=== PATIENT | female | born 1945 | race Caucasian/White ===

== ENCOUNTER 2020-10-06 15:58 | Inpatient (IN) ==
[2020-10-06] MEDS ORDERED: 0.9 % SODIUM CHLORIDE 250 ML IV SCH (20:00)
[2020-10-06] MEDS ORDERED: ALBUTEROL SULFATE 2.5 MG/3 ML NEBULIZER NEB PRN (20:13)
[2020-10-06] MEDS ORDERED: NITROGLYCERIN 0.4 MG TAB.SUBL SL PRN (20:13)
[2020-10-06] MEDS ORDERED: ONDANSETRON 4 MG/2 ML VIAL IV PRN (20:13)
[2020-10-06] MEDS ORDERED: guaiFENesin/CODEINE 10 ML UDC PO PRN (20:27)
[2020-10-06] MEDS ORDERED: VANCOMYCIN PER PHARMACY IV SCH ×2 (20:30→20:39)
[2020-10-06] MEDS: HYDROcodone/APAP 5/325MG TABLET PO PRN (20:42)
[2020-10-06] MEDS: 0.9 % SODIUM CHLORIDE 10 ML SYRINGE IV SCH (20:43)
[2020-10-06] MEDS: HEPARIN 5,000 UNIT/ML VIAL SQ SCH (20:43)
--- NOTE | 2020-10-06 20:47 | Internal Med History&Physical ---
HPI History of Present Illness Patient information: Note initiated : 10/06/20 at 8:39 pm Service Date, if different from initiated Date: [] Patient: Radha Martínez 75 y/o F admitted on 10/06/20 for ankle. Chief Complaint: [] History of present illness: Ms. 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 The patient was admitted to the OSH on 10/03, managed with IV antibiotics and after discussing the findings with Dr. Antony who performed the initial surgery at [facility] she was transferred to [facility] due to a bed shortage at [facility]. The hospital at [facility] was complicated by C diff colitis which was diagnosed on 10/05, the patient was started on oral Vancomycin. Per the available documents the hospital stay was otherwise uncomplicated. She arrives in stable condition, she is a poor historian and does not know her medications well. Collateral information from her Daughter, Rhiannon, revealed that the patient developed right foot pain 1-2 weeks ago and wounds were noticed shortly after that. The patient apparently was weight bearing on the foot at that time. At the OSH she had a markedly elevated CRP concerning for osteomyelitis. Per report the patient had blood cultures drawn and wound cultures drawn at [facility]. She was treated with IV Vancomycin and Ceftriaxone. ROS reviewed in detail and pertiennt for recent chills, right foot pain, new wounds, and intermittent RUQ pain. Pertinent negatives are no chest pain or dyspnea, otherwise negative ROS. Constitutional Constitutional: Present chills; Absent fever(s) Cardiovascular Cardiovascular: Absent chest pain, chest pain at rest and dyspnea Respiratory Respiratory: Absent cough and dyspnea Gastrointestinal Gastrointestinal: Absent abdominal pain, constipation and nausea Genitourinary Genitourinary: Absent dysuria and urinary frequency Musculoskeletal Additional comments: Right foot and ankle pain. Integumentary Integumentary: Present skin ulcer and sores Neurological Neurological: Present as per HPI Psychiatric Psychiatric: Present as per HPI PFSH PFSH All Active Problems (Updated 10/06/20 @ 20:13 by Chase Kahn MD) Ankle wound (Acute) C. difficile colitis (Acute) Ankle fracture (Acute) Medical History (Updated 10/06/20 @ 20:13 by Chase Kahn MD) Atrial fibrillation (Acute) CKD (chronic kidney disease) (Acute) COPD (chronic obstructive pulmonary disease) (Acute) Diabetes mellitus (Acute) HFrEF (heart failure with reduced ejection fraction) (Acute) Neuropathy (Acute) Surgical History (Updated 10/06/20 @ 20:40 by Chase Kahn MD) Ankle fracture, right (Acute) Family History (Updated 10/06/20 @ 20:41 by Chase Kahn MD) Sister Diabetes mellitus Social History (Updated 10/06/20 @ 20:42 by Chase Kahn MD) smoking status: Former smoker alcohol intake frequency: does not drink substance use type: does not use MEDS/ALLERGIES Home Medications and Allergies Allergies Allergy/AdvReac Type Severity Reaction Status Date / Time No Known Drug Allergies Allergy Verified 10/06/20 19:54 EXAM Head Head exam: Present atraumatic and normal inspection Eye Eye exam: Present normal appearance; Absent scleral icterus ENT ENT exam: Present normal exam Neck Neck exam: Present full ROM; Absent lymphadenopathy and tenderness Respiratory Respiratory exam: Present normal respiratory exam; Absent accessory muscle use, respiratory distress and wheezes Cardiovascular Cardiovascular exam: Present normal rate and rhythm GI/Abdominal GI/Abdominal exam: Present soft; Absent distended and tenderness Extremities Exam Additional comments: right foot in soft cast, wounds on dorsal and medial aspect of foot. Neurological Exam Neurological exam: Present CN II-XII intact and oriented X3 Psychiatric Psychiatric exam: Absent agitated and anxious Skin Additional comments: wound on foot with serous drainage present DATA Data Completed and Pending Labs: Labs from last 24 hours 10/06/20 10/06/20 10/06/20 19:50 19:50 19:50 WBC Pending RBC Pending Hgb Pending Hct Pending MCV Pending MCH Pending MCHC Pending RDW Pending Plt Count Pending MPV Pending Platelet Estimate Pending RBC Morphology Pending PT Pending INR Pending C-Reactive Protein Pending A/P Narrative A/P Narrative: Assessment: 75-year-old abilities, CAD, COPD, CKD stage III, DM, afib, right ankle fracture status post ORIF now with other fracture right fibula and new wounds concerning for surgical site infection, suspected osteomyelitis. #Right fibular shaft fracture #Probable surgical site infection #Suspected osteomyelitis Orthopedic surgery plans to take the patient to surgery tomorrow, suspect the patient has osteomyelitis with hardware involvement. If that is the case, salvage of hardware may be difficult and necessitate mcfp IV antibiotic therapy and possibly life long antibiotic suppression. Will start IV Vancomycin for now, should cover the most likely organisms. No point in getting blood cultures since the patient has been on antibiotics for days at the outside hospital, however surgical cultures may be helpful in guiding antibiotic treatment. MRSA nasal PCR. Admission CBC, CMP, INR, type and screen. Continue antiplatelets for recent CRISTAL (05/2020) if possible. Will get a preoperative EKG for a baseline, otherwise no further preoperative evaluation necessary and ok to proceed with surgery. Hold home lasix. Analgesics prn. NPO at midnight. Discussed medications with pharmacy as there appear to be multiple discrepancies, pharmacy will review her home medications. #CAD s/p CRISTAL - continue aspirin and effient as discussed with ortho, continue atorvastatin and nitro prn. EKG for baseline. #C diff colitis - continue oral vancomycin QID and appropriate contact precautions. #DM type II - correction humalog SSI-low for now. #HFrEF - stable, hold home lasix preoperatively, continue home Coreg and isosorbide dinitrate. Family says the patient was taking spironolactone as well, will verify with pharmacy's assistance. #CKD III - monitor renal function, avoid nephrotoxic meds. #COPD - Continue home Incruse Ellipta and Symbicort, both nonformulary, and albuterol nebs prn. If unable to get these meds start scheduled duonebs and pulmicort. #Paroxysmal atrial fibrillation - currently not on anticoagulation, probably because of dual antiplatelet therapy. On amiodarone at home, continue when dose verified. #Hx of bladder and lung mass - concerning for malignancy, will discuss with the patient and consider an initial workup. #DVT prophylaxis - heparin SQ Time Spent With Patient Time: Total time spent is greater than 50% in coordination of care (as documented) at patient's floor/unit and/or counseling patient: 72 minutes.
[2020-10-06] MEDS ORDERED: FLUTICASONE/SALMETEROL 500/50 INHALER #14 INH SCH (21:00)
[2020-10-06] MEDS ORDERED: GABAPENTIN 400 MG CAPSULE PO SCH (21:00)
[2020-10-06] MEDS ORDERED: VANCOMYCIN 1,250 MG in 0.9 % SODIUM CHLORIDE 500 ML IV ONE (21:00)
[2020-10-06] MEDS ORDERED: DEXTROSE 31 GM ORAL.SUSP PO PRN (21:35)
[2020-10-06] MEDS ORDERED: DEXTROSE 50% 50 ML VIAL IV PRN (21:35)
[2020-10-06] MEDS: DOCUSATE SODIUM 100 MG CAPSULE PO SCH (21:41)
[2020-10-06] MEDS: DULoxetine 30 MG CAPSULE PO SCH (21:41)
[2020-10-06] MEDS: ISOSORBIDE DINITRATE 10 MG TABLET PO SCH (21:42)
[2020-10-06] MEDS: SENNOSIDES 1 TABLET PO SCH (21:42)
[2020-10-06] MEDS: VANCOMYCIN ORAL SOL 1,000 MG/10 ML BOTTLE PO SCH (21:51)
[2020-10-06 23:01] LABS: INR 1.1 (0.9-1.1); Prothrombin Time 14.6 sec (11.9-14.5)
[2020-10-06 23:40] LABS: Anisocytosis 1+ (None Seen); Eosinophils % (Manual) 4 % (0-7); Hematocrit 31.9 % (36.0-48.0); Hemoglobin 9.9 g/dL (12.0-15.0); Lymphocytes % 27 % (15-49); Macrocytosis 1+ (None Seen); Mean Cell Volume 107.8 fL (80.0-100.0); Mean Platelet Volume 8.7 fL (7.4-10.4); Monocytes % (Manual) 4 % (1-12); Platelet Count 397 K/mcL (140-440); Platelet Estimate NORMAL (Normal); RBC 2.96 M/mcL (4.00-5.20); RBC Morphology ABNORMAL (Normal); Red Cell Distribution Width 15.1 % (11.5-14.5); Segmented Neutrophils % 65 % (38-78); WBC 7.9 K/mcL (4.5-11.0)
[2020-10-07] MEDS: 0.9 % SODIUM CHLORIDE 10 ML SYRINGE IV SCH ×3 (05:16→20:39)
[2020-10-07 07:16] LABS: ALT/SGPT 10 U/L (<40); AST/SGOT 18 U/L (<32); Albumin 3.1 gm/dL (3.2-5.2); Albumin/Globulin Ratio 0.9 (1.0-2.3); Alkaline Phosphatase 92 U/L (39-117); Bilirubin,Direct < 0.2 mg/dL (<0.3); Bilirubin,Total < 0.2 mg/dL (0.1-1.0); Blood Urea Nitrogen 16 mg/dL (8-23); Calcium 8.8 mg/dL (8.6-10.4); Carbon Dioxide 22 mmol/L (22-30); Chloride 106 mmol/L (96-108); Globulin 3.4 gm/dL (2.2-3.7); Glomerular Filtration Rate 32; Glucose 132 mg/dL (70-105); Lactate Dehydrogenase 183 U/L (135-225); Phosphorous 4.6 mg/dL (2.5-4.5); Triglycerides 246 mg/dL (<150); Uric Acid 7.7 mg/dL (2.5-8.0)
[2020-10-07] MEDS: CARVEDILOL 3.125 MG TABLET PO SCH ×2 (07:27→18:04)
[2020-10-07] MEDS: OMEPRAZOLE 20 MG CAPSULE PO SCH ×2 (07:27→18:03)
[2020-10-07] MEDS: INSULIN LISPRO 1 UNIT/0.01 ML UNIT SQ SCH ×4 (07:30→22:10)
[2020-10-07] MEDS ORDERED: AMIODARONE HCL 200 MG TABLET PO SCH (08:00)
[2020-10-07 09:51] LABS: Vancomycin,Random 21.7 ug/mL
[2020-10-07 09:54] LABS: Appearance,Urine CLEAR (Clear); Bilirubin,Urine Negative (Negative); Color,Urine YELLOW; Culture Indicated,Urine No; Glucose,Urine (UA) Negative (Negative); Ketones,Urine Negative (Negative); Leukocyte Esterase,Urine Negative /ug (Negative); Nitrate,Urine Negative (Negative); Protein,Urine Negative (Negative); Specific Gravity,Urine 1.018 (1.000-1.035); Urine Blood Negative (Negative); Urobilinogen,Urine Negative
[2020-10-07] MEDS: EFFIENT 10 MG PO SCH (10:46)
[2020-10-07] MEDS: INCRUSE ELLIPTA 62.5 MCG INH SCH (10:46)
[2020-10-07] MEDS: DOCUSATE SODIUM 100 MG CAPSULE PO SCH ×2 (10:47→20:38)
[2020-10-07] MEDS: VANCOMYCIN ORAL SOL 1,000 MG/10 ML BOTTLE PO SCH ×4 (10:49→20:40)
[2020-10-07] MEDS: ATORVASTATIN 40 MG TABLET PO SCH (10:51)
[2020-10-07] MEDS: ASPIRIN 81 MG TAB.CHEW CHEWED SCH (10:51)
[2020-10-07] MEDS: ISOSORBIDE DINITRATE 10 MG TABLET PO SCH ×3 (10:51→20:40)
[2020-10-07] MEDS: HEPARIN 5,000 UNIT/ML VIAL SQ SCH ×2 (10:54→20:38)
[2020-10-07] MEDS ORDERED: ceFAZolin 2 GM in DEXTROSE 5% IN WATER 50 ML IV SCH (13:30)
[2020-10-07] MEDS ORDERED: fentaNYL 250 MCG/5 ML VIAL IV ONE (13:58)
[2020-10-07] MEDS ORDERED: hydrALAZINE 20 MG/ML VIAL ONE (13:58)
[2020-10-07] MEDS ORDERED: PROPOFOL 200 MG/20 ML VIAL IV ONE (13:58)
[2020-10-07] MEDS ORDERED: LIDOCAINE HCL/PF 100 MG/5 ML SYRINGE IV ONE (13:58)
[2020-10-07] MEDS ORDERED: KETAMINE 100 MG/ML ML ONE (13:58)
[2020-10-07] MEDS ORDERED: DEXAMETHASONE 10 MG/ML VIAL ONE (13:58)
[2020-10-07] MEDS ORDERED: PHENYLEPHRINE 10 MG/ML VIAL ONE (13:58)
[2020-10-07] MEDS ORDERED: ONDANSETRON 4 MG/2 ML VIAL ONE (13:58)
[2020-10-07] MEDS ORDERED: ACETAMINOPHEN 1,000 MG/100 ML BAG IV ONE (15:32)
[2020-10-07] MEDS ORDERED: IPRATROPIUM/ALBUTEROL 3 ML AMPUL.NEB NEB PRN (15:32)
[2020-10-07] MEDS ORDERED: ONDANSETRON 4 MG/2 ML VIAL IV PRN (15:32)
[2020-10-07] MEDS ORDERED: MEPERIDINE 25 MG/ML SYRINGE IV PRN (15:32)
[2020-10-07] MEDS ORDERED: PROMETHAZINE 25 MG/ML VIAL IV PRN (15:32)
[2020-10-07] MEDS ORDERED: LACTATED RINGERS 250 ML IV PRN (15:32)
[2020-10-07] MEDS ORDERED: diphenhydrAMINE 50 MG/ML VIAL IV PRN (15:32)
[2020-10-07] MEDS ORDERED: fentaNYL 100 MCG/2 ML VIAL IV PRN (15:32)
[2020-10-07] MEDS ORDERED: NALOXONE HCL 0.4 MG/ML VIAL IV PRN (15:32)
[2020-10-07] MEDS ORDERED: LACTATED RINGERS 1,000 ML IV SCH (15:45)
--- NOTE | 2020-10-07 16:31 | Brief Operative Note ---
Brief Operative Note Date of procedure: 10/07/20 Pre-op diagnosis: secondary ankle fracture with dislocation possible infection Post-op diagnosis: same Procedure: I and D removal of hardware, revision ORIF, syndesomosis repair Grafts/Implants: Yes Anesthesia: GETA Complications: none Surgeon: Duane Antony Specimens Removed/Pathology: other (culture) Condition: stable Disposition: PACU
[2020-10-07] MEDS ORDERED: DULAGLUTIDE 1.5 MG SUB-Q SCH (16:45)
[2020-10-07] MEDS ORDERED: ERGOCALCIFEROL (VITAMIN D2) 50,000 UNIT CAPSULE PO SCH (16:45)
[2020-10-07] MEDS: HYDROcodone/APAP 5/325MG TABLET PO PRN ×2 (17:49→22:09)
--- NOTE | 2020-10-07 18:02 | XRay Report ---
CLINICAL INFORMATION: Post Op COMPARISON: 10/03/2020 FINDINGS: The Guillory C fracture has been reduced to anatomic alignment transfixed by lateral plate and screws with two long screws extending through the tibial fibular syndesmosis. Comminuted transverse fracture of the medial malleolus base does not appear transfixed. There is; however a screw extending through the medial tibial metaphysis into the central talus. The posterior malleolar fracture fragment alignment as improved, however there is 4 mm persistent posterior and superior displacement. It is transfixed by three screws. Ankle mortise shows IMPRESSION: ORIF trimalleolar fracture. Ankle effusion. Interpreted and Authenticated by: Larry Shaikh 10/07/20
[2020-10-07] MEDS: AMIODARONE HCL 200 MG TABLET PO SCH (18:03)
--- NOTE | 2020-10-07 19:47 | Internal Med Progress Note ---
SUBJECTIVE Subjective Patient information: Note initiated : 10/07/20 at 7:46 pm Service Date, if different from initiated Date: [] Patient: Radha Martínez 75 y/o F admitted on 10/06/20 for Ankle Fracture. Chief Complaint: [Ankle fracture] Interval history: Ms. 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 The patient was admitted to the OSH on 10/03, managed with IV antibiotics and after discussing the findings with Dr. Antony who performed the initial surgery at [facility], she was transferred to [facility] due to a staff shortage at [facility]. The hospital stay at [facility] was complicated by C diff colitis which was d iagnosed on 10/05 and treated with oral Vancomycin. Per the available documents the hospital stay was otherwise uncomplicated. She arrived in stable condition and underwent surgery 10/07 with redo ORIF and removal of hardware. 10/07-ORIF today with revision ORIF, I&D, and removal of hardware, syndesomosis repair, cultures taken and pending. Constitutional Vitals: Vital Signs Temp Pulse Resp BP Pulse Ox 97.8 F 65 14 130/68 97 10/07/20 17:20 10/07/20 17:20 10/07/20 17:20 10/07/20 17:20 10/07/20 17:20 Period Temp Pulse Resp BP Sys/Krishna Pulse Ox Last 24 Hr 97.3 F-98.3 F 60-70 14-16 116-156/58-80 91-100 Intake and Output 10/07/20 10/07/20 10/07/20 05:59 13:59 21:59 Intake Total 750 2000 Output Total 2 150 Balance 748 1850 Weight 75.835 kg Patient Weight 10/08/20 05:59 Weight 75.835 kg Intake & Output: Intake & Output 10/07/20 10/07/20 10/07/20 05:59 13:59 21:59 Intake Total 750 2000 Output Total 2 150 Balance 748 1850 Weight 75.835 kg Intake: IV 500 Vancomycin 1,250 mg In Sodium 500 Chloride 0.9% 500 ml @ 333.3 mls/hr IV ONCE ONE Rx#: [id number] Oral 250 IV - Manual Only 2000 Output: # of times incontinent of urine 2 Estimated Blood Loss 150 Other: Stool Size Moderate Small Stool Color Brown Brown Stool Consistency Loose Soft # of times incontinent of 1 1 Bowels Head Head exam: Present atraumatic and normal inspection Eye Eye exam: Present normal appearance Neck Neck exam: Present full ROM and tenderness Respiratory Respiratory exam: Absent accessory muscle use, rales, respiratory distress and wheezes Cardiovascular Cardiovascular exam: Present normal rate and rhythm GI/Abdominal GI/Abdominal exam: Present soft; Absent distended and tenderness Extremities Exam Additional comments: Right foot wrapped in clean bandage. Neurological Exam Neurological exam: Present alert and CN II-XII intact Psychiatric Psychiatric exam: Present normal mood Skin Skin exam: Present normal color and warm OBJ DATA Labs CBC & Chem 7: 10/06/20 21:35 10/07/20 05:30 Labs: Abnormal Lab Results 10/07/20 10/06/20 10/06/20 05:30 21:35 21:35 RBC 2.96 L Hgb 9.9 L Hct 31.9 L MCV 107.8 H RDW 15.1 H Plt Count RBC Morphology Abnormal A Anisocytosis 1+ A Macrocytosis 1+ A PT 14.6 H Creatinine 1.6 H Glucose 132 H Phosphorus 4.6 H GGT 73 H C-Reactive Protein Albumin 3.1 L Albumin/Globulin Ratio 0.9 L Triglycerides 246 H 10/06/20 10/06/20 19:50 19:50 RBC L Hgb L Hct L MCV H RDW H Plt Count H RBC Morphology Anisocytosis Macrocytosis PT Creatinine Glucose Phosphorus GGT C-Reactive Protein 3.20 H Albumin Albumin/Globulin Ratio Triglycerides Meds: Medications Acetaminophen (Tylenol) 650 mg PO Q6HP PRN; Protocol PRN Reason: Per Pain Protocol/Fever > 101 Hydrocodone Bitart/Acetaminophen (Meridian 5/325mg) 1 tab PO Q4HP PRN; Protocol PRN Reason: Per Pain Protocol Last Admin: 10/07/20 17:49 Dose: 1 tab Documented by: Albuterol Sulfate (Ventolin) 2.5 mg NEB Q2HP PRN PRN Reason: Shortness Of Breath Amiodarone HCl (Cordarone) 200 mg PO BIDCC [facility] Last Admin: 10/07/20 18:03 Dose: 200 mg Documented by: Aspirin (Aspirin) 81 mg CHEWED DAILY [facility] Last Admin: 10/07/20 10:51 Dose: Not Given Documented by: Atorvastatin Calcium (Lipitor) 40 mg PO DAILY [facility] Last Admin: 10/07/20 10:51 Dose: Not Given Documented by: [facility] ([facility]g) [facility] Last Admin: 10/07/20 18:04 Dose: 3.125 mg Documented by: Cefazolin Sodium (Ancef) 2 gm IV Q8H [facility] Dextrose (Dextrose 50%) 0 ml IV UD PRN PRN Reason: Hypoglycemia Diagnostic Test (Pha) (Accu-Chek) 1 each FS [facility] Last Admin: 10/07/20 17:52 Dose: 1 each Documented by: Docusate Sodium (Colace) 100 mg PO BID [facility] Last Admin: 10/07/20 10:47 Dose: Not Given Documented by: Duloxetine HCl (Cymbalta) 30 mg PO HS [facility] Last Admin: 10/06/20 21:41 Dose: 30 mg Documented by: Gabapentin (Neurontin) 400 mg PO DAILY [facility] Glucose (Insta-Glucose) 15 gm PO PRN PRN PRN Reason: Hypoglycemia Guaifenesin/Codeine Phosphate (Robitussin Ac) 5 ml PO Q4HP PRN PRN Reason: Cough Heparin Sodium (Porcine) (Heparin) 5,000 unit SQ Q12 [facility] Last Admin: 10/07/20 10:54 Dose: 5,000 unit Documented by: Hydromorphone HCl (Dilaudid) 0.5 mg IV Q4HP PRN; Protocol PRN Reason: Per Pain Protocol Insulin Human Lispro (Humalog) 0 unit SQ ACHS [facility]; Protocol Last Admin: 10/07/20 18:05 Dose: 6 unit Documented by: Isosorbide Dinitrate (Isordil) 10 mg PO TID [facility] Last Admin: 10/07/20 15:34 Dose: Not Given Documented by: Nitroglycerin (Nitrostat) 0.4 mg SL Q5M PRN PRN Reason: Chest Pain Omeprazole (Prilosec) 20 mg PO BIDAC [facility] Last Admin: 10/07/20 18:03 Dose: 20 mg Documented by: Ondansetron HCl (Zofran) 4 mg IV Q6HP PRN PRN Reason: Nausea And Vomiting Effient 10 Mg Tablet 1 dose PO DAILY [facility] Last Admin: 10/07/20 10:46 Dose: Not Given Documented by: Incruse Ellipta 62.5 (Mcg Inhaler) 1 dose INH DAILY [facility] Last Admin: 10/07/20 10:46 Dose: Not Given Documented by: Budesonide- Formoterol [ Symbicort] 160 Mcg-4 .5 Mcg/Actuation Inhaler 2 dose INH BID JUSTO Senna (Senokot) 2 tab PO HS [facility] Last Admin: 10/06/20 21:42 Dose: Not Given Documented by: Sertraline HCl (Zoloft) 25 mg PO DAILY [facility] Sodium Chloride (Saline Flush) 10 ml IV Q8 [facility] Last Admin: 10/07/20 15:34 Dose: Not Given Documented by: Vancomycin HCl (Vancomycin Oral Catie) 125 mg PO QID [facility]; Protocol Last Admin: 10/07/20 18:16 Dose: 125 mg Documented by: Vancomycin HCl (Vancomycin Per Pharmacy) 1 order IV UD [facility]; Protocol A/P Narrative A/P Narrative: A/P Narrative: Assessment: 75-year-old abilities, CAD, COPD, CKD stage III, DM, afib, right ankle fracture status post ORIF now with other fracture right fibula and new wounds concerning for surgical site infection, suspected osteomyelitis. Underwent redo ORIF 10/07. #Right fibular shaft fracture #Probable surgical site infection #Possible osteomyelitis Had redo ORIF 10/07, hardware removed, surgical cultures pending. On IV Vancom ycin for now, Cefazolin x2 added by surgery, should cover the most likely organisms. Following blood cultures from [facility]. MRSA nasal PCR negative. Continue Aspirin and Effient (patient's supply) for recent CRISTAL (05/2020). Analgesics prn. Monitor for post operative complications. Consider ID consult. #CAD s/p CRISTAL - continue aspirin and effient as discussed with ortho, continue atorvastatin and nitro prn. #C diff colitis - continue oral vancomycin QID and appropriate contact precautions. #DM type II - Add Lantus 5 units pm, continue correction humalog SSI. May need higher doses of insulin, including preprandial insulin. #HFrEF - stable, holding home lasix for now, continue home Coreg and isosorbide dinitrate. May have been taking Spironolactone as well but will not resume now due to CKD. #CKD III - monitor renal function, avoid nephrotoxic meds. #COPD - Continue home Incruse Ellipta and Symbicort, both non-formulary, and albuterol nebs prn. #Paroxysmal atrial fibrillation - currently not on anticoagulation, probably because of dual antiplatelet therapy. Continue home amiodarone. #Anemia - probably chronic, follow hemoglobin post op, iron studies. #Hypertension - stable blood pressure post op-holding home Chlorthalidone for now. #Depression - continue Sertraline. #Hx of bladder and lung mass - concerning for malignancy, will discuss with the patient and consider an initial workup. #DVT prophylaxis - heparin SQ Time Spent With Patient Time: Total time spent is greater than 50% in coordination of care (as documented) at patient's floor/unit and/or counseling patient: Total time spent with greater than 50% in coordination of care (as documented) at patient's floor/unit and/or counseling patient:: 25 - 35 minutes QUALITY VTE Deep Vein Thrombosis/Pulmonary Embolism Present on Admission: No
[2020-10-07] MEDS: SENNOSIDES 1 TABLET PO SCH (20:38)
[2020-10-07] MEDS: HYDROmorphone 0.5 MG/0.5 ML SYRINGE IV PRN (20:39)
[2020-10-07] MEDS: DULoxetine 30 MG CAPSULE PO SCH (20:39)
[2020-10-07] MEDS ORDERED: ATORVASTATIN 40 MG TABLET PO SCH (21:00)
[2020-10-07] MEDS ORDERED: CARVEDILOL 3.125 MG TABLET PO SCH (21:00)
[2020-10-07] MEDS ORDERED: HYDROcodone/APAP 5/325MG TABLET PO SCH (21:00)
[2020-10-07] MEDS ORDERED: ISOSORBIDE DINITRATE 10 MG TABLET PO SCH (21:00)
[2020-10-07] MEDS ORDERED: 0.9 % SODIUM CHLORIDE 10 ML SYRINGE IV SCH (22:00)
[2020-10-07] MEDS: BUDESONIDE INH SCH (22:10)
[2020-10-07] MEDS: INSULIN GLARGINE, HUMAN 1 UNIT/0.01 ML SQ SCH (22:10)
[2020-10-07] MEDS: FORMOTEROL INH SCH (22:10)
[2020-10-07] MEDS: ceFAZolin 1 GM VIAL IV SCH (22:15)
[2020-10-07 23:17] LABS: Blood Urea Nitrogen 19 mg/dL (8-23); Calcium 9.1 mg/dL (8.6-10.4); Carbon Dioxide 19 mmol/L (22-30); Chloride 98 mmol/L (96-108); Glomerular Filtration Rate 34; Glucose 281 mg/dL (70-105)
[2020-10-08] MEDS: HYDROmorphone 0.5 MG/0.5 ML SYRINGE IV PRN (01:39)
[2020-10-08] MEDS: HYDROcodone/APAP 5/325MG TABLET PO PRN (02:53)
[2020-10-08] MEDS: 0.9 % SODIUM CHLORIDE 10 ML SYRINGE IV SCH ×3 (05:23→20:19)
[2020-10-08] MEDS: ceFAZolin 1 GM VIAL IV SCH (05:23)
[2020-10-08 06:56] LABS: Basophils # (Auto) 0.03 K/mcL (0.00-0.20); Basophils % (Auto) 0.3 % (0.0-2.0); Eosinophils # (Auto) 0.03 K/mcL (0.00-0.70); Eosinophils % (Auto) 0.3 % (0.0-7.0); Hematocrit 28.2 % (36.0-48.0); Hemoglobin 8.8 g/dL (12.0-15.0); Lymphocytes % (Auto) 14.3 % (15.0-49.0); Mean Cell Volume 106.4 fL (80.0-100.0); Mean Corpuscular HGB Conc 31.2 g/dL (31.0-36.0); Mean Platelet Volume 8.9 fL (7.4-10.4); Monocytes # (Auto) 0.28 K/mcL (0.10-0.90); Monocytes % (Auto) 2.7 % (1.0-12.0); Neutrophils % (Auto) 82.4 % (38.0-78.0); Platelet Count 407 K/mcL (140-440); RBC 2.65 M/mcL (4.00-5.20); Red Cell Distribution Width 14.7 % (11.5-14.5); WBC 10.5 K/mcL (4.5-11.0)
[2020-10-08] MEDS: INSULIN LISPRO 1 UNIT/0.01 ML UNIT SQ SCH ×4 (07:04→20:17)
--- NOTE | 2020-10-08 07:33 | Orthopedic Progress Note ---
SUBJECTIVE Subjective Patient information: Note initiated : 10/08/20 at 7:32 am Service Date, if different from initiated Date: [] Patient: Radha Martínez 75 y/o F admitted on 10/06/20 for Ankle Fracture. Chief Complaint: [Pt is stable this morning on post operative day without any significant concerns or complaints. Patients vital signs have remained stable. Patients dressing is dry and is grossly intact from a neurovascular and motor standpoint. Patients 10 point ROS is otherwise negative. ] Constitutional Vitals: Vital Signs Temp Pulse Resp BP Pulse Ox 97.4 F 66 18 142/95 98 10/08/20 06:58 10/08/20 06:58 10/08/20 06:58 10/08/20 06:58 10/08/20 06:58 Period Temp Pulse Resp BP Sys/Krishna Pulse Ox Last 24 Hr 97.4 F-98.1 F 52-70 - 124-156/66-95 93-100 Intake and Output 10/07/20 10/08/20 10/08/20 21:59 05:59 13:59 Intake Total 2150 Output Total 150 300 451 Balance 1999300 451 Weight 168 lb 9.6 oz Intake & Output: Intake & Output 10/07/20 10/08/20 10/08/20 21:59 05:59 13:59 Intake Total 2150 Output Total 150 300 451 Balance 1999300 -451 Weight 168 lb 9.6 oz Intake: IV 150 Ancef 2 gm In Dextrose 5% in 50 Water 50 ml @ 100 mls/hr IV PREOP [facility] Rx#:[id number] IV - Manual Only 1999 Output: Void Amount 300 # of times incontinent of urine 1 Urine/Stool Mix 450 Estimated Blood Loss 150 Other: Meal Dinner Percent of Meal Consumed 75% Urine Appearance Clear Urine Color Pale Stool Size Small Stool Color Brown Brown Yellow Stool Consistency Soft Liquid Liquid Watery Loose # of times incontinent of 1 Bowels Extremities Exam Extremities exam: Present normal inspection, Foot pink and warm and neurovascular intact OBJ DATA Labs CBC & Chem 7: 10/08/20 05:49 10/07/20 20:38 Labs: Abnormal Lab Results 10/08/20 10/07/20 10/07/20 05:49 20:38 05:30 RBC 2.65 L Hgb 8.8 L Hct 28.2 L MCV 106.4 H RDW 14.7 H Plt Count Neut % (Auto) 82.4 H Lymph % (Auto) 14.3 L Absolute Neutrophils 8.64 H RBC Morphology Anisocytosis Macrocytosis PT Sodium 132 L Potassium 5.2 H Carbon Dioxide 19 L Creatinine 1.5 H 1.6 H Glucose 281 H 132 H Phosphorus 4.6 H GGT 73 H C-Reactive Protein Albumin 3.1 L Albumin/Globulin Ratio 0.9 L Triglycerides 246 H 10/06/20 10/06/20 10/06/20 21:35 21:35 19:50 RBC 2.96 L Hgb 9.9 L Hct 31.9 L MCV 107.8 H RDW 15.1 H Plt Count Neut % (Auto) Lymph % (Auto) Absolute Neutrophils RBC Morphology Abnormal A Anisocytosis 1+ A Macrocytosis 1+ A PT 14.6 H Sodium Potassium Carbon Dioxide Creatinine Glucose Phosphorus GGT C-Reactive Protein 3.20 H Albumin Albumin/Globulin Ratio Triglycerides 10/06/20 19:50 RBC L Hgb L Hct L MCV H RDW H Plt Count H Neut % (Auto) Lymph % (Auto) Absolute Neutrophils RBC Morphology Anisocytosis Macrocytosis PT Sodium Potassium Carbon Dioxide Creatinine Glucose Phosphorus GGT C-Reactive Protein Albumin Albumin/Globulin Ratio Triglycerides Meds: Medications Acetaminophen (Tylenol) 650 mg PO Q6HP PRN; Protocol PRN Reason: Per Pain Protocol/Fever > 101 Hydrocodone Bitart/Acetaminophen ([place] 5/325mg) 1 tab PO Q4HP PRN; Protocol PRN Reason: Per Pain Protocol Last Admin: 10/08/20 02:53 Dose: 1 tab Documented by: Albuterol Sulfate (Ventolin) 2.5 mg NEB Q2HP PRN PRN Reason: Shortness Of Breath Amiodarone HCl (Cordarone) 200 mg PO BIDCC [facility] Last Admin: 10/07/20 18:03 Dose: 200 mg Documented by: Aspirin (Aspirin) 81 mg CHEWED DAILY [facility] Last Admin: 10/07/20 10:51 Dose: Not Given Documented by: Atorvastatin Calcium (Lipitor) 40 mg PO DAILY [facility] Last Admin: 10/07/20 10:51 Dose: Not Given Documented by: Carvedilol (Coreg) 3.125 mg PO BIDCC [facility] Last Admin: 10/07/20 18:04 Dose: 3.125 mg Documented by: Cefazolin Sodium (Ancef) 2 gm IV Q8H [facility] Last Admin: 10/08/20 05:23 Dose: 2 gm Documented by: Dextrose (Dextrose 50%) 0 ml IV UD PRN PRN Reason: Hypoglycemia Diagnostic Test (Pha) (Accu-Chek) 1 each FS [facility] Last Admin: 10/08/20 06:55 Dose: 1 each Documented by: Docusate Sodium (Colace) 100 mg PO BID [facility] Last Admin: 10/07/20 20:38 Dose: 100 mg Documented by: Duloxetine HCl (Cymbalta) 30 mg PO [facility] Last Admin: 10/07/20 20:39 Dose: 30 mg Documented by: Gabapentin (Neurontin) 400 mg PO DAILY [facility] Glucose (Insta-Glucose) 15 gm PO PRN PRN PRN Reason: Hypoglycemia Guaifenesin/Codeine Phosphate (Robitussin Ac) 5 ml PO Q4HP PRN PRN Reason: Cough Heparin Sodium (Porcine) (Heparin) 5,000 unit SQ Q12 [facility] Last Admin: 10/07/20 20:38 Dose: 5,000 unit Documented by: Hydromorphone HCl (Dilaudid) 0.5 mg IV Q4HP PRN; Protocol PRN Reason: Per Pain Protocol Last Admin: 10/08/20 01:39 Dose: 0.5 mg Documented by: Insulin Glargine (Lantus) 5 unit SQ [facility] Last Admin: 10/07/20 22:10 Dose: 5 units Documented by: Insulin Human Lispro (Humalog) 0 unit SQ [facility]; Protocol Last Admin: 10/08/20 07:04 Dose: 1 units Documented by: Isosorbide Dinitrate (Isordil) 10 mg PO TID [facility] Last Admin: 10/07/20 20:40 Dose: 10 mg Documented by: Nitroglycerin (Nitrostat) 0.4 mg SL Q5M PRN PRN Reason: Chest Pain Omeprazole (Prilosec) 20 mg PO BIDAC [facility] Last Admin: 10/07/20 18:03 Dose: 20 mg Documented by: Ondansetron HCl (Zofran) 4 mg IV Q6HP PRN PRN Reason: Nausea And Vomiting Effient 10 Mg Tablet 1 dose PO DAILY [facility] Last Admin: 10/07/20 10:46 Dose: Not Given Documented by: Incruse Ellipta 62.5 (Mcg Inhaler) 1 dose INH DAILY [facility] Last Admin: 10/07/20 10:46 Dose: Not Given Documented by: Budesonide- Formoterol [ Symbicort] 160 Mcg-4 .5 Mcg/Actuation Inhaler 2 dose INH BID [facility] Last Admin: 10/07/20 22:10 Dose: Not Given Documented by: Senna (Senokot) 2 tab PO HS [facility] Last Admin: 10/07/20 20:38 Dose: 2 tab Documented by: Sertraline HCl (Zoloft) 25 mg PO DAILY [facility] Sodium Chloride (Saline Flush) 10 ml IV Q8 [facility] Last Admin: 10/08/20 05:23 Dose: 10 ml Documented by: Vancomycin HCl (Vancomycin Oral Catie) 125 mg PO QID [facility]; Protocol Last Admin: 10/07/20 20:40 Dose: 125 mg Documented by: Vancomycin HCl (Vancomycin Per Pharmacy) 1 order IV UD [facility]; Protocol A/P Narrative A/P Narrative: The patient has been educated regarding dressing care, Physical Therapy recommendations, home exercises, restrictions, and follow up appointments. The patient has had all necessary DME prescribed. The patient has remained relatively stable during their hospital course. Time Spent With Patient Time: Total time spent is greater than 50% in coordination of care (as documented) at patient's floor/unit and/or counseling patient: Total time spent with greater than 50% in coordination of care (as documented) at patient's floor/unit and/or counseling patient:: less than 15 minutes
[2020-10-08 07:35] LABS: Blood Urea Nitrogen 21 mg/dL (8-23); Calcium 8.7 mg/dL (8.6-10.4); Carbon Dioxide 20 mmol/L (22-30); Chloride 100 mmol/L (96-108); Glomerular Filtration Rate 37; Glucose 140 mg/dL (70-105); Iron 47 ug/dL (37-145); TIBC Calculation 235 ug/dl (228-428); Transferrin % Saturation 20 % (15-50)
[2020-10-08] MEDS: HYDROcodone/APAP 10/325MG TABLET PO PRN ×3 (08:04→23:02)
[2020-10-08] MEDS: OMEPRAZOLE 20 MG CAPSULE PO SCH ×2 (08:06→17:44)
[2020-10-08] MEDS: CARVEDILOL 3.125 MG TABLET PO SCH ×2 (08:06→17:44)
[2020-10-08] MEDS: ASPIRIN 81 MG TAB.CHEW CHEWED SCH (08:06)
[2020-10-08] MEDS: ATORVASTATIN 40 MG TABLET PO SCH (08:06)
[2020-10-08] MEDS: AMIODARONE HCL 200 MG TABLET PO SCH ×2 (08:06→17:45)
[2020-10-08] MEDS: SERTRALINE 50 MG TABLET PO SCH (08:06)
[2020-10-08] MEDS: DOCUSATE SODIUM 100 MG CAPSULE PO SCH ×2 (08:07→20:18)
[2020-10-08] MEDS: HEPARIN 5,000 UNIT/ML VIAL SQ SCH ×2 (08:07→20:18)
[2020-10-08] MEDS: BUDESONIDE INH SCH ×2 (08:11→20:19)
[2020-10-08] MEDS: GABAPENTIN 400 MG CAPSULE PO SCH (08:11)
[2020-10-08] MEDS: ISOSORBIDE DINITRATE 10 MG TABLET PO SCH ×3 (08:11→20:18)
[2020-10-08] MEDS: FORMOTEROL INH SCH ×2 (08:11→20:19)
[2020-10-08] MEDS: INCRUSE ELLIPTA 62.5 MCG INH SCH (08:12)
[2020-10-08] MEDS: VANCOMYCIN ORAL SOL 1,000 MG/10 ML BOTTLE PO SCH ×4 (08:12→20:17)
[2020-10-08] MEDS: EFFIENT 10 MG PO SCH (08:12)
[2020-10-08] MEDS ORDERED: PRASUGREL 10 MG PO SCH (09:00)
[2020-10-08] MEDS ORDERED: CHLORTHALIDONE 25 MG TABLET PO SCH (09:00)
[2020-10-08] MEDS ORDERED: ASPIRIN 81 MG TAB.CHEW PO SCH (09:00)
[2020-10-08] MEDS ORDERED: FUROSEMIDE 20 MG TABLET PO SCH (09:00)
[2020-10-08] MEDS ORDERED: UMECLIDINIUM INHALATION SCH (09:00)
[2020-10-08] MEDS: CEFEPIME 1 GM VIAL IV SCH ×2 (11:56→23:02)
--- NOTE | 2020-10-08 17:46 | Internal Med Progress Note ---
SUBJECTIVE Subjective Patient information: Note initiated : 10/08/20 at 5:45 pm Service Date, if different from initiated Date: [] Patient: Radha Martínez 75 y/o F admitted on 10/06/20 for Ankle Fracture. Chief Complaint: [] Interval history: Ms. 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 The patient was admitted to the OSH on 10/03, managed with IV antibiotics and after discussing the findings with Dr. Antony who performed the initial surgery at [facility], she was transferred to [facility] due to a staff shortage at [facility]. The hospital stay at [facility] was complicated by C diff colitis which was diagnosed on 10/05 and treated with oral Vancomycin. Per the available documents the hospital stay was otherwise uncomplicated. She arrived in stable condition and underwent surgery 10/07 with redo ORIF and removal of hardware. 10/07-ORIF today with revision ORIF, I&D, and removal of hardware, syndesomosis repair, cultures taken and pending. 10/08-stable, pain controlled with prn norco, resumed home lasix. ID consulted- on Vancomycin IV and Cefepime. Constitutional Vitals: Vital Signs Temp Pulse Resp BP Pulse Ox 97.8 F 60 18 149/75 96 10/08/20 16:00 10/08/20 16:00 10/08/20 16:00 10/08/20 16:00 10/08/20 16:00 Period Temp Pulse Resp BP Sys/Krishna Pulse Ox Last 24 Hr 97.4 F-97.8 F 52-66 16-20 116-149/59-95 95-98 Intake and Output 10/08/20 10/08/20 10/08/20 05:59 13:59 21:59 Intake Total 360 400 Output Total 300 452 100 Balance -300 -92 300 Intake & Output: Intake & Output 10/08/20 10/08/20 10/08/20 05:59 13:59 21:59 Intake Total 360 400 Output Total 300 452 100 Balance -300 -92 300 Intake: Oral 360 400 Output: Void Amount 300 100 # of times incontinent of urine 2 Urine/Stool Mix 450 Other: Meal Breakfast Percent of Meal Consumed 100% Feeding Ability Assist with Tray Set Up Urine Appearance Clear Urine Color Pale Straw Urine Odor Normal Stool Size Small Large Small Stool Color Brown Brown Brown Yellow Yellow Stool Consistency Soft Soft Soft Liquid Liquid # Bowel Movements 1 # of times incontinent of 1 1 Bowels Head Head exam: Present atraumatic and normal inspection Eye Eye exam: Present normal appearance ENT ENT exam: Present mucous membranes moist, normal exam and normal external ear exam Neck Neck exam: Present normal inspection Respiratory Respiratory exam: Present normal respiratory exam Cardiovascular Cardiovascular exam: Present normal rate and rhythm GI/Abdominal GI/Abdominal exam: Present normal bowel sounds Extremities Exam Additional comments: right foot in soft cast Back Exam Back exam: Present normal inspection Neurological Exam Neurological exam: Present alert and oriented X3 Skin Skin exam: Present intact and warm OBJ DATA Labs CBC & Chem 7: 10/08/20 05:49 10/08/20 05:49 Labs: Abnormal Lab Results 10/08/20 10/08/20 10/07/20 05:49 05:49 20:38 RBC 2.65 L Hgb 8.8 L Hct 28.2 L MCV 106.4 H RDW 14.7 H Plt Count Neut % (Auto) 82.4 H Lymph % (Auto) 14.3 L Absolute Neutrophils 8.64 H RBC Morphology Anisocytosis Macrocytosis PT Sodium 131 L 132 L Potassium 5.2 H Carbon Dioxide 20 L 19 L Creatinine 1.4 H 1.5 H Glucose 140 H 281 H Phosphorus GGT C-Reactive Protein Albumin Albumin/Globulin Ratio Triglycerides 10/07/20 10/06/20 10/06/20 05:30 21:35 21:35 RBC 2.96 L Hgb 9.9 L Hct 31.9 L MCV 107.8 H RDW 15.1 H Plt Count Neut % (Auto) Lymph % (Auto) Absolute Neutrophils RBC Morphology Abnormal A Anisocytosis 1+ A Macrocytosis 1+ A PT 14.6 H Sodium Potassium Carbon Dioxide Creatinine 1.6 H Glucose 132 H Phosphorus 4.6 H GGT 73 H C-Reactive Protein Albumin 3.1 L Albumin/Globulin Ratio 0.9 L Triglycerides 246 H 10/06/20 10/06/20 19:50 19:50 RBC L Hgb L Hct L MCV H RDW H Plt Count H Neut % (Auto) Lymph % (Auto) Absolute Neutrophils RBC Morphology Anisocytosis Macrocytosis PT Sodium Potassium Carbon Dioxide Creatinine Glucose Phosphorus GGT C-Reactive Protein 3.20 H Albumin Albumin/Globulin Ratio Triglycerides Meds: Medications Acetaminophen (Tylenol) 650 mg PO Q6HP PRN; Protocol PRN Reason: Per Pain Protocol/Fever > 101 Hydrocodone Bitart/Acetaminophen ([place] 10/325mg) 1 - 2 tab PO Q4HP PRN; Protocol PRN Reason: Per Pain Protocol Last Admin: 10/08/20 15:55 Dose: 2 tab Documented by: Albuterol Sulfate (Ventolin) 2.5 mg NEB Q2HP PRN PRN Reason: Shortness Of Breath [facility] Last Admin: 10/08/20 08:06 Dose: 200 mg Documented by: Aspirin (Aspirin) 81 mg CHEWED DAILY [facility] Last Admin: 10/08/20 08:06 Dose: 81 mg Documented by: Atorvastatin Calcium (Lipitor) 40 mg PO DAILY [facility] Last Admin: 10/08/20 08:06 Dose: 40 mg Documented by: Carvedilol (Coreg) 3.125 mg PO BIDCC [facility] Last Admin: 10/08/20 08:06 Dose: 3.125 mg Documented by: Cefepime HCl (Maxipime) 1 gm IV Q8H [facility]; Protocol Last Admin: 10/08/20 11:56 Dose: 1 gm Documented by: Dextrose (Dextrose 50%) 0 ml IV UD PRN PRN Reason: Hypoglycemia Diagnostic Test (Pha) (Accu-Chek) 1 each FS ACHS [facility] Last Admin: 10/08/20 16:04 Dose: 1 each Documented by: Docusate Sodium (Colace) 100 mg PO BID [facility] Last Admin: 10/08/20 08:07 Dose: Not Given Documented by: Duloxetine HCl (Cymbalta) 30 mg PO HS [facility] Last Admin: 10/07/20 20:39 Dose: 30 mg Documented by: Gabapentin (Neurontin) 400 mg PO DAILY [facility] Last Admin: 10/08/20 08:11 Dose: 400 mg Documented by: Glucose (Insta-Glucose) 15 gm PO PRN PRN PRN Reason: Hypoglycemia Guaifenesin/Codeine Phosphate (Robitussin Ac) 5 ml PO Q4HP PRN PRN Reason: Cough Heparin Sodium (Porcine) (Heparin) 5,000 unit SQ Q12 [facility] Last Admin: 10/08/20 08:07 Dose: 5,000 unit Documented by: Hydromorphone HCl (Dilaudid) 0.5 mg IV Q4HP PRN; Protocol PRN Reason: Per Pain Protocol Last Admin: 10/08/20 01:39 Dose: 0.5 mg Documented by: Insulin Glargine (Lantus) 5 unit SQ [facility] Last Admin: 10/07/20 22:10 Dose: 5 units Documented by: Insulin Human Lispro (Humalog) 0 unit SQ [facility]; Protocol Last Admin: 10/08/20 12:06 Dose: 4 units Documented by: Isosorbide Dinitrate (Isordil) 10 mg PO TID [facility] Last Admin: 10/08/20 15:53 Dose: 10 mg Documented by: Nitroglycerin (Nitrostat) 0.4 mg SL Q5M PRN PRN Reason: Chest Pain Omeprazole (Prilosec) 20 mg PO BIDAC [facility] Last Admin: 10/08/20 08:06 Dose: 20 mg Documented by: Ondansetron HCl (Zofran) 4 mg IV Q6HP PRN PRN Reason: Nausea And Vomiting Effient 10 Mg Tablet 1 dose PO DAILY [facility] Last Admin: 10/08/20 08:12 Dose: Not Given Documented by: Incruse Ellipta 62.5 (Mcg Inhaler) 1 dose INH DAILY [facility] Last Admin: 10/08/20 08:12 Dose: Not Given Documented by: Budesonide- Formoterol [ Symbicort] 160 Mcg-4 .5 Mcg/Actuation Inhaler 2 dose INH BID [facility] Last Admin: 10/08/20 08:11 Dose: Not Given Documented by: Senna (Senokot) 2 tab PO HS [facility] Last Admin: 10/07/20 20:38 Dose: 2 tab Documented by: Sertraline HCl (Zoloft) 25 mg PO DAILY [facility] Last Admin: 10/08/20 08:06 Dose: 25 mg Documented by: Sodium Chloride (Saline Flush) 10 ml IV Q8 [facility] Last Admin: 10/08/20 15:53 Dose: 10 ml Documented by: Vancomycin HCl (Vancomycin Oral Catie) 125 mg PO QID [facility]; Protocol Last Admin: 10/08/20 12:02 Dose: 125 mg Documented by: Vancomycin HCl (Vancomycin Per Pharmacy) 1 order IV UD [facility]; Protocol A/P Narrative A/P Narrative: A/P Narrative: Assessment: 75-year-old abilities, CAD, COPD, CKD stage III, DM, afib, right ankle fracture status post ORIF now with other fracture right fibula and new wounds concerning for surgical site infection, suspected osteomyelitis. Underwent redo ORIF 10/07. #Right fibular shaft fracture #Probable surgical site infection #Possible osteomyelitis Had redo ORIF 10/07, hardware removed, surgical cultures pending. On IV Vancomycin and Cefepime-ID consulted. Following blood cultures from [facility]. MRSA nasal PCR negative. Continue Aspirin and Effient (patient's supply) for recent CRISTAL (05/2020). Analgesics prn. Monitor for post operative complications. Consider ID consult. #CAD s/p CRISTAL - continue aspirin and effient as discussed with ortho, continue atorvastatin and nitro prn. #C diff colitis - continue oral vancomycin QID and appropriate contact precautions. #DM type II - Continue 5 units pm and correction humalog SSI. May need higher doses of insulin, including preprandial insulin. #HFrEF - stable, on home lasix, continue home Coreg and isosorbide dinitrate. May have been taking Spironolactone as well but will not resume now due to CKD. #CKD III - monitor renal function, avoid nephrotoxic meds. #COPD - Continue home Incruse Ellipta and Symbicort, both non-formulary, and a lbuterol nebs prn. #Paroxysmal atrial fibrillation - currently not on anticoagulation, probably bec ause of dual antiplatelet therapy. Continue home amiodarone. #Anemia - probably chronic, follow hemoglobin post op, iron studies. #Hypertension - stable blood pressure post op-holding home Chlorthalidone for now. #Depression - continue Sertraline. #Hx of bladder and lung mass - concerning for malignancy, will discuss with the patient and consider an initial workup. #DVT prophylaxis - heparin SQ Time Spent With Patient Time: Total time spent is greater than 50% in coordination of care (as documented) at patient's floor/unit and/or counseling patient: Total time spent with greater than 50% in coordination of care (as documented) at patient's floor/unit and/or counseling patient:: 15 - 24 minutes QUALITY VTE Deep Vein Thrombosis/Pulmonary Embolism Present on Admission: No
--- NOTE | 2020-10-08 17:51 | Infectious Disease Consult ---
HPI Consult Narrative cc:: CC: Chase Kahn MD Radha is a 80-year-old diabetic who originally had left ankle fracture repair August 25. She lives in [facility]. Primary care provider is Dr. Chou. She reports that she had drainage from the lateral aspect of her ankle approximately 2 to 3 weeks ago. No complaints of fever. She had another fall on October 03 that prompted readmission into hospital in [place]. She was placed on vancomycin and Rocephin for right foot cellulitis. She developed diarrhea and positive C. difficile October 05. She was transferred to [facility] on October 06. Dr. Antony completed revision fracture repair yesterday. New cultures pending. She had a CRP of 3.2 on October 06 with a negative MRSA screen. She has remained afebrile. Dr. Kahn asked for consultation to assist with treatment. He is concerned for osteomyelitis appropriately. Patient disc ontinued tobacco prior to admission. She smokes 1 pack/day. She has chronic kidney disease with today's creatinine at 1.4. She reports diabetes for several years. She does complain of right ankle pain at 8 out of 10. In addition to oral Vanco 125 mg 4 times daily for C. difficile, she is currently receiving IV vancomycin and cefepime. Constitutional Additional comments: General: She denies fevers or chills. HEENT: No headache. she did report that she left her dentures at home. No neck complaints. Pulmonary: No cough or shortness of breath. She has had pneumonia on 2 previous occasions. Cardiac: No complaints of chest pain. GI: Nursing reports 2 loose stools this afternoon. No complaints of abdominal pain. Extremities: Right ankle as above. Skin no complaints rash. PFSH PFSH All Active Problems (Updated 10/08/20 @ 18:15 by Gio Charles MD) CKD (chronic kidney disease) (Acute) Diabetes mellitus (Acute) Ankle wound (Acute) C. difficile colitis (Acute) Ankle fracture (Acute) Medical History (Updated 10/08/20 @ 18:15 by Gio Charles MD) Atrial fibrillation (Acute) CKD (chronic kidney disease) (Acute) COPD (chronic obstructive pulmonary disease) (Acute) Diabetes mellitus (Acute) HFrEF (heart failure with reduced ejection fraction) (Acute) Neuropathy (Acute) Surgical History (Updated 10/06/20 @ 20:40 by Chase Kahn MD) Ankle fracture, right (Acute) Family History (Updated 10/06/20 @ 20:41 by Chase Kahn MD) Sister Diabetes mellitus Social History (Updated 10/06/20 @ 20:42 by Chase Kahn MD) smoking status: Former smoker alcohol intake frequency: does not drink substance use type: does not use MEDS/ALLERGIES Home Medications and Allergies Home Medications Medication Instructions Recorded Confirmed Type amiodarone 200 mg PO BID 10/07/20 10/07/20 History aspirin 81 mg PO DAILY 10/07/20 10/07/20 History atorvastatin 40 mg PO HS 10/07/20 10/07/20 History budesonide-formoterol [Symbicort] 2 puff INHALATION BID 10/07/20 10/07/20 History carvedilol 3.125 mg PO BID 10/07/20 10/07/20 History chlorthalidone 25 mg PO DAILY 10/07/20 10/07/20 History dulaglutide [Trulicity] 1.5 mg SUBCUT WEEKLY 10/07/20 10/07/20 History ergocalciferol (vitamin D2) 1,250 mcg PO WEEKLY 10/07/20 10/07/20 History [Vitamin D2] furosemide 20 mg PO DAILY 10/07/20 10/07/20 History gabapentin 400 mg PO DAILY 10/07/20 10/07/20 History hydrocodone-acetaminophen 1 tab PO TID 10/07/20 10/07/20 History isosorbide dinitrate 10 mg PO TID 10/07/20 10/07/20 History prasugrel 10 mg PO DAILY 10/07/20 10/07/20 History sertraline 25 mg PO DAILY 10/07/20 10/07/20 History umeclidinium [Incruse Ellipta] 1 inh INHALATION DAILY 10/07/20 10/07/20 History Allergies Allergy/AdvReac Type Severity Reaction Status Date / Time sulfamethoxazole AdvReac Mild Vomiting Verified 10/08/20 06:43 [From Sulfamethoxazole-Trimethoprim] trimethoprim AdvReac Mild Vomiting Verified 10/08/20 06:43 [From Sulfamethoxazole-Trimethoprim] Physical Examination Vital Signs Vital signs: Temp Pulse Resp BP Pulse Ox 97.8 F 60 18 149/75 96 10/08/20 16:00 10/08/20 16:00 10/08/20 16:00 10/08/20 16:00 10/08/20 16:00 Additional Exam Additional exam: General: She is laying comfortably in bed. HEENT: She is edentulous. EOMI PERRL sclera anicteric. Lungs: Clear bilaterally without rales wheezing or rhonchi. Heart: Regular rate and rhythm without murmur. Abdomen: Soft nontender with positive bowel sounds. Extremities: Right foot is wrapped. I did not undress the wound dressing. Results Laboratory Findings CBC and BMP: 10/08/20 05:49 10/08/20 05:49 ABG, PT/INR, D-dimer: PT/INR, D-dimer PT 14.6 sec (11.9-14.5) H 10/06/20 21:35 INR 1.1 (0.9-1.1) 10/06/20 21:35 Abnormal lab findings: Abnormal Labs 10/06/20 10/06/20 10/06/20 19:50 19:50 21:35 RBC L Hgb L Hct L MCV H RDW H Plt Count H Neut % (Auto) Lymph % (Auto) Absolute Neutrophils RBC Morphology Anisocytosis Macrocytosis PT 14.6 H Sodium Potassium Carbon Dioxide Creatinine Glucose Phosphorus GGT C-Reactive Protein 3.20 H Albumin Albumin/Globulin Ratio Triglycerides 10/06/20 10/07/20 10/07/20 21:35 05:30 20:38 RBC 2.96 L Hgb 9.9 L Hct 31.9 L MCV 107.8 H RDW 15.1 H Plt Count Neut % (Auto) Lymph % (Auto) Absolute Neutrophils RBC Morphology Abnormal A Anisocytosis 1+ A Macrocytosis 1+ A PT Sodium 132 L Potassium 5.2 H Carbon Dioxide 19 L Creatinine 1.6 H 1.5 H Glucose 132 H 281 H Phosphorus 4.6 H GGT 73 H C-Reactive Protein Albumin 3.1 L Albumin/Globulin Ratio 0.9 L Triglycerides 246 H 10/08/20 10/08/20 05:49 05:49 RBC 2.65 L Hgb 8.8 L Hct 28.2 L MCV 106.4 H RDW 14.7 H Plt Count Neut % (Auto) 82.4 H Lymph % (Auto) 14.3 L Absolute Neutrophils 8.64 H RBC Morphology Anisocytosis Macrocytosis PT Sodium 131 L Potassium Carbon Dioxide 20 L Creatinine 1.4 H Glucose 140 H Phosphorus GGT C-Reactive Protein Albumin Albumin/Globulin Ratio Triglycerides Microbiology: Microbiology 10/07/20 14:19 Ankle - Right Gram Stain - Preliminary 10/07/20 14:19 Ankle - Right Wound Culture - Preliminary 10/07/20 14:15 Ankle - Right Anaerobic Culture - Preliminary 10/06/20 19:56 Nose MRSA (PCR) - Final On August 27 creatinine 1.9. October 05 C. difficile positive. October 05 creatinine 1.76. October 06 CRP 3.2. Yesterday's creatinine 1.5 today 1.4 white count 10.5 hemoglobin 8.8. MRSA screen negative. A/P Assessment and plan (1) C. difficile colitis: Status: Acute (2) Ankle fracture: Status: Acute (3) Ankle wound: Status: Acute (4) Diabetes mellitus: Status: Acute Narrative A/P Narrative: Radha is a 80-year-old woman with diabetes and chronic kidney disease stage III. She required right ankle fracture repair August 25. Postoperatively she developed lateral ankle drainage. She sustained refracture in a fall. She is now postop day 1 hardware removal and revision. I would recommend treating as if osteomyelitis present. It would be important to follow -up on culture data. Patient is currently on Vanco and cefepime. She is additionally receiving oral vancomycin 125 mg 4 times daily for C. difficile. She will require PICC line placement. I am expecting 6 weeks of IV therapy followed by a minimum of 6 weeks of oral therapy. She may require even longer therapy. I would expect that she would require shelter facility placement. I would recommend weekly labs to include CBC CMP sed rate and CRP upon discharge. If she remains in the area, I can see her in follow-up. I will be able to outline further antibiotic recommendations based on intraoperative cultures. She has been on antibiotic therapy which may limit final culture data. As long as she remains on antibiotic therapy, she will need to maintain oral vancomycin. Oral Vanco may be reduced to twice daily after 2 weeks of 4 times daily therapy. Thank you very much for allowing me me involved in Radha's consultative care. Further recommendations on choice and duration of treatment to be determined. Time Spent With Patient Time: Total time spent is greater than 50% in coordination of care (as documented) at patient's floor/unit and/or counseling patient:
[2020-10-08] MEDS: VANCOMYCIN 1,000 MG in 0.9 % SODIUM CHLORIDE 250 ML IV SCH (18:30)
[2020-10-08] MEDS: DULoxetine 30 MG CAPSULE PO SCH (20:17)
[2020-10-08] MEDS: INSULIN GLARGINE, HUMAN 1 UNIT/0.01 ML SQ SCH (20:18)
[2020-10-08] MEDS: SENNOSIDES 1 TABLET PO SCH (20:19)
[2020-10-09] MEDS: 0.9 % SODIUM CHLORIDE 10 ML SYRINGE IV SCH ×4 (05:33→20:57)
[2020-10-09] MEDS: CEFEPIME 1 GM VIAL IV SCH ×3 (05:33→21:48)
--- NOTE | 2020-10-09 06:38 | Orthopedic Progress Note ---
SUBJECTIVE Subjective Patient information: Note initiated : 10/09/20 at 6:30 am Service Date, if different from initiated Date: [] Patient: Radha Martínez 75 y/o F admitted on 10/06/20 for Ankle Fracture. Chief Complaint: [S/p I&D and ORIF of right ankle ] Patient complains of diffuse right ankle pain as expected following surgery. Otherwise, she has no complaints. Vitals are stable. She is currently being followed by hospitalist and infectious disease. Constitutional Vitals: Vital Signs Temp Pulse Resp BP Pulse Ox 97.5 F 58 L 14 134/73 93 10/09/20 04:29 10/09/20 04:29 10/09/20 04:29 10/09/20 04:29 10/09/20 04:29 Period Temp Pulse Resp BP Sys/Krishna Pulse Ox Last 24 Hr 97.4 F-98.9 F 58-66 14-18 116-153/47-95 93-98 Intake and Output 10/08/20 10/09/20 10/09/20 21:59 05:59 13:59 Intake Total 1130 250 Output Total 102 Balance 1028 250 Weight 169 lb 8 oz Intake & Output: Intake & Output 10/08/20 10/09/20 10/09/20 21:59 05:59 13:59 Intake Total 1130 250 Output Total 102 Balance 1028 250 Weight 169 lb 8 oz Intake: IV 250 Vancomycin 1,000 mg In Sodium 250 Chloride 0.9% 250 ml @ 250 mls/ hr IV Q24H [facility] Rx#:[id number] Oral 880 250 Output: Void Amount 100 # of times incontinent of urine 2 Other: Meal Dinner Percent of Meal Consumed 100% Feeding Ability Assist with Tray Set Up Urine Color Straw Urine Odor Normal Stool Size Small Stool Color Brown Stool Consistency Loose # Voids 1 # Bowel Movements 1 # of times incontinent of 1 Bowels Head Head exam: Present atraumatic, normal inspection and normocephalic Extremities Exam Extremities exam: Present calf tenderness (negative bilaterally), Mary's sign (negative bilaterally) and neurovascular intact Additional comments: Right ankle: Inspection reveals a long leg splint which is intact w/o any signs of wound drainage. ROM is limited due to splinting. There is no significant tenderness to palpation except at surgical sight. RLE is NVI. Neurological Exam Neurological exam: Present alert and oriented X3 Psychiatric Psychiatric exam: Present normal affect and normal mood OBJ DATA Labs CBC & Chem 7: 10/08/20 05:49 10/08/20 05:49 Labs: Abnormal Lab Results 10/08/20 10/08/20 10/07/20 05:49 05:49 20:38 RBC 2.65 L Hgb 8.8 L Hct 28.2 L MCV 106.4 H RDW 14.7 H Plt Count Neut % (Auto) 82.4 H Lymph % (Auto) 14.3 L Absolute Neutrophils 8.64 H RBC Morphology Anisocytosis Macrocytosis PT Sodium 131 L 132 L Potassium 5.2 H Carbon Dioxide 20 L 19 L Creatinine 1.4 H 1.5 H Glucose 140 H 281 H Phosphorus GGT C-Reactive Protein Albumin Albumin/Globulin Ratio Triglycerides 10/07/20 10/06/20 10/06/20 05:30 21:35 21:35 RBC 2.96 L Hgb 9.9 L Hct 31.9 L MCV 107.8 H RDW 15.1 H Plt Count Neut % (Auto) Lymph % (Auto) Absolute Neutrophils RBC Morphology Abnormal A Anisocytosis 1+ A Macrocytosis 1+ A PT 14.6 H Sodium Potassium Carbon Dioxide Creatinine 1.6 H Glucose 132 H Phosphorus 4.6 H GGT 73 H C-Reactive Protein Albumin 3.1 L Albumin/Globulin Ratio 0.9 L Triglycerides 246 H 10/06/20 10/06/20 19:50 19:50 RBC L Hgb L Hct L MCV H RDW H Plt Count H Neut % (Auto) Lymph % (Auto) Absolute Neutrophils RBC Morphology Anisocytosis Macrocytosis PT Sodium Potassium Carbon Dioxide Creatinine Glucose Phosphorus GGT C-Reactive Protein 3.20 H Albumin Albumin/Globulin Ratio Triglycerides Meds: Medications Acetaminophen (Tylenol) 650 mg PO Q6HP PRN; Protocol PRN Reason: Per Pain Protocol/Fever > 101 Hydrocodone Bitart/Acetaminophen ([place] 10/325mg) 1 - 2 tab PO Q4HP PRN; Protocol PRN Reason: Per Pain Protocol Last Admin: 10/08/20 23:02 Dose: 2 tab Documented by: Albuterol Sulfate (Ventolin) 2.5 mg NEB Q2HP PRN PRN Reason: Shortness Of Breath [facility] Admin: 10/08/20 17:45 Dose: 200 mg Documented by: Aspirin (Aspirin) 81 mg CHEWED DAILY [facility] Last Admin: 10/08/20 08:06 Dose: 81 mg Documented by: Atorvastatin Calcium (Lipitor) 40 mg PO DAILY [facility] Last Admin: 10/08/20 08:06 Dose: 40 mg Documented by: Carvedilol (Coreg) 3.125 mg PO BIDCC [facility] Last Admin: 10/08/20 17:44 Dose: 3.125 mg Documented by: Cefepime HCl (Maxipime) 1 gm IV Q8H [facility]; Protocol Last Admin: 10/09/20 05:33 Dose: 1 gm Documented by: Dextrose (Dextrose 50%) 0 ml IV UD PRN PRN Reason: Hypoglycemia Diagnostic Test (Pha) (Accu-Chek) 1 each FS ACHS [facility] Last Admin: 10/08/20 20:17 Dose: 1 each Documented by: Docusate Sodium (Colace) 100 mg PO BID [facility] Last Admin: 10/08/20 20:18 Dose: Not Given Documented by: Duloxetine HCl (Cymbalta) 30 mg PO HS [facility] Last Admin: 10/08/20 20:17 Dose: 30 mg Documented by: Furosemide (Lasix) 20 mg PO DAILY [facility] Gabapentin (Neurontin) 400 mg PO DAILY [facility] Last Admin: 10/08/20 08:11 Dose: 400 mg Documented by: Glucose (Insta-Glucose) 15 gm PO PRN PRN PRN Reason: Hypoglycemia Guaifenesin/Codeine Phosphate (Robitussin Ac) 5 ml PO Q4HP PRN PRN Reason: Cough Heparin Sodium (Porcine) (Heparin) 5,000 unit SQ Q12 [facility] Last Admin: 10/08/20 20:18 Dose: 5,000 unit Documented by: Hydromorphone HCl (Dilaudid) 0.5 mg IV Q4HP PRN; Protocol PRN Reason: Per Pain Protocol Last Admin: 10/08/20 01:39 Dose: 0.5 mg Documented by: Vancomycin HCl 1,000 mg/ (Sodium Chloride) 250 mls @ 250 mls/hr IV Q24H [facility] Last Infusion: 10/08/20 19:45 Dose: Infused Documented by: Insulin Glargine (Lantus) 5 unit SQ [facility] Last Admin: 10/08/20 20:18 Dose: 5 units Documented by: Insulin Human Lispro (Humalog) 0 unit SQ ACHS [facility]; Protocol Last Admin: 10/08/20 20:17 Dose: 3 units Documented by: Isosorbide Dinitrate (Isordil) 10 mg PO TID [facility] Last Admin: 10/08/20 20:18 Dose: 10 mg Documented by: Nitroglycerin (Nitrostat) 0.4 mg SL Q5M PRN PRN Reason: Chest Pain Omeprazole (Prilosec) 20 mg PO BIDAC [facility] Last Admin: 10/08/20 17:44 Dose: 20 mg Documented by: Ondansetron HCl (Zofran) 4 mg IV Q6HP PRN PRN Reason: Nausea And Vomiting Effient 10 Mg Tablet 1 dose PO DAILY [facility] Last Admin: 10/08/20 08:12 Dose: Not Given Documented by: Incruse Ellipta 62.5 (Mcg Inhaler) 1 dose INH DAILY [facility] Last Admin: 10/08/20 08:12 Dose: Not Given Documented by: Budesonide- Formoterol [ Symbicort] 160 Mcg-4 .5 Mcg/Actuation Inhaler 2 dose INH BID [facility] Last Admin: 10/08/20 20:19 Dose: Not Given Documented by: Senna (Senokot) 2 tab PO HS [facility] Last Admin: 10/08/20 20:19 Dose: Not Given Documented by: Sertraline HCl (Zoloft) 25 mg PO DAILY [facility] Last Admin: 10/08/20 08:06 Dose: 25 mg Documented by: Sodium Chloride (Saline Flush) 10 ml IV Q8 [facility] Last Admin: 10/09/20 05:33 Dose: 10 ml Documented by: Vancomycin HCl (Vancomycin Oral Catie) 125 mg PO QID [facility]; Protocol Last Admin: 10/08/20 20:17 Dose: 125 mg Documented by: Vancomycin HCl (Vancomycin Per Pharmacy) 1 order IV UD [facility]; Protocol A/P Assessment and plan (1) Ankle fracture: Assessment and plan: NWB on RLE X8 weeks. Remain in long leg splint. Continue IV abx X6 weeks per Dr. Charles. Abx pending culture results. Likely discharge to swing bed in [facility] where pt currently resides. Follow- up with [facility] in 2 weeks for long leg cast and suture removal. Status: Acute (2) C. difficile colitis: Status: Acute Time Spent With Patient Time: Total time spent is greater than 50% in coordination of care (as documented) at patient's floor/unit and/or counseling patient:
[2020-10-09] MEDS: HYDROcodone/APAP 10/325MG TABLET PO PRN ×3 (07:21→19:35)
[2020-10-09] MEDS: CARVEDILOL 3.125 MG TABLET PO SCH ×2 (07:21→18:00)
[2020-10-09] MEDS: INSULIN LISPRO 1 UNIT/0.01 ML UNIT SQ SCH ×4 (07:21→20:56)
[2020-10-09] MEDS: AMIODARONE HCL 200 MG TABLET PO SCH ×2 (07:21→18:00)
[2020-10-09] MEDS: OMEPRAZOLE 20 MG CAPSULE PO SCH ×2 (07:21→18:00)
[2020-10-09 07:27] LABS: Basophils # (Auto) 0.05 K/mcL (0.00-0.20); Basophils % (Auto) 0.5 % (0.0-2.0); Eosinophils # (Auto) 0.23 K/mcL (0.00-0.70); Eosinophils % (Auto) 2.3 % (0.0-7.0); Hematocrit 24.4 % (36.0-48.0); Hemoglobin 7.8 g/dL (12.0-15.0); Lymphocytes # (Auto) 2.75 K/mcL (1.50-4.80); Lymphocytes % (Auto) 27.6 % (15.0-49.0); Mean Cell Volume 106.6 fL (80.0-100.0); Mean Platelet Volume 9.3 fL (7.4-10.4); Monocytes # (Auto) 0.46 K/mcL (0.10-0.90); Monocytes % (Auto) 4.6 % (1.0-12.0); Platelet Count 456 K/mcL (140-440); RBC 2.29 M/mcL (4.00-5.20); Red Cell Distribution Width 15.1 % (11.5-14.5)
[2020-10-09 07:37] LABS: Blood Urea Nitrogen 18 mg/dL (8-23); Carbon Dioxide 23 mmol/L (22-30); Chloride 103 mmol/L (96-108); Glomerular Filtration Rate 41; Glucose 108 mg/dL (70-105)
[2020-10-09] MEDS: FUROSEMIDE 20 MG TABLET PO SCH (09:02)
[2020-10-09] MEDS: SERTRALINE 50 MG TABLET PO SCH (09:02)
[2020-10-09] MEDS: HEPARIN 5,000 UNIT/ML VIAL SQ SCH ×2 (09:02→20:41)
[2020-10-09] MEDS: ATORVASTATIN 40 MG TABLET PO SCH (09:02)
[2020-10-09] MEDS: GABAPENTIN 400 MG CAPSULE PO SCH (09:03)
[2020-10-09] MEDS: INCRUSE ELLIPTA 62.5 MCG INH SCH (09:03)
[2020-10-09] MEDS: FORMOTEROL INH SCH ×2 (09:03→20:27)
[2020-10-09] MEDS: ASPIRIN 81 MG TAB.CHEW CHEWED SCH (09:03)
[2020-10-09] MEDS: BUDESONIDE INH SCH ×2 (09:03→20:27)
[2020-10-09] MEDS: EFFIENT 10 MG PO SCH (09:03)
[2020-10-09] MEDS: VANCOMYCIN 1,000 MG in 0.9 % SODIUM CHLORIDE 250 ML IV SCH (09:03)
[2020-10-09] MEDS: ISOSORBIDE DINITRATE 10 MG TABLET PO SCH ×3 (09:06→20:42)
[2020-10-09] MEDS: VANCOMYCIN ORAL SOL 1,000 MG/10 ML BOTTLE PO SCH ×4 (09:06→21:47)
[2020-10-09] MEDS: DOCUSATE SODIUM 100 MG CAPSULE PO SCH ×2 (09:07→20:26)
[2020-10-09] MEDS ORDERED: 0.9 % SODIUM CHLORIDE 10 ML SYRINGE IV PRN (10:47)
--- NOTE | 2020-10-09 15:50 | Internal Med Progress Note ---
SUBJECTIVE Subjective Patient information: Note initiated : 10/09/20 at 3:49 pm Service Date, if different from initiated Date: [] Patient: Radha Martínez 75 y/o F admitted on 10/06/20 for Ankle Fracture. Chief Complaint: [] Interval history: Ms. 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 The patient was admitted to the OSH on 10/03, managed with IV antibiotics and after discussing the findings with Dr. Antony who performed the initial surgery at [facility], she was transferred to [facility] due to a staff shortage at [facility]. The hospital stay at [facility] was complicated by C diff colitis which was diagnosed on 10/05 and treated with oral Vancomycin. Per the available documents the hospital stay was otherwise uncomplicated. She arrived in stable condition and underwent surgery 10/07 with redo ORIF and removal of hardware. 10/07-ORIF today with revision ORIF, I&D, and removal of hardware, syndesomosis repair, cultures taken and pending. 10/08-stable, pain controlled with prn norco, resumed home lasix. ID consulted- on Vancomycin IV and Cefepime. 10/09-hgb tending down, otherwise no issues, PICC ordered. Constitutional Vitals: Vital Signs Temp Pulse Resp BP Pulse Ox 96.9 F L 64 20 144/71 93 10/09/20 07:24 10/09/20 07:24 10/09/20 07:46 10/09/20 07:24 10/09/20 07:46 Period Temp Pulse Resp BP Sys/Krishna Pulse Ox Last 24 Hr 96.9 F-98.9 F 58-65 14-20 121-153/47-76 93-96 Intake and Output 10/09/20 10/09/20 10/09/20 05:59 13:59 21:59 Intake Total 250 480 Output Total 1 Balance 250 479 Intake & Output: Intake & Output 10/09/20 10/09/20 10/09/20 05:59 13:59 21:59 Intake Total 250 480 Output Total 1 Balance 250 479 Intake: Oral 250 480 Output: # of times incontinent of urine 1 Other: Stool Size Moderate Stool Color Brown Green Stool Consistency Soft # Voids 1 # of times incontinent of 1 Bowels Head Head exam: Present atraumatic and normal inspection Eye Eye exam: Present normal appearance ENT ENT exam: Present mucous membranes moist, normal exam and normal external ear exam Neck Neck exam: Present normal inspection Respiratory Respiratory exam: Present normal respiratory exam Cardiovascular Cardiovascular exam: Present normal rate and rhythm GI/Abdominal GI/Abdominal exam: Present normal bowel sounds Extremities Exam Additional comments: right foot in cast Back Exam Back exam: Present normal inspection Neurological Exam Neurological exam: Present alert and oriented X3 Skin Skin exam: Present intact and warm OBJ DATA Labs CBC & Chem 7: 10/09/20 06:02 10/09/20 06:01 Labs: Abnormal Lab Results 10/09/20 10/09/20 10/08/20 06:02 06:01 05:49 RBC 2.29 L Hgb 7.8 L Hct 24.4 L MCV 106.6 H MCH 34.1 H RDW 15.1 H Plt Count 456 H Neut % (Auto) Lymph % (Auto) Absolute Neutrophils RBC Morphology Anisocytosis Macrocytosis PT Sodium 131 L Potassium Carbon Dioxide 20 L Creatinine 1.3 H 1.4 H Glucose 108 H 140 H Phosphorus GGT C-Reactive Protein Albumin Albumin/Globulin Ratio Triglycerides 10/08/20 10/07/20 10/07/20 05:49 20:38 05:30 RBC 2.65 L Hgb 8.8 L Hct 28.2 L MCV 106.4 H MCH RDW 14.7 H Plt Count Neut % (Auto) 82.4 H Lymph % (Auto) 14.3 L Absolute Neutrophils 8.64 H RBC Morphology Anisocytosis Macrocytosis PT Sodium 132 L Potassium 5.2 H Carbon Dioxide 19 L Creatinine 1.5 H 1.6 H Glucose 281 H 132 H Phosphorus 4.6 H GGT 73 H C-Reactive Protein Albumin 3.1 L Albumin/Globulin Ratio 0.9 L Triglycerides 246 H 10/06/20 10/06/20 10/06/20 21:35 21:35 19:50 RBC 2.96 L Hgb 9.9 L Hct 31.9 L MCV 107.8 H MCH RDW 15.1 H Plt Count Neut % (Auto) Lymph % (Auto) Absolute Neutrophils RBC Morphology Abnormal A Anisocytosis 1+ A Macrocytosis 1+ A PT 14.6 H Sodium Potassium Carbon Dioxide Creatinine Glucose Phosphorus GGT C-Reactive Protein 3.20 H Albumin Albumin/Globulin Ratio Triglycerides 10/06/20 19:50 RBC L Hgb L Hct L MCV H MCH RDW H Plt Count H Neut % (Auto) Lymph % (Auto) Absolute Neutrophils RBC Morphology Anisocytosis Macrocytosis PT Sodium Potassium Carbon Dioxide Creatinine Glucose Phosphorus GGT C-Reactive Protein Albumin Albumin/Globulin Ratio Triglycerides Meds: Medications Acetaminophen (Tylenol) 650 mg PO Q6HP PRN; Protocol PRN Reason: Per Pain Protocol/Fever > 101 Hydrocodone Bitart/Acetaminophen ([place] 10/325mg) 1 - 2 tab PO Q4HP PRN; Protocol PRN Reason: Per Pain Protocol Last Admin: 10/09/20 08:00 Dose: 1 tab Documented by: Albuterol Sulfate (Ventolin) 2.5 mg NEB Q2HP PRN PRN Reason: Shortness Of Breath [facility] Last Admin: 10/09/20 07:21 Dose: 200 mg Documented by: Aspirin (Aspirin) 81 mg CHEWED DAILY [facility] Last Admin: 10/09/20 09:03 Dose: 81 mg Documented by: Atorvastatin Calcium (Lipitor) 40 mg PO DAILY [facility] Last Admin: 10/09/20 09:02 Dose: 40 mg Documented by: Carvedilol (Coreg) 3.125 mg PO BIDCC [facility] Last Admin: 10/09/20 07:21 Dose: 3.125 mg Documented by: Cefepime HCl (Maxipime) 1 gm IV Q8H [facility]; Protocol Last Admin: 10/09/20 14:35 Dose: 1 gm Documented by: Dextrose (Dextrose 50%) 0 ml IV UD PRN PRN Reason: Hypoglycemia Diagnostic Test (Pha) (Accu-Chek) 1 each FS ACHS [facility] Last Admin: 10/09/20 12:21 Dose: 1 each Documented by: Docusate Sodium (Colace) 100 mg PO BID [facility] Last Admin: 10/09/20 09:07 Dose: Not Given Documented by: Duloxetine HCl (Cymbalta) 30 mg PO HS [facility] Last Admin: 10/08/20 20:17 Dose: 30 mg Documented by: Furosemide (Lasix) 20 mg PO DAILY [facility] Last Admin: 10/09/20 09:02 Dose: 20 mg Documented by: Gabapentin (Neurontin) 400 mg PO DAILY [facility] Last Admin: 10/09/20 09:03 Dose: 400 mg Documented by: Glucose (Insta-Glucose) 15 gm PO PRN PRN PRN Reason: Hypoglycemia Guaifenesin/Codeine Phosphate (Robitussin Ac) 5 ml PO Q4HP PRN PRN Reason: Cough Heparin Sodium (Porcine) (Heparin) 5,000 unit SQ Q12 [facility] Last Admin: 10/09/20 09:02 Dose: 5,000 unit Documented by: Heparin Sodium (Porcine) (Heparin 10 Units/Ml Flush) 2 ml IV Q12 [facility] Hydromorphone HCl (Dilaudid) 0.5 mg IV Q4HP PRN; Protocol PRN Reason: Per Pain Protocol Last Admin: 10/08/20 01:39 Dose: 0.5 mg Documented by: Vancomycin HCl 1,000 mg/ (Sodium Chloride) 250 mls @ 250 mls/hr IV Q24H [facility] Last Admin: 10/09/20 09:03 Dose: 250 mls/hr Documented by: Insulin Glargine (Lantus) 5 unit SQ [facility] Last Admin: 10/08/20 20:18 Dose: 5 units Documented by: Insulin Human Lispro (Humalog) 0 unit SQ [facility]; Protocol Last Admin: 10/09/20 12:27 Dose: 1 units Documented by: Isosorbide Dinitrate (Isordil) 10 mg PO TID [facility] Last Admin: 10/09/20 14:36 Dose: 10 mg Documented by: Nitroglycerin (Nitrostat) 0.4 mg SL Q5M PRN PRN Reason: Chest Pain Omeprazole (Prilosec) 20 mg PO BIDAC [facility] Last Admin: 10/09/20 07:21 Dose: 20 mg Documented by: Ondansetron HCl (Zofran) 4 mg IV Q6HP PRN PRN Reason: Nausea And Vomiting Effient 10 Mg Tablet 1 dose PO DAILY [facility] Last Admin: 10/09/20 09:03 Dose: Not Given Documented by: Incruse Ellipta 62.5 (Mcg Inhaler) 1 dose INH DAILY [facility] Last Admin: 10/09/20 09:03 Dose: Not Given Documented by: Budesonide- Formoterol [ Symbicort] 160 Mcg-4 .5 Mcg/Actuation Inhaler 2 dose INH BID [facility] Last Admin: 10/09/20 09:03 Dose: Not Given Documented by: Senna (Senokot) 2 tab PO HS [facility] Last Admin: 10/08/20 20:19 Dose: Not Given Documented by: Sertraline HCl (Zoloft) 25 mg PO DAILY [facility] Last Admin: 10/09/20 09:02 Dose: 25 mg Documented by: Sodium Chloride (Saline Flush) 10 ml IV Q8 [facility] Last Admin: 10/09/20 14:35 Dose: 10 ml Documented by: Sodium Chloride (Saline Flush) 10 ml IV UD PRN PRN Reason: FLUSH Sodium Chloride (Saline Flush) 10 ml IV Q12 [facility] Vancomycin HCl (Vancomycin Oral Catie) 125 mg PO QID [facility]; Protocol Last Admin: 10/09/20 12:22 Dose: 125 mg Documented by: Vancomycin HCl (Vancomycin Per Pharmacy) 1 order IV UD [facility]; Protocol A/P Narrative A/P Narrative: A/P Narrative: Assessment: 75-year-old abilities, CAD, COPD, CKD stage III, DM, afib, right ankle fracture status post ORIF now with other fracture right fibula and new wounds concerning for surgical site infection, suspected osteomyelitis. Underwent redo ORIF 10/07. #Right fibular shaft fracture #Probable surgical site infection #Presumed osteomyelitis Had redo ORIF 10/07, hardware removed, surgical cultures pending. On IV Vancomycin and Cefepime. ID consulted-plan for 6 weeks IV abx treatment. Will need weekly labs while on IV abx. Following blood cultures from [facility]. MRSA nasal PCR negative. PICC placed. Analgesics prn. Monitor for post operative complications-no unexpected changes so far. PT/OT. #Acute on chronic anemia - no evidence of active bleeding, following hemoglobin post op, iron studies not consistent with iron deficiency. #CAD s/p CRISTAL to OM - CRISTAL was placed 05/2020, continued on aspirin and effient perioperatively. Continue atorvastatin and nitro prn. #C diff colitis - continue oral vancomycin QID and appropriate contact precautions. #DM type II - Continue 5 units pm and correction humalog SSI. #HFrEF - stable, on home lasix, continue home Coreg and isosorbide dinitrate. #CKD III - stable, monitor renal function and avoid nephrotoxic meds. #COPD - Continue home Incruse Ellipta and Symbicort and albuterol nebs prn. #Paroxysmal atrial fibrillation - stable, currently not on anticoagulation, probably because of dual antiplatelet therapy. Continue home amiodarone. #Hypertension - on Coreg and isosorbide dinitrate for HFrEF, holding home Chlorthalidone for now and would avoid it indefinietly with CKD. #Depression - continue Sertraline. #Hx of bladder and lung mass - details unclear however concerning for malignancy, recommend outpatient workup. #DVT prophylaxis - heparin SQ Time Spent With Patient Time: Total time spent is greater than 50% in coordination of care (as documented) at patient's floor/unit and/or counseling patient: QUALITY VTE Deep Vein Thrombosis/Pulmonary Embolism Present on Admission: No
--- NOTE | 2020-10-09 15:56 | XRay Report ---
CLINICAL INFORMATION: PICC PLACEMENT COMPARISON: 09/24/2020 FINDINGS: Left PICC line tip is distally placed overlying the tricuspid valve plane. The heart is moderately enlarged but stable. Moderate hiatal hernia again noted. Remaining mediastinum and pulmonary vessels are normal. Mild bibasilar atelectasis appreciated. No effusions IMPRESSION: No acute disease. PICC line tip overlies the tricuspid valve plane. Suggest retracting the line 9 cm Interpreted and Authenticated by: Larry Shaikh 10/09/20
[2020-10-09] MEDS: HYDROmorphone 0.5 MG/0.5 ML SYRINGE IV PRN (16:30)
[2020-10-09] MEDS ORDERED: 0.9 % SODIUM CHLORIDE 250 ML IV SCH (17:15)
[2020-10-09] MEDS: SENNOSIDES 1 TABLET PO SCH (20:27)
[2020-10-09] MEDS: DULoxetine 30 MG CAPSULE PO SCH (20:41)
[2020-10-09] MEDS: INSULIN GLARGINE, HUMAN 1 UNIT/0.01 ML SQ SCH (20:56)
[2020-10-10] MEDS: HYDROcodone/APAP 10/325MG TABLET PO PRN ×5 (01:17→21:09)
[2020-10-10] MEDS: 0.9 % SODIUM CHLORIDE 10 ML SYRINGE IV SCH ×5 (05:59→21:27)
[2020-10-10] MEDS: CEFEPIME 1 GM VIAL IV SCH ×3 (05:59→21:08)
[2020-10-10 06:56] LABS: Basophils # (Auto) 0.04 K/mcL (0.00-0.20); Basophils % (Auto) 0.4 % (0.0-2.0); Eosinophils # (Auto) 0.29 K/mcL (0.00-0.70); Hematocrit 26.9 % (36.0-48.0); Hemoglobin 8.7 g/dL (12.0-15.0); Lymphocytes # (Auto) 2.05 K/mcL (1.50-4.80); Lymphocytes % (Auto) 21.4 % (15.0-49.0); Mean Cell Volume 102.7 fL (80.0-100.0); Mean Corpuscular HGB Conc 32.3 g/dL (31.0-36.0); Mean Platelet Volume 8.8 fL (7.4-10.4); Monocytes % (Auto) 6.3 % (1.0-12.0); Neutrophils % (Auto) 68.9 % (38.0-78.0); Platelet Count 339 K/mcL (140-440); RBC 2.62 M/mcL (4.00-5.20); Red Cell Distribution Width 16.7 % (11.5-14.5); WBC 9.6 K/mcL (4.5-11.0)
[2020-10-10] MEDS: INSULIN LISPRO 1 UNIT/0.01 ML UNIT SQ SCH ×4 (06:59→21:26)
[2020-10-10 07:47] LABS: Blood Urea Nitrogen 18 mg/dL (8-23); Calcium 8.8 mg/dL (8.6-10.4); Carbon Dioxide 23 mmol/L (22-30); Chloride 104 mmol/L (96-108); Glomerular Filtration Rate 41; Glucose 98 mg/dL (70-105)
[2020-10-10] MEDS: OMEPRAZOLE 20 MG CAPSULE PO SCH ×2 (08:21→17:38)
[2020-10-10] MEDS: ATORVASTATIN 40 MG TABLET PO SCH (08:22)
[2020-10-10] MEDS: CARVEDILOL 3.125 MG TABLET PO SCH ×2 (08:22→17:38)
[2020-10-10] MEDS: AMIODARONE HCL 200 MG TABLET PO SCH ×2 (08:22→17:38)
[2020-10-10] MEDS: SERTRALINE 50 MG TABLET PO SCH (08:23)
[2020-10-10] MEDS: FUROSEMIDE 20 MG TABLET PO SCH (08:23)
[2020-10-10] MEDS: DOCUSATE SODIUM 100 MG CAPSULE PO SCH ×2 (08:24→21:26)
[2020-10-10] MEDS: HEPARIN 5,000 UNIT/ML VIAL SQ SCH ×2 (08:24→21:08)
[2020-10-10] MEDS: GABAPENTIN 400 MG CAPSULE PO SCH (08:24)
[2020-10-10] MEDS: ASPIRIN 81 MG TAB.CHEW CHEWED SCH (08:24)
[2020-10-10] MEDS: VANCOMYCIN ORAL SOL 1,000 MG/10 ML BOTTLE PO SCH ×4 (08:25→21:08)
[2020-10-10] MEDS: EFFIENT 10 MG PO SCH (08:45)
[2020-10-10] MEDS: FORMOTEROL INH SCH ×2 (08:45→21:27)
[2020-10-10] MEDS: BUDESONIDE INH SCH ×2 (08:45→21:27)
[2020-10-10] MEDS: INCRUSE ELLIPTA 62.5 MCG INH SCH (08:46)
[2020-10-10] MEDS: ISOSORBIDE DINITRATE 10 MG TABLET PO SCH ×3 (09:05→21:55)
[2020-10-10] MEDS: VANCOMYCIN 1,000 MG in 0.9 % SODIUM CHLORIDE 250 ML IV SCH (12:39)
--- NOTE | 2020-10-10 13:12 | Internal Med Progress Note ---
SUBJECTIVE Subjective Patient information: Note initiated : 10/10/20 at 1:07 pm Service Date, if different from initiated Date: [] Patient: Radha Martínez 75 y/o F admitted on 10/06/20 for Ankle Fracture. Chief Complaint: [] Interval history: Ms. 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 for a new displaced right fibular shaft fracture (at the site of recently placed hardware) as well as draining foot and ankle wounds concerning for an infected surgical site and possible underlying osteomyelitis. The patient was admitted to the OSH on 10/03, managed with IV antibiotics and after discussing the findings with Dr. Antony who performed the initial surgery at [facility], she was transferred to [facility] due to a staff shortage at [facility]. The hospital stay at [facility] was complicated by C diff colitis which was diagnosed on 10/05 and treated with oral Vancomycin. Per the available documents the hospital stay was otherwise uncomplicated. She arrived in stable condition and underwent surgery 10/07 with redo ORIF and removal of hardware. 10/07-ORIF today with revision ORIF, I&D, and removal of hardware, syndesomosis repair, cultures taken and pending. 10/08-stable, pain controlled with prn norco, resumed home lasix. ID consulted- on Vancomycin IV and Cefepime. 10/09-hgb trending down, received 1 unit RBC. PICC placed. 10/10-discharge planning for SNF. Constitutional Vitals: Vital Signs Temp Pulse Resp BP Pulse Ox 97.7 F 64 14 164/82 92 10/10/20 07:02 10/10/20 07:02 10/10/20 07:02 10/10/20 07:02 10/10/20 07:02 Period Temp Pulse Resp BP Sys/Krishna Pulse Ox Last 24 Hr 97.2 F-98.0 F 60-67 14-20 109-164/55-82 91-97 Intake and Output 10/09/20 10/10/20 10/10/20 21:59 05:59 13:59 Intake Total 1860 0 120 Output Total 3 1 Balance 1857 0 119 Weight 74.446 kg Intake & Output: Intake & Output 10/09/20 10/10/20 10/10/20 21:59 05:59 13:59 Intake Total 1860 0 120 Output Total 3 1 Balance 1857 0 119 Weight 74.446 kg Intake: Oral 1500 0 120 Blood Product 360 Output: # of times incontinent of urine 3 1 Other: Meal Lunch Breakfast Percent of Meal Consumed 100% 100% Feeding Ability Assist with Tray Set Up Independent Stool Size Moderate Moderate Moderate Stool Color Brown Brown Brown Stool Consistency Liquid Loose Soft Loose # Voids 1 # Bowel Movements 1 # of times incontinent of 1 1 1 Bowels Head Head exam: Present atraumatic and normal inspection Eye Eye exam: Present normal appearance ENT ENT exam: Present mucous membranes moist, normal exam and normal external ear exam Neck Neck exam: Present normal inspection Respiratory Respiratory exam: Present normal respiratory exam Cardiovascular Cardiovascular exam: Present normal rate and rhythm GI/Abdominal GI/Abdominal exam: Present normal bowel sounds Extremities Exam Additional comments: Right foot wrapped in clean bandages. Back Exam Back exam: Present normal inspection Neurological Exam Neurological exam: Present alert and oriented X3 Skin Skin exam: Present intact and warm OBJ DATA Labs CBC & Chem 7: 10/10/20 06:08 10/10/20 06:07 Labs: Abnormal Lab Results 10/10/20 10/10/20 10/10/20 08:29 06:08 06:07 RBC 2.62 L Hgb 8.7 L Hct 26.9 L MCV 102.7 H MCH RDW 16.7 H Plt Count Neut % (Auto) Lymph % (Auto) Absolute Neutrophils Sodium Potassium Carbon Dioxide Creatinine 1.3 H Glucose Vancomycin Trough 20.1 H* 10/09/20 10/09/20 10/09/20 23:20 15:58 06:02 RBC 2.29 L Hgb 8.2 L 7.0 L* 7.8 L Hct 24.4 L MCV 106.6 H MCH 34.1 H RDW 15.1 H Plt Count 456 H Neut % (Auto) Lymph % (Auto) Absolute Neutrophils Sodium Potassium Carbon Dioxide Creatinine Glucose Vancomycin Trough 10/09/20 10/08/20 10/08/20 06:01 05:49 05:49 RBC 2.65 L Hgb 8.8 L Hct 28.2 L MCV 106.4 H MCH RDW 14.7 H Plt Count Neut % (Auto) 82.4 H Lymph % (Auto) 14.3 L Absolute Neutrophils 8.64 H Sodium 131 L Potassium Carbon Dioxide 20 L Creatinine 1.3 H 1.4 H Glucose 108 H 140 H Vancomycin Trough 10/07/20 20:38 RBC Hgb Hct MCV MCH RDW Plt Count Neut % (Auto) Lymph % (Auto) Absolute Neutrophils Sodium 132 L Potassium 5.2 H Carbon Dioxide 19 L Creatinine 1.5 H Glucose 281 H Vancomycin Trough Meds: Medications Acetaminophen (Tylenol) 650 mg PO Q6HP PRN; Protocol PRN Reason: Per Pain Protocol/Fever > 101 Hydrocodone Bitart/Acetaminophen ([place] 10/325mg) 1 - 2 tab PO Q4HP PRN; Protoc ol PRN Reason: Per Pain Protocol Last Admin: 10/10/20 09:04 Dose: 1 tab Documented by: Albuterol Sulfate (Ventolin) 2.5 mg NEB Q2HP PRN PRN Reason: Shortness Of Breath [facility]) [facility] Last Admin: 10/10/20 08:22 Dose: 200 mg Documented by: Aspirin (Aspirin) 81 mg CHEWED DAILY [facility] Last Admin: 10/10/20 08:24 Dose: 81 mg Documented by: Atorvastatin Calcium (Lipitor) 40 mg PO DAILY [facility] Last Admin: 10/10/20 08:22 Dose: 40 mg Documented by: Carvedil[facility] ([facility]g) [facility] Last Admin: 10/10/20 08:22 Dose: 3.125 mg Documented by: Cefepime HCl (Maxipime) 1 gm IV Q8H [facility]; Protocol Last Admin: 10/10/20 05:59 Dose: 1 gm Documented by: Dextrose (Dextrose 50%) 0 ml IV UD PRN PRN Reason: Hypoglycemia Diagnostic Test (Pha) (Accu-Chek) 1 each FS ACHS [facility] Last Admin: 10/10/20 12:23 Dose: 1 each Documented by: Docusate Sodium (Colace) 100 mg PO BID [facility] Last Admin: 10/10/20 08:24 Dose: Not Given Documented by: Duloxetine HCl (Cymbalta) 30 mg PO HS [facility] Last Admin: 10/09/20 20:41 Dose: 30 mg Documented by: Furosemide (Lasix) 20 mg PO DAILY [facility] Last Admin: 10/10/20 08:23 Dose: 20 mg Documented by: Gabapentin (Neurontin) 400 mg PO DAILY [facility] Last Admin: 10/10/20 08:24 Dose: 400 mg Documented by: Glucose (Insta-Glucose) 15 gm PO PRN PRN PRN Reason: Hypoglycemia Guaifenesin/Codeine Phosphate (Robitussin Ac) 5 ml PO Q4HP PRN PRN Reason: Cough Heparin Sodium (Porcine) (Heparin) 5,000 unit SQ Q12 [facility] Last Admin: 10/10/20 08:24 Dose: 5,000 unit Documented by: Heparin Sodium (Porcine) (Heparin 10 Units/Ml Flush) 2 ml IV Q12 [facility] Last Admin: 10/10/20 08:25 Dose: 2 ml Documented by: Hydromorphone HCl (Dilaudid) 0.5 mg IV Q4HP PRN; Protocol PRN Reason: Per Pain Protocol Last Admin: 10/09/20 16:30 Dose: 0.5 mg Documented by: Insulin Glargine (Lantus) 5 unit SQ [facility] Last Admin: 10/09/20 20:56 Dose: 5 units Documented by: Insulin Human Lispro (Humalog) 0 unit SQ [facility]; Protocol Last Admin: 10/10/20 12:24 Dose: Not Given Documented by: Isosorbide Dinitrate (Isordil) 10 mg PO TID [facility] Last Admin: 10/10/20 09:05 Dose: 10 mg Documented by: Nitroglycerin (Nitrostat) 0.4 mg SL Q5M PRN PRN Reason: Chest Pain Omeprazole (Prilosec) 20 mg PO BIDAC [facility] Last Admin: 10/10/20 08:21 Dose: 20 mg Documented by: Ondansetron HCl (Zofran) 4 mg IV Q6HP PRN PRN Reason: Nausea And Vomiting Effient 10 Mg Tablet 1 dose PO DAILY [facility] Last Admin: 10/10/20 08:45 Dose: Not Given Documented by: Incruse Ellipta 62.5 (Mcg Inhaler) 1 dose INH DAILY [facility] Last Admin: 10/10/20 08:46 Dose: Not Given Documented by: Budesonide- Formoterol [ Symbicort] 160 Mcg-4 .5 Mcg/Actuation Inhaler 2 dose INH BID [facility] Last Admin: 10/10/20 08:45 Dose: Not Given Documented by: Senna (Senokot) 2 tab PO HS [facility] Last Admin: 10/09/20 20:27 Dose: Not Given Documented by: Sertraline HCl (Zoloft) 25 mg PO DAILY [facility] Last Admin: 10/10/20 08:23 Dose: 25 mg Documented by: Sodium Chloride (Saline Flush) 10 ml IV Q8 [facility] Last Admin: 10/10/20 05:59 Dose: 10 ml Documented by: Sodium Chloride (Saline Flush) 10 ml IV UD PRN PRN Reason: FLUSH Sodium Chloride (Saline Flush) 10 ml IV Q12 [facility] Last Admin: 10/10/20 08:46 Dose: Not Given Documented by: Vancomycin HCl (Vancomycin Oral Catie) 125 mg PO QID [facility]; Protocol Last Admin: 10/10/20 08:25 Dose: 125 mg Documented by: Vancomycin HCl (Vancomycin Per Pharmacy) 1 order IV UD [facility]; Protocol A/P Assessment and plan (1) Ankle fracture: Assessment and plan: NWB on RLE X8 weeks. Remain in long leg splint. Continue IV abx X6 weeks per Dr. Charles. Abx pending culture results. Likely discharge to swing bed in [facility] where pt currently resides. Follow- up with [facility] in 2 weeks for long leg cast and suture removal. Status: Acute (2) C. difficile colitis: Status: Acute Narrative A/P Narrative: A/P Narrative: Assessment: 75-year-old abilities, CAD, COPD, CKD stage III, DM, afib, right ankle fracture status post ORIF now admitted via direct transfer from [facility] with another fracture right fibula and new wounds concerning for surgical site infection, suspected osteomyelitis. Underwent redo ORIF 10/07. #Right fibular shaft fracture #Probable surgical site infection #Presumed osteomyelitis Had redo ORIF 10/07, hardware removed, surgical cultures pending. On IV Vancomycin and Cefepime. ID consulted-plan for 6 weeks IV abx treatment. Will need weekly labs while on IV abx. PICC placed. Analgesics prn. Monitor for post operative complications-required 1 unit RBC, otherwise no issues. PT/OT. #Acute on chronic anemia - received 1 unit RBC 10/09, no evidence of active bleeding at the surgical side or GI bleeding, on ASA and effient and heparin SQ, following hemoglobin post op, iron studies not consistent with iron deficiency #CAD s/p CRISTAL to OM - CRISTAL was placed 05/2020, continued on aspirin and effient perioperatively. Continue atorvastatin and nitro prn. #C diff colitis - continue oral vancomycin QID and appropriate contact precautions. #DM type II - Continue 5 units pm and correction humalog SSI. #HFrEF - stable, on home lasix, continue home Coreg and isosorbide dinitrate. Probably not on ELLIE-I d/t CKD. #CKD III - stable, monitor renal function and avoid nephrotoxic meds. #COPD - Continue home Incruse Ellipta and Symbicort and albuterol nebs prn. #Paroxysmal atrial fibrillation - stable, currently not on anticoagulation, probably because of dual antiplatelet therapy. Continue home amiodarone. #Hypertension - on Coreg and isosorbide dinitrate for HFrEF, holding home Chlorthalidone for now and would avoid it indefinietly with CKD. #Depression - continue Sertraline. #Hx of bladder and lung mass - details unclear however concerning for malignanc y, recommend outpatient workup unless acute issues arise. #DVT prophylaxis - heparin SQ Time Spent With Patient Time: Total time spent is greater than 50% in coordination of care (as documented) at patient's floor/unit and/or counseling patient: Total time spent with greater than 50% in coordination of care (as documented) at patient's floor/unit and/or counseling patient:: 15 - 24 minutes QUALITY VTE Deep Vein Thrombosis/Pulmonary Embolism Present on Admission: No
--- NOTE | 2020-10-10 14:00 | Internal Med Progress Note ---
SUBJECTIVE Subjective Patient information: Note initiated : 10/10/20 at 1:53 pm Service Date, if different from initiated Date: [] Patient: Radha Martínez 75 y/o F admitted on 10/06/20 for Ankle Fracture. Chief Complaint: [] Interval history: Ms. 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 The patient was admitted to the OSH on 10/03, managed with IV antibiotics and after discussing the findings with Dr. Antony who performed the initial surgery at [facility], she was transferred to [facility] due to a staff shortage at [facility]. The hospital stay at [facility] was complicated by C diff colitis which was diagnosed on 10/05 and treated with oral Vancomycin. Per the available documents the hospital stay was otherwise uncomplicated. She arrived in stable condition and underwent surgery 10/07 with redo ORIF and removal of hardware. 10/07-ORIF today with revision ORIF, I&D, and removal of hardware, syndesomosis repair, cultures taken and pending. 10/08-stable, pain controlled with prn norco, resumed home lasix. ID consulted- on Vancomycin IV and Cefepime. 10/09-hgb trending down, received 1 unit RBC. PICC placed. 10/10-discharge planning for SNF. 10/11 Constitutional Vitals: Vital Signs Temp Pulse Resp BP Pulse Ox 97.7 F 64 14 164/82 92 10/10/20 07:02 10/10/20 07:02 10/10/20 07:02 10/10/20 07:02 10/10/20 07:02 Period Temp Pulse Resp BP Sys/Krishna Pulse Ox Last 24 Hr 97.2 F-98.0 F 60-67 14-20 109-164/55-82 91-97 Intake and Output 10/09/20 10/10/20 10/10/20 21:59 05:59 13:59 Intake Total 1860 0 120 Output Total 3 1 Balance 1857 0 119 Weight 74.446 kg Intake & Output: Intake & Output 10/09/20 10/10/20 10/10/20 21:59 05:59 13:59 Intake Total 1860 0 120 Output Total 3 1 Balance 1857 0 119 Weight 74.446 kg Intake: Oral 1500 0 120 Blood Product 360 Output: # of times incontinent of urine 3 1 Other: Meal Lunch Breakfast Percent of Meal Consumed 100% 100% Feeding Ability Assist with Tray Set Up Independent Stool Size Moderate Moderate Moderate Stool Color Brown Brown Brown Stool Consistency Liquid Loose Soft Loose # Voids 1 # Bowel Movements 1 # of times incontinent of 1 1 1 Bowels Exam: General: Alert, Awake, No acute Distress Eyes/N/T: EOMI, Head/Neck: neck supple, CV: RRR, No murmurs, Pulm: Clear b/l, no wheezing/rhonchi/rales Abd: soft, nontender, +BS x4 Ext: no clubbing/cyanosis/edema, right foot in dressings Neuro: Alert, no focal deficits, moves all extremities, Skin: warm/dry OBJ DATA Labs CBC & Chem 7: 10/10/20 06:08 10/10/20 06:07 Labs: Abnormal Lab Results 10/10/20 10/10/20 10/10/20 08:29 06:08 06:07 RBC 2.62 L Hgb 8.7 L Hct 26.9 L MCV 102.7 H MCH RDW 16.7 H Plt Count Neut % (Auto) Lymph % (Auto) Absolute Neutrophils Sodium Potassium Carbon Dioxide Creatinine 1.3 H Glucose Vancomycin Trough 20.1 H* 10/09/20 10/09/20 10/09/20 23:20 15:58 06:02 RBC 2.29 L Hgb 8.2 L 7.0 L* 7.8 L Hct 24.4 L MCV 106.6 H MCH 34.1 H RDW 15.1 H Plt Count 456 H Neut % (Auto) Lymph % (Auto) Absolute Neutrophils Sodium Potassium Carbon Dioxide Creatinine Glucose Vancomycin Trough 10/09/20 10/08/20 10/08/20 06:01 05:49 05:49 RBC 2.65 L Hgb 8.8 L Hct 28.2 L MCV 106.4 H MCH RDW 14.7 H Plt Count Neut % (Auto) 82.4 H Lymph % (Auto) 14.3 L Absolute Neutrophils 8.64 H Sodium 131 L Potassium Carbon Dioxide 20 L Creatinine 1.3 H 1.4 H Glucose 108 H 140 H Vancomycin Trough 10/07/20 20:38 RBC Hgb Hct MCV MCH RDW Plt Count Neut % (Auto) Lymph % (Auto) Absolute Neutrophils Sodium 132 L Potassium 5.2 H Carbon Dioxide 19 L Creatinine 1.5 H Glucose 281 H Vancomycin Trough Meds: Medications Acetaminophen (Tylenol) 650 mg PO Q6HP PRN; Protocol PRN Reason: Per Pain Protocol/Fever > 101 Hydrocodone Bitart/Acetaminophen ([place] 10/325mg) 1 - 2 tab PO Q4HP PRN; Protocol PRN Reason: Per Pain Protocol Last Admin: 10/10/20 09:04 Dose: 1 tab Documented by: Albuterol Sulfate (Ventolin) 2.5 mg NEB Q2HP PRN PRN Reason: Shortness Of Breath [facility] Last Admin: 10/10/20 08:22 Dose: 200 mg Documented by: Aspirin (Aspirin) 81 mg CHEWED DAILY [facility] Last Admin: 10/10/20 08:24 Dose: 81 mg Documented by: Atorvastatin Calcium (Lipitor) 40 mg PO DAILY [facility] Last Admin: 10/10/20 08:22 Dose: 40 mg Documented by: [facility] ([facility]) [facility] Last Admin: 10/10/20 08:22 Dose: 3.125 mg Documented by: Cefepime HCl (Maxipime) 1 gm IV Q8H [facility]; Protocol Last Admin: 10/10/20 05:59 Dose: 1 gm Documented by: Dextrose (Dextrose 50%) 0 ml IV UD PRN PRN Reason: Hypoglycemia Diagnostic Test (Pha) (Accu-Chek) 1 each FS ACHS [facility] Last Admin: 10/10/20 12:23 Dose: 1 each Documented by: Docusate Sodium (Colace) 100 mg PO BID [facility] Last Admin: 10/10/20 08:24 Dose: Not Given Documented by: Duloxetine HCl (Cymbalta) 30 mg PO HS [facility] Last Admin: 10/09/20 20:41 Dose: 30 mg Documented by: Furosemide (Lasix) 20 mg PO DAILY [facility] Last Admin: 10/10/20 08:23 Dose: 20 mg Documented by: Gabapentin (Neurontin) 400 mg PO DAILY [facility] Last Admin: 10/10/20 08:24 Dose: 400 mg Documented by: Glucose (Insta-Glucose) 15 gm PO PRN PRN PRN Reason: Hypoglycemia Guaifenesin/Codeine Phosphate (Robitussin Ac) 5 ml PO Q4HP PRN PRN Reason: Cough Heparin Sodium (Porcine) (Heparin) 5,000 unit SQ Q12 [facility] Last Admin: 10/10/20 08:24 Dose: 5,000 unit Documented by: Heparin Sodium (Porcine) (Heparin 10 Units/Ml Flush) 2 ml IV Q12 [facility] Last Admin: 10/10/20 08:25 Dose: 2 ml Documented by: Hydromorphone HCl (Dilaudid) 0.5 mg IV Q4HP PRN; Protocol PRN Reason: Per Pain Protocol Last Admin: 10/09/20 16:30 Dose: 0.5 mg Documented by: Insulin Glargine (Lantus) 5 unit SQ [facility] Last Admin: 10/09/20 20:56 Dose: 5 units Documented by: Insulin Human Lispro (Humalog) 0 unit SQ [facility]; Protocol Last Admin: 10/10/20 12:24 Dose: Not Given Documented by: Isosorbide Dinitrate (Isordil) 10 mg PO TID [facility] Last Admin: 10/10/20 09:05 Dose: 10 mg Documented by: Nitroglycerin (Nitrostat) 0.4 mg SL Q5M PRN PRN Reason: Chest Pain Omeprazole (Prilosec) 20 mg PO BIDAC [facility] Last Admin: 10/10/20 08:21 Dose: 20 mg Documented by: Ondansetron HCl (Zofran) 4 mg IV Q6HP PRN PRN Reason: Nausea And Vomiting Effient 10 Mg Tablet 1 dose PO DAILY [facility] Last Admin: 10/10/20 08:45 Dose: Not Given Documented by: Incruse Ellipta 62.5 (Mcg Inhaler) 1 dose INH DAILY [facility] Last Admin: 10/10/20 08:46 Dose: Not Given Documented by: Budesonide- Formoterol [ Symbicort] 160 Mcg-4 .5 Mcg/Actuation Inhaler 2 dose INH BID [facility] Last Admin: 10/10/20 08:45 Dose: Not Given Documented by: Senna (Senokot) 2 tab PO HS [facility] Last Admin: 10/09/20 20:27 Dose: Not Given Documented by: Sertraline HCl (Zoloft) 25 mg PO DAILY [facility] Last Admin: 10/10/20 08:23 Dose: 25 mg Documented by: Sodium Chloride (Saline Flush) 10 ml IV Q8 [facility] Last Admin: 10/10/20 05:59 Dose: 10 ml Documented by: Sodium Chloride (Saline Flush) 10 ml IV UD PRN PRN Reason: FLUSH Sodium Chloride (Saline Flush) 10 ml IV Q12 [facility] Last Admin: 10/10/20 08:46 Dose: Not Given Documented by: Vancomycin HCl (Vancomycin Oral Catie) 125 mg PO QID [facility]; Protocol Last Admin: 10/10/20 13:48 Dose: 125 mg Documented by: Vancomycin HCl (Vancomycin Per Pharmacy) 1 order IV UD [facility]; Protocol A/P Narrative A/P Narrative: A: *Right ankle fracture with Probable surgical site infection: -Had redo ORIF 10/07, hardware removed, surgical cultures pending. *Presumed osteomyelitis: *Acute on chronic anemia: received 1 unit RBC 10/09, no evidence of active bleeding at the surgical side or GI bleeding -on ASA and effient and heparin SQ, following hemoglobin post op, iron studies not consistent with iron deficiency *CAD s/p CRISTAL to OM placed 05/2020: continued on aspirin and effient perioperatively. Continue atorvastatin and nitro prn. *C diff colitis: *DM type II. *HFrEF - stable, *CKD III - stable, *COPD - *Paroxysmal atrial fibrillation - stable, *HTN: *Depression: continue Sertraline. *Hx of bladder and lung mass - details unclear however concerning for malignancy, recommend outpatient workup unless acute issues arise. P: -Ortho on case -ID consulted, IV Vancomycin and Cefepime. plan for 6 weeks IV abx. weekly labs while on IV abx. PICC placed -continue oral vancomycin QID until off IV abx -Analgesics prn. -Continue 5 units pm and correction humalog SSI -on home lasix, continue home Coreg and isosorbide dinitrate. Probably not on ELLIE-I d/t CKD. -Continue home Incruse Ellipta and Symbicort and albuterol nebs prn. -currently not on anticoagulation, probably because of dual antiplatelet therapy. Continue home amiodarone. -on Coreg and isosorbide dinitrate for HFrEF, holding home Chlorthalidone for now and would avoid it indefinietly with CKD. -DVT prophylaxis: heparin SQ DNR Time Spent With Patient Time: Total time spent is greater than 50% in coordination of care (as documented) at patient's floor/unit and/or counseling patient: QUALITY VTE Deep Vein Thrombosis/Pulmonary Embolism Present on Admission: No
--- NOTE | 2020-10-10 17:11 | Infectious Disease Consult ---
HPI Consult Narrative cc:: CC: Chase Kahn MD Radha is a 75-year-old woman who is postop day 3 from right ankle fracture revision. cultures continue to be negative. she reports 5/10 pain scale. vanco cefepime continue. PFSH PFSH All Active Problems (Updated 10/08/20 @ 18:15 by Gio Charles MD) CKD (chronic kidney disease) (Acute) Diabetes mellitus (Acute) Ankle wound (Acute) C. difficile colitis (Acute) Ankle fracture (Acute) Medical History (Updated 10/08/20 @ 18:15 by Gio Charles MD) Atrial fibrillation (Acute) CKD (chronic kidney disease) (Acute) COPD (chronic obstructive pulmonary disease) (Acute) Diabetes mellitus (Acute) HFrEF (heart failure with reduced ejection fraction) (Acute) Neuropathy (Acute) Surgical History (Updated 10/06/20 @ 20:40 by Chase Kahn MD) Ankle fracture, right (Acute) Family History (Updated 10/06/20 @ 20:41 by Chase Kahn MD) Sister Diabetes mellitus Social History (Updated 10/06/20 @ 20:42 by Chase Kahn MD) smoking status: Former smoker alcohol intake frequency: does not drink substance use type: does not use MEDS/ALLERGIES Home Medications and Allergies Home Medications Medication Instructions Recorded Confirmed Type amiodarone 200 mg PO BID 10/07/20 10/07/20 History aspirin 81 mg PO DAILY 10/07/20 10/07/20 History atorvastatin 40 mg PO HS 10/07/20 10/07/20 History budesonide-formoterol [Symbicort] 2 puff INHALATION BID 10/07/20 10/07/20 History carvedilol 3.125 mg PO BID 10/07/20 10/07/20 History chlorthalidone 25 mg PO DAILY 10/07/20 10/07/20 History dulaglutide [Trulicity] 1.5 mg SUBCUT WEEKLY 10/07/20 10/07/20 History ergocalciferol (vitamin D2) 1,250 mcg PO WEEKLY 10/07/20 10/07/20 History [Vitamin D2] furosemide 20 mg PO DAILY 10/07/20 10/07/20 History gabapentin 400 mg PO DAILY 10/07/20 10/07/20 History hydrocodone-acetaminophen 1 tab PO TID 10/07/20 10/07/20 History isosorbide dinitrate 10 mg PO TID 10/07/20 10/07/20 History prasugrel 10 mg PO DAILY 10/07/20 10/07/20 History sertraline 25 mg PO DAILY 10/07/20 10/07/20 History umeclidinium [Incruse Ellipta] 1 inh INHALATION DAILY 10/07/20 10/07/20 History Allergies Allergy/AdvReac Type Severity Reaction Status Date / Time sulfamethoxazole AdvReac Mild Vomiting Verified 10/08/20 06:43 [From Sulfamethoxazole-Trimethoprim] trimethoprim AdvReac Mild Vomiting Verified 10/08/20 06:43 [From Sulfamethoxazole-Trimethoprim] Physical Examination Vital Signs Vital signs: Temp Pulse Resp BP Pulse Ox 97.8 F 94 H 14 162/84 94 10/10/20 12:00 10/10/20 12:00 10/10/20 12:00 10/10/20 12:00 10/10/20 12:00 Additional Exam Additional exam: skin without rash, left picc line. right ankle wrapped. abd soft nontender. she doesnt know if shes having diarrhea. Results Laboratory Findings CBC and BMP: 10/10/20 06:08 10/10/20 06:07 ABG, PT/INR, D-dimer: PT/INR, D-dimer PT 14.6 sec (11.9-14.5) H 10/06/20 21:35 INR 1.1 (0.9-1.1) 10/06/20 21:35 Abnormal lab findings: Abnormal Labs 10/06/20 10/06/20 10/06/20 19:50 19:50 21:35 RBC L Hgb L Hct L MCV H MCH RDW H Plt Count H Neut % (Auto) Lymph % (Auto) Absolute Neutrophils RBC Morphology Anisocytosis Macrocytosis PT 14.6 H Sodium Potassium Carbon Dioxide Creatinine Glucose Phosphorus GGT C-Reactive Protein 3.20 H Albumin Albumin/Globulin Ratio Triglycerides Vancomycin Trough 10/06/20 10/07/20 10/07/20 21:35 05:30 20:38 RBC 2.96 L Hgb 9.9 L Hct 31.9 L MCV 107.8 H MCH RDW 15.1 H Plt Count Neut % (Auto) Lymph % (Auto) Absolute Neutrophils RBC Morphology Abnormal A Anisocytosis 1+ A Macrocytosis 1+ A PT Sodium 132 L Potassium 5.2 H Carbon Dioxide 19 L Creatinine 1.6 H 1.5 H Glucose 132 H 281 H Phosphorus 4.6 H GGT 73 H C-Reactive Protein Albumin 3.1 L Albumin/Globulin Ratio 0.9 L Triglycerides 246 H Vancomycin Trough 10/08/20 10/08/20 10/09/20 05:49 05:49 06:01 RBC 2.65 L Hgb 8.8 L Hct 28.2 L MCV 106.4 H MCH RDW 14.7 H Plt Count Neut % (Auto) 82.4 H Lymph % (Auto) 14.3 L Absolute Neutrophils 8.64 H RBC Morphology Anisocytosis Macrocytosis PT Sodium 131 L Potassium Carbon Dioxide 20 L Creatinine 1.4 H 1.3 H Glucose 140 H 108 H Phosphorus GGT C-Reactive Protein Albumin Albumin/Globulin Ratio Triglycerides Vancomycin Trough 10/09/20 10/09/20 10/09/20 06:02 15:58 23:20 RBC 2.29 L Hgb 7.8 L 7.0 L* 8.2 L Hct 24.4 L MCV 106.6 H MCH 34.1 H RDW 15.1 H Plt Count 456 H Neut % (Auto) Lymph % (Auto) Absolute Neutrophils RBC Morphology Anisocytosis Macrocytosis PT Sodium Potassium Carbon Dioxide Creatinine Glucose Phosphorus GGT C-Reactive Protein Albumin Albumin/Globulin Ratio Triglycerides Vancomycin Trough 10/10/20 10/10/20 10/10/20 06:07 06:08 08:29 RBC 2.62 L Hgb 8.7 L Hct 26.9 L MCV 102.7 H MCH RDW 16.7 H Plt Count Neut % (Auto) Lymph % (Auto) Absolute Neutrophils RBC Morphology Anisocytosis Macrocytosis PT Sodium Potassium Carbon Dioxide Creatinine 1.3 H Glucose Phosphorus GGT C-Reactive Protein Albumin Albumin/Globulin Ratio Triglycerides Vancomycin Trough 20.1 H* Microbiology: Microbiology 10/07/20 14:15 Ankle - Right Gram Stain - Preliminary 10/07/20 14:15 Ankle - Right Anaerobic Culture - Preliminary 10/07/20 14:19 Ankle - Right Gram Stain - Final 10/07/20 14:19 Ankle - Right Wound Culture - Final 10/06/20 19:56 Nose MRSA (PCR) - Final A/P Assessment and plan (1) Ankle fracture: Status: Acute (2) Ankle wound: Status: Acute (3) C. difficile colitis: Status: Acute (4) Diabetes mellitus: Status: Acute (5) CKD (chronic kidney disease): Status: Acute Narrative A/P Narrative: Radha is a 75-year-old diabetic postop day 3 from right ankle fracture revision. cultures are negative from 10/07. Vanco 1 g daily dose adjusted for renal insufficiency. cefepime 1 g 3 times daily. With negative cultures I am comfortable switching cefepime to Rocephin 1 g daily.. Continue Vanco plus Rocephin for 6 weeks. Check weekly labs to include CBC CMP sed rate CRP and Vanco trough. I could arrange [facility] in 3 weeks, As she plans to go back to swing bed status at [facility]. Treatment plan for probable osteomyelitis. CKD :most recent creatinine 1.3 with Vanco trough 20.1, Time Spent With Patient Time: Total time spent is greater than 50% in coordination of care (as documented) at patient's floor/unit and/or counseling patient:
[2020-10-10] MEDS: DULoxetine 30 MG CAPSULE PO SCH (21:08)
[2020-10-10] MEDS: SENNOSIDES 1 TABLET PO SCH (21:27)
[2020-10-10] MEDS: INSULIN GLARGINE, HUMAN 1 UNIT/0.01 ML SQ SCH (21:27)
[2020-10-11] MEDS: HYDROcodone/APAP 10/325MG TABLET PO PRN ×3 (05:39→19:38)
[2020-10-11] MEDS: 0.9 % SODIUM CHLORIDE 10 ML SYRINGE IV SCH ×5 (05:40→20:34)
[2020-10-11] MEDS: CEFEPIME 1 GM VIAL IV SCH (05:40)
[2020-10-11] MEDS: INSULIN LISPRO 1 UNIT/0.01 ML UNIT SQ SCH ×4 (07:05→20:30)
[2020-10-11] MEDS: OMEPRAZOLE 20 MG CAPSULE PO SCH ×2 (07:05→16:55)
--- NOTE | 2020-10-11 08:09 | Internal Med Progress Note ---
SUBJECTIVE Subjective Patient information: Note initiated : 10/11/20 at 8:04 am Service Date, if different from initiated Date: [] Patient: Radha Martínez 75 y/o F admitted on 10/06/20 for Ankle Fracture. Chief Complaint: [] Interval history: Ms. Martínez is a 75 year old female with an extensive past medical history including CAD status post CRISTAL to OM 05/2020 (on ASA and Effient), HFrEF (LVEF 20%), COPD, Diabetes mellitus type II, afib (currently off anticoagulation), CKD III, previous smoker (quite one month ago), bladder and lung mass of unknown etiology, recent ankle fracture s/p ORIF who came to [facility] by direct transfer from [facility] for a new displaced right fibular shaft fracture (at the site of recently placed hardware) as well as draining foot and ankle wounds concerning for an infected surgical site and possible underlying osteomyelitis. The patient was admitted to the OSH on 10/03, managed with IV antibiotics and after discussing the findings with Dr. Antony who performed the initial surgery at [facility], she was transferred to [facility] due to a staff shortage at [facility]. The hospital stay at [facility] was complicated by C diff colitis which was diagnosed on 10/05 and treated with oral Vancomycin. Per the available documents the hospital stay was otherwise uncomplicated. She arrived in stable condition and underwent surgery 10/07 with redo ORIF and removal of hardware. 10/07-ORIF today with revision ORIF, I&D, and removal of hardware, syndesomosis repair, cultures taken and pending. 10/08-stable, pain controlled with prn norco, resumed home lasix. ID consulted- on Vancomycin IV and Cefepime. 10/09-hgb trending down, received 1 unit RBC. PICC placed. 10/10-discharge planning for SNF. 10/11 Other than a headache. No new complaints. No overnight events. Cefepime changed to Rocephin per Dr. Charles. Review of Systems: denies fever/chills/nausea/vomiting/chest or abdominal pain/cough/dyspnea/diarrhea. Otherwise see above. Constitutional Vitals: Vital Signs Temp Pulse Resp BP Pulse Ox 97.5 F 64 16 199/97 94 10/11/20 04:00 10/11/20 07:09 10/11/20 07:09 10/11/20 07:09 10/11/20 07:09 Period Temp Pulse Resp BP Sys/Krishna Pulse Ox Last 24 Hr 97.2 F-97.8 F 59-94 14-16 133-199/67-97 93-96 Intake and Output 10/10/20 10/11/20 10/11/20 21:59 05:59 13:59 Intake Total 480 240 Output Total 5 2 Balance 475 238 Weight 78.982 kg Intake & Output: Intake & Output 10/10/20 10/11/20 10/11/20 21:59 05:59 13:59 Intake Total 480 240 Output Total 5 2 Balance 475 238 Weight 78.982 kg Intake: Oral 480 240 Output: # of times incontinent of urine 5 2 Other: Meal Lunch Percent of Meal Consumed 75% Feeding Ability Independent Stool Size Moderate Stool Color Brown Brown Stool Consistency Soft Liquid Loose # Bowel Movements 1 # of times incontinent of 1 Bowels Exam: General: Alert, Awake, No acute Distress Eyes/N/T: EOMI, Head/Neck: neck supple, CV: RRR, No murmurs, Pulm: Clear b/l, no wheezing/rhonchi/rales Abd: soft, nontender, +BS x4 Ext: no clubbing/cyanosis/edema, right foot in dressings/splint Neuro: Alert, no focal deficits, moves all extremities, Skin: warm/dry OBJ DATA Labs CBC & Chem 7: 10/10/20 06:08 10/10/20 06:07 Labs: Abnormal Lab Results 10/10/20 10/10/20 10/10/20 08:29 06:08 06:07 RBC 2.62 L Hgb 8.7 L Hct 26.9 L MCV 102.7 H MCH RDW 16.7 H Plt Count Creatinine 1.3 H Glucose Vancomycin Trough 20.1 H* 10/09/20 10/09/20 10/09/20 23:20 15:58 06:02 RBC 2.29 L Hgb 8.2 L 7.0 L* 7.8 L Hct 24.4 L MCV 106.6 H MCH 34.1 H RDW 15.1 H Plt Count 456 H Creatinine Glucose Vancomycin Trough 10/09/20 06:01 RBC Hgb Hct MCV MCH RDW Plt Count Creatinine 1.3 H Glucose 108 H Vancomycin Trough Meds: Medications Acetaminophen (Tylenol) 650 mg PO Q6HP PRN; Protocol PRN Reason: Per Pain Protocol/Fever > 101 Hydrocodone Bitart/Acetaminophen (Franklin 10/325mg) 1 - 2 tab PO Q4HP PRN; Protocol PRN Reason: Per Pain Protocol Last Admin: 10/11/20 05:39 Dose: 1 tab Documented by: Albuterol Sulfate (Ventolin) 2.5 mg NEB Q2HP PRN PRN Reason: Shortness Of Breath [facility] Last Admin: 10/10/20 17:38 Dose: 200 mg Documented by: Aspirin (Aspirin) 81 mg CHEWED DAILY [facility] Last Admin: 10/10/20 08:24 Dose: 81 mg Documented by: Atorvastatin Calcium (Lipitor) 40 mg PO DAILY [facility] Last Admin: 10/10/20 08:22 Dose: 40 mg Documented by: [facility] ([facility]g) [facility] Last Admin: 10/10/20 17:38 Dose: 3.125 mg Documented by: Cefepime HCl (Maxipime) 1 gm IV Q8H [facility]; Protocol Last Admin: 10/11/20 05:40 Dose: 1 gm Documented by: Dextrose (Dextrose 50%) 0 ml IV UD PRN PRN Reason: Hypoglycemia Diagnostic Test (Pha) (Accu-Chek) 1 each FS ACHS [facility] Last Admin: 10/11/20 07:05 Dose: 1 each Documented by: Docusate Sodium (Colace) 100 mg PO BID [facility] Last Admin: 10/10/20 21:26 Dose: Not Given Documented by: Duloxetine HCl (Cymbalta) 30 mg PO HS [facility] Last Admin: 10/10/20 21:08 Dose: 30 mg Documented by: Furosemide (Lasix) 20 mg PO DAILY [facility] Last Admin: 10/10/20 08:23 Dose: 20 mg Documented by: Gabapentin (Neurontin) 400 mg PO DAILY [facility] Last Admin: 10/10/20 08:24 Dose: 400 mg Documented by: Glucose (Insta-Glucose) 15 gm PO PRN PRN PRN Reason: Hypoglycemia Guaifenesin/Codeine Phosphate (Robitussin Ac) 5 ml PO Q4HP PRN PRN Reason: Cough Heparin Sodium (Porcine) (Heparin) 5,000 unit SQ Q12 [facility] Last Admin: 10/10/20 21:08 Dose: 5,000 unit Documented by: Heparin Sodium (Porcine) (Heparin 10 Units/Ml Flush) 2 ml IV Q12 [facility] Last Admin: 10/10/20 21:09 Dose: 2 ml Documented by: Hydromorphone HCl (Dilaudid) 0.5 mg IV Q4HP PRN; Protocol PRN Reason: Per Pain Protocol Last Admin: 10/09/20 16:30 Dose: 0.5 mg Documented by: Insulin Glargine (Lantus) 5 unit SQ [facility] Last Admin: 10/10/20 21:27 Dose: 5 units Documented by: Insulin Human Lispro (Humalog) 0 unit SQ [facility]; Protocol Last Admin: 10/11/20 07:05 Dose: Not Given Documented by: Isosorbide Dinitrate (Isordil) 10 mg PO TID [facility] Last Admin: 10/10/20 21:55 Dose: Not Given Documented by: Nitroglycerin (Nitrostat) 0.4 mg SL Q5M PRN PRN Reason: Chest Pain Omeprazole (Prilosec) 20 mg PO BIDAC [facility] Last Admin: 10/11/20 07:05 Dose: 20 mg Documented by: Ondansetron HCl (Zofran) 4 mg IV Q6HP PRN PRN Reason: Nausea And Vomiting Effient 10 Mg Tablet 1 dose PO DAILY [facility] Last Admin: 10/10/20 08:45 Dose: Not Given Documented by: Incruse Ellipta 62.5 (Mcg Inhaler) 1 dose INH DAILY [facility] Last Admin: 10/10/20 08:46 Dose: Not Given Documented by: Budesonide- Formoterol [ Symbicort] 160 Mcg-4 .5 Mcg/Actuation Inhaler 2 dose INH BID [facility] Last Admin: 10/10/20 21:27 Dose: Not Given Documented by: Senna (Senokot) 2 tab PO [facility] Last Admin: 10/10/20 21:27 Dose: Not Given Documented by: Sertraline HCl (Zoloft) 25 mg PO DAILY [facility] Last Admin: 10/10/20 08:23 Dose: 25 mg Documented by: Sodium Chloride (Saline Flush) 10 ml IV Q8 [facility] Last Admin: 10/11/20 05:40 Dose: 10 ml Documented by: Sodium Chloride (Saline Flush) 10 ml IV UD PRN PRN Reason: FLUSH Sodium Chloride (Saline Flush) 10 ml IV Q12 [facility] Last Admin: 10/10/20 21:27 Dose: 10 ml Documented by: Vancomycin HCl (Vancomycin Oral Catie) 125 mg PO QID [facility]; Protocol Last Admin: 10/10/20 21:08 Dose: 125 mg Documented by: Vancomycin HCl (Vancomycin Per Pharmacy) 1 order IV UD [facility]; Protocol A/P Narrative A/P Narrative: A: *Right ankle fracture with Probable surgical site infection: -Had redo ORIF 10/07, hardware removed, cultures neg *Presumed osteomyelitis: *Acute on chronic anemia: received 1 unit RBC 10/09, no evidence of active bleeding at the surgical side or GI bleeding -on ASA and effient and heparin SQ, following hemoglobin post op, iron studie s not consistent with iron deficiency *CAD s/p CRISTAL to OM placed 05/2020: continued on aspirin and effient perioperatively. Continue atorvastatin and nitro prn. *C diff colitis: *DM type II. *HFrEF - stable, *CKD III - stable, *COPD - *Paroxysmal atrial fibrillation - stable, *HTN: *Depression: continue Sertraline. *Hx of bladder and lung mass - details unclear however concerning for malignancy, recommend outpatient workup unless acute issues arise. P: -Ortho on case -ID consulted, IV Vancomycin/Rocephin. plan for 6 weeks IV abx. weekly labs while on IV abx. PICC placed -continue oral vancomycin QID until off IV abx -basal and SSI -on home lasix -on Coreg and isosorbide dinitrate for HFrEF, holding home Chlorthalidone for now and would avoid it indefinitely with CKD. -Continue home Incruse Ellipta and Symbicort and albuterol nebs prn. -currently not on anticoagulation, probably because of dual antiplatelet therapy. Continue home amiodarone. -CM for placement -DVT prophylaxis: heparin SQ DNR Time Spent With Patient Time: Total time spent is greater than 50% in coordination of care (as documented) at patient's floor/unit and/or counseling patient: QUALITY VTE Deep Vein Thrombosis/Pulmonary Embolism Present on Admission: No
[2020-10-11] MEDS: FUROSEMIDE 20 MG TABLET PO SCH (08:42)
[2020-10-11] MEDS: CARVEDILOL 6.25 MG TABLET PO SCH ×2 (08:43→16:55)
[2020-10-11] MEDS: AMIODARONE HCL 200 MG TABLET PO SCH ×2 (08:43→16:55)
[2020-10-11] MEDS: ATORVASTATIN 40 MG TABLET PO SCH (08:43)
[2020-10-11] MEDS: SERTRALINE 50 MG TABLET PO SCH (08:43)
[2020-10-11] MEDS: DOCUSATE SODIUM 100 MG CAPSULE PO SCH ×2 (08:44→20:30)
[2020-10-11] MEDS: ASPIRIN 81 MG TAB.CHEW CHEWED SCH (08:44)
[2020-10-11] MEDS: GABAPENTIN 400 MG CAPSULE PO SCH (08:44)
[2020-10-11] MEDS: HEPARIN 5,000 UNIT/ML VIAL SQ SCH ×2 (08:45→20:30)
[2020-10-11] MEDS: cefTRIAXone 1 GM VIAL IV SCH (08:46)
[2020-10-11] MEDS: FORMOTEROL INH SCH ×2 (08:50→20:32)
[2020-10-11] MEDS: BUDESONIDE INH SCH ×2 (08:50→20:32)
[2020-10-11] MEDS: INCRUSE ELLIPTA 62.5 MCG INH SCH (08:51)
[2020-10-11] MEDS: EFFIENT 10 MG PO SCH (08:51)
[2020-10-11] MEDS: VANCOMYCIN ORAL SOL 1,000 MG/10 ML BOTTLE PO SCH ×4 (10:22→20:33)
[2020-10-11] MEDS: ISOSORBIDE DINITRATE 10 MG TABLET PO SCH ×3 (10:23→20:34)
[2020-10-11] MEDS: CARVEDILOL 3.125 MG TABLET PO SCH (10:34)
--- NOTE | 2020-10-11 11:26 | Discharge Summary ---
Discharge Provider Provider Patient information: Note initiated : 10/11/20 at 11:21 am Service Date, if different from initiated Date: [] Patient: Radha Martínez 75 y/o F admitted on 10/06/20 for Ankle Fracture. Chief Complaint: [] Date of admission: 10/06/20 17:49 Consults: 10/06/20 20:19 Consult to Physician [CONS] Routine Comment: Consulting Provider: Duane Antony Reason For Exam: Physician to Consult 10/08/20 17:37 Consult to Physician [CONS] Routine Comment: Consulting Provider: Gio Charles Reason For Exam: Physician to Consult Discharge Meds Discharge Medications Home Medications Incruse Ellipta 1 inh INHALATION DAILY 10/07/20 [History Confirmed 10/07/20 Last Taken Unknown] Trulicity 1.5 mg SUBCUT WEEKLY 10/07/20 [History Confirmed 10/07/20 Last Taken Unknown] amiodarone 200 mg PO BID 10/07/20 [History Confirmed 10/07/20 Last Taken Unknown] aspirin 81 mg PO DAILY 10/07/20 [History Confirmed 10/07/20 Last Taken Unknown] atorvastatin 40 mg PO HS 10/07/20 [History Confirmed 10/07/20 Last Taken Unknown] budesonide-formoterol [Symbicort] 2 puff INHALATION BID 10/07/20 [History Confirmed 10/07/20 Last Taken Unknown] carvedilol 3.125 mg PO BID 10/07/20 [History Confirmed 10/07/20 Last Taken Unknown] ergocalciferol (vitamin D2) [Vitamin D2] 1,250 mcg PO WEEKLY 10/07/20 [History Confirmed 10/07/20 Last Taken Unknown] furosemide 20 mg PO DAILY 10/07/20 [History Confirmed 10/07/20 Last Taken Unknown] gabapentin 400 mg PO DAILY 10/07/20 [History Confirmed 10/07/20 Last Taken Unknown] hydrocodone-acetaminophen 1 tab PO TID 10/07/20 [History Confirmed 10/07/20 Last Taken Unknown] isosorbide dinitrate 10 mg PO TID 10/07/20 [History Confirmed 10/07/20 Last Taken Unknown] prasugrel 10 mg PO DAILY 10/07/20 [History Confirmed 10/07/20 Last Taken Unknown] sertraline 25 mg PO DAILY 12/14/20 [History Confirmed 10/07/20 Last Taken Unknown] ceftriaxone 1 g IV QDAY #35 each 10/11/20 [Rx Last Taken Unknown] vancomycin 1 g IV DAILY #35 each 10/11/20 [Rx Last Taken Unknown] vancomycin 125 mg PO QID #40 ea 10/11/20 [Rx Last Taken Unknown] carvedilol 6.25 mg PO BIDCC #30 tab 10/13/20 [Rx Last Taken Unknown] COURSE Hospital Course Hospital course: Interval history: Ms. Martínez is a 75 year old female with an extensive past medical history including CAD status post CRISTAL to OM 05/2020 (on ASA and Effient), HFrEF (LVEF 20%), COPD, Diabetes mellitus type II, afib (currently off anticoagulation), CKD III, previous smoker (quite one month ago), bladder and lung mass of unknown etiology, recent ankle fracture s/p ORIF who came to [facility] by direct transfer from [facility] for a new displaced right fibular shaft fracture (at the site of recently placed hardware) as well as draining foot and ankle wounds concerning for an infected surgical site and possible underlying osteomyelitis. The patient was admitted to the OSH on 10/03, managed with IV antibiotics and after discussing the findings with Dr. Antony who performed the initial surgery at [facility], she was transferred to [facility] due to a staff shortage at [facility]. The hospital stay at [facility] was complicated by C diff colitis which was diagnosed on 10/05 and treated with oral Vancomycin. Per the available documents the hospital stay was otherwise uncomplicated. She arrived in stable condition and underwent surgery 10/07 with redo ORIF and removal of hardware. 10/07-ORIF today with revision ORIF, I&D, and removal of hardware, syndesomosis repair, cultures taken and pending. 10/08-stable, pain controlled with prn norco, resumed home lasix. ID consulted- on Vancomycin IV and Cefepime. 10/09-hgb trending down, received 1 unit RBC. PICC placed. 10/10-discharge planning for SNF. 10/11 Other than a headache. No new complaints. No overnight events. Cefepime changed to Rocephin per Dr. Charles. 10/12 Doing well. No overnight events or new complaints. 10/13 No overnight event or new complaints. Blood pressure typically been running high and so we have been titrating her blood pressure medications but then it dropped last night. Has been well since little bit on the higher side. Stop Norvasc, we will continue the Coreg at the increased dose 10/14 No change in status. No overnight events. Blood pressures labile. Awaiting placement. A: *Right ankle fracture with Probable surgical site infection: -Had redo ORIF 10/07, hardware removed, cultures neg *Presumed osteomyelitis: *Acute on chronic anemia: received 1 unit RBC 10/09, no evidence of active bleeding at the surgical side or GI bleeding -on ASA and effient and heparin SQ, following hemoglobin post op, iron studies not consistent with iron deficiency *CAD s/p CRISTAL to OM placed 05/2020: continued on aspirin and effient perioperatively. Continue atorvastatin and nitro prn. *C diff colitis: *DM type II. *HFrEF - stable, *CKD III - stable, *COPD - *Paroxysmal atrial fibrillation - stable, *HTN: mostly HTN but labile, started norvasc and had increased coreg but then had bp drop,stopped norvasc *Depression: continue Sertraline. *Hx of bladder CA (no lung mass on last two chest xrays) - details unclear however concerning for malignancy, being worked up outpt by urology per recent PSYCHIATRIC notes Discharge diagnosis: Right ankle fracture and surgical site infection with osteomyelitis anemia Secondary discharge diagnosis: CAD C. difficile colitis prior to admission diabetes CHF chronic kidney disease COPD paroxysmal H fibrillation hypertension depression Time Spent with Patient Time attestation: Total time spent providing and/or coordinating discharge services: Time spent: Greater than 30 minutes EXAM Constitutional Vitals: Temp Pulse Resp BP Pulse Ox 97.5 F 64 16 199/97 94 10/11/20 04:00 10/11/20 07:09 10/11/20 07:09 10/11/20 07:09 10/11/20 07:09 Discharge Data Data Completed and Pending Labs on day of discharge: Labs from last 24 hours 10/11/20 10/11/20 04:30 04:30 Platelet Estimate Pending RBC Morphology Pending Random Vancomycin Pending Preliminary micro results at discharge 10/07/20 14:15 Gram Stain - Preliminary Ankle - Right Anaerobic Culture - Preliminary Discharge Plan Patient/Caregiver Discharge Instructions Activity: increase activity as tolerated and other Diet: Consistent Carbohydrate Activity Restrictions/Additional Instructions: pharmacy to dose vancomycin. weekly cbc/cmp/esr/crp/vanc trough per Dr. Atkinson - send results to his office. picc line care until IV abx finish then d/c. Ceftriaxone and Vancomycin for 6 week course to finish 11/18/2020. Follow-up with PCP in 3 to 7 days. Prescriptions: New vancomycin 1,000 mg Recon Soln 125 mg PO QID Qty: 40 RF: 0 vancomycin 1,000 mg recon soln 1 g IV DAILY Qty: 35 RF: 0 ceftriaxone 1 gram recon soln 1 g IV QDAY Qty: 35 RF: 0 carvedilol 6.25 mg Tablet 6.25 mg PO BIDCC Qty: 30 RF: 0 Continued amiodarone 200 mg tablet 200 mg PO BID RF: 0 aspirin 81 mg tablet,chewable 81 mg PO DAILY RF: 0 atorvastatin 40 mg tablet 40 mg PO HS RF: 0 carvedilol 3.125 mg tablet 3.125 mg PO BID RF: 0 furosemide 20 mg tablet 20 mg PO DAILY RF: 0 gabapentin 400 mg capsule 400 mg PO DAILY RF: 0 hydrocodone-acetaminophen 5-325 mg tablet 1 tab PO TID RF: 0 Incruse Ellipta 62.5 mcg/actuation blister with device 1 inh INHALATION DAILY RF: 0 isosorbide dinitrate 10 mg tablet 10 mg PO TID RF: 0 prasugrel 10 mg tablet 10 mg PO DAILY RF: 0 sertraline 25 mg tablet 25 mg PO DAILY RF: 0 budesonide-formoterol [Symbicort] 160-4.5 mcg/actuation HFA aerosol inhaler 2 puff INHALATION BID RF: 0 Trulicity 1.5 mg/0.5 mL pen injector 1.5 mg SUBCUT WEEKLY RF: 0 ergocalciferol (vitamin D2) [Vitamin D2] 1,250 mcg (50,000 unit) capsule 1,250 mcg PO WEEKLY RF: 0 Discontinued chlorthalidone 25 mg tablet 25 mg PO DAILY RF: 0 Follow Up Plan Follow up with: Duane Antony MD [Physician] - Gio Charles MD [Physician] - Patient Disposition: Xfer SNF Prognosis: Undetermined Rehab Potential: Fair I certify that the patient requires SNF services: Yes Overall status at discharge: patient is progressing back to baseline QUALITY VTE Deep Vein Thrombosis/Pulmonary Embolism Present on Admission: No
[2020-10-11 14:33] LABS: Vancomycin,Random 14.5 ug/mL
[2020-10-11] MEDS: VANCOMYCIN 1,000 MG in 0.9 % SODIUM CHLORIDE 250 ML IV SCH (15:53)
[2020-10-11] MEDS: INSULIN GLARGINE, HUMAN 1 UNIT/0.01 ML SQ SCH (20:29)
[2020-10-11] MEDS: SENNOSIDES 1 TABLET PO SCH (20:30)
[2020-10-11] MEDS: DULoxetine 30 MG CAPSULE PO SCH (20:30)
[2020-10-11 20:32] LABS: Hematocrit 26.9 % (36.0-48.0); Hemoglobin 8.7 g/dL (12.0-15.0); Mean Cell Volume 102.3 fL (80.0-100.0); Mean Corpuscular HGB Conc 32.3 g/dL (31.0-36.0); Mean Platelet Volume 9.4 fL (7.4-10.4); Platelet Count 324 K/mcL (140-440); RBC 2.63 M/mcL (4.00-5.20); Red Cell Distribution Width 16.1 % (11.5-14.5); WBC 9.8 K/mcL (4.5-11.0)
[2020-10-11 22:34] LABS: Anisocytosis 1+ (None Seen); Band Neutrophils % 1 % (0-10); Eosinophils % (Manual) 4 % (0-7); Lymphocytes % 19 % (15-49); Macrocytosis 1+ (None Seen); Monocytes % (Manual) 5 % (1-12); Platelet Estimate NORMAL (Normal); RBC Morphology ABNORMAL (Normal); Segmented Neutrophils % 71 % (38-78)
[2020-10-12 03:41] LABS: Band Neutrophils % 1 % (0-10); Eosinophils % (Manual) 4 % (0-7); Lymphocytes % 17 % (15-49); Macrocytosis 1+ (None Seen); Metamyelocytes % 2 %; Monocytes % (Manual) 4 % (1-12); Myelocytes % 2 %; Platelet Estimate NORMAL (Normal); Polychromasia 1+ (None Seen); RBC Morphology ABNORMAL (Normal); Segmented Neutrophils % 70 % (38-78)
[2020-10-12] MEDS: 0.9 % SODIUM CHLORIDE 10 ML SYRINGE IV SCH ×5 (05:30→20:51)
[2020-10-12] MEDS: OMEPRAZOLE 20 MG CAPSULE PO SCH ×2 (06:48→17:03)
[2020-10-12] MEDS: HYDROcodone/APAP 10/325MG TABLET PO PRN ×2 (06:48→17:11)
[2020-10-12] MEDS: INSULIN LISPRO 1 UNIT/0.01 ML UNIT SQ SCH ×4 (06:51→20:43)
--- NOTE | 2020-10-12 08:02 | Internal Med Progress Note ---
SUBJECTIVE Subjective Patient information: Note initiated : 10/12/20 at 8:00 am Service Date, if different from initiated Date: [] Patient: Radha Martínez 75 y/o F admitted on 10/06/20 for Ankle Fracture. Chief Complaint: [] Interval history: Ms. 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 The patient was admitted to the OSH on 10/03, managed with IV antibiotics and after discussing the findings with Dr. Antony who performed the initial surgery at [facility], she was transferred to [facility] due to a staff shortage at [facility]. The hospital stay at [facility] was complicated by C diff colitis which was diagnosed on 10/05 and treated with oral Vancomycin. Per the available documents the hospital stay was otherwise uncomplicated. She arrived in stable condition and underwent surgery 10/07 with redo ORIF and removal of hardware. 10/07-ORIF today with revision ORIF, I&D, and removal of hardware, syndesomosis repair, cultures taken and pending. 10/08-stable, pain controlled with prn norco, resumed home lasix. ID consulted- on Vancomycin IV and Cefepime. 10/09-hgb trending down, received 1 unit RBC. PICC placed. 10/10-discharge planning for SNF. 10/11 Other than a headache. No new complaints. No overnight events. Cefepime changed to Rocephin per Dr. Charles. 10/12 Doing well. No overnight events or new complaints. Review of Systems: denies fever/chills/nausea/vomiting/chest or abdominal pain /cough/dyspnea/diarrhea. Otherwise see above. Constitutional Vitals: Vital Signs Temp Pulse Resp BP Pulse Ox 98.6 F 61 22 184/80 93 10/12/20 06:52 10/12/20 06:52 10/12/20 06:52 10/12/20 06:52 10/12/20 06:52 Period Temp Pulse Resp BP Sys/Krishna Pulse Ox Last 24 Hr 97.4 F-98.6 F 58-63 18-22 124-184/62-82 93-95 Intake and Output 10/11/20 10/12/20 10/12/20 21:59 05:59 13:59 Intake Total 800 350 Output Total 1 Balance 799 350 Weight 80.031 kg Intake & Output: Intake & Output 10/11/20 10/12/20 10/12/20 21:59 05:59 13:59 Intake Total 800 350 Output Total 1 Balance 799 350 Weight 80.031 kg Intake: Oral 800 350 Output: # of times incontinent of urine 1 Other: Stool Size Moderate Large Stool Color Brown Brown Stool Consistency Loose Loose # Voids 1 Exam: General: Alert, Awake, No acute Distress Eyes/N/T: EOMI, Head/Neck: neck supple, CV: RRR, No murmurs, Pulm: Clear b/l, no wheezing/rhonchi/rales Abd: soft, nontender, +BS x4 Ext: no clubbing/cyanosis/edema, right foot in dressings/splint Neuro: Alert, no focal deficits, moves all extremities, Skin: warm/dry OBJ DATA Labs CBC & Chem 7: 10/11/20 19:18 10/10/20 06:07 Labs: Abnormal Lab Results 10/11/20 10/11/20 10/10/20 19:18 04:30 08:29 RBC 2.63 L Hgb 8.7 L Hct 26.9 L MCV 102.3 H RDW 16.1 H RBC Morphology Abnormal A Abnormal A Polychromasia 1+ A Anisocytosis 1+ A Macrocytosis 1+ A 1+ A Creatinine Vancomycin Trough 20.1 H* 10/10/20 10/10/20 10/09/20 06:08 06:07 23:20 RBC 2.62 L Hgb 8.7 L 8.2 L Hct 26.9 L MCV 102.7 H RDW 16.7 H RBC Morphology Polychromasia Anisocytosis Macrocytosis Creatinine 1.3 H Vancomycin Trough 10/09/20 15:58 RBC Hgb 7.0 L* Hct MCV RDW RBC Morphology Polychromasia Anisocytosis Macrocytosis Creatinine Vancomycin Trough Meds: Medications Acetaminophen (Tylenol) 650 mg PO Q6HP PRN; Protocol PRN Reason: Per Pain Protocol/Fever > 101 Hydrocodone Bitart/Acetaminophen ([place] 10/325mg) 1 - 2 tab PO Q4HP PRN; Protocol PRN Reason: Per Pain Protocol Last Admin: 10/12/20 06:48 Dose: 1 tab Documented by: Albuterol Sulfate (Ventolin) 2.5 mg NEB Q2HP PRN PRN Reason: Shortness Of Breath Amiodarone HCl (Cordarone) 200 mg PO BIDCC [facility] Last Admin: 10/11/20 16:55 Dose: 200 mg Documented by: Aspirin (Aspirin) 81 mg CHEWED DAILY [facility] Last Admin: 10/11/20 08:44 Dose: 81 mg Documented by: Atorvastatin Calcium (Lipitor) 40 mg PO DAILY [facility] Last Admin: 10/11/20 08:43 Dose: 40 mg Documented by: Carvedilol (Coreg) 6.25 mg PO BIDCC [facility] Last Admin: 10/11/20 16:55 Dose: 6.25 mg Documented by: Ceftriaxone Sodium (Rocephin) 1 gm IV DAILY [facility]; Protocol Last Admin: 10/11/20 08:46 Dose: 1 gm Documented by: Dextrose (Dextrose 50%) 0 ml IV UD PRN PRN Reason: Hypoglycemia Diagnostic Test (Pha) (Accu-Chek) 1 each FS ACHS [facility] Last Admin: 10/12/20 06:51 Dose: 1 each Documented by: Docusate Sodium (Colace) 100 mg PO BID [facility] Last Admin: 10/11/20 20:30 Dose: 100 mg Documented by: Duloxetine HCl (Cymbalta) 30 mg PO HS [facility] Last Admin: 10/11/20 20:30 Dose: 30 mg Documented by: Furosemide (Lasix) 20 mg PO DAILY [facility] Last Admin: 10/11/20 08:42 Dose: 20 mg Documented by: Gabapentin (Neurontin) 400 mg PO DAILY [facility] Last Admin: 10/11/20 08:44 Dose: 400 mg Documented by: Glucose (Insta-Glucose) 15 gm PO PRN PRN PRN Reason: Hypoglycemia Guaifenesin/Codeine Phosphate (Robitussin Ac) 5 ml PO Q4HP PRN PRN Reason: Cough Heparin Sodium (Porcine) (Heparin) 5,000 unit SQ Q12 [facility] Last Admin: 10/11/20 20:30 Dose: 5,000 unit Documented by: Heparin Sodium (Porcine) (Heparin 10 Units/Ml Flush) 2 ml IV Q12 [facility] Last Admin: 10/11/20 20:31 Dose: 2 ml Documented by: Hydromorphone HCl (Dilaudid) 0.5 mg IV Q4HP PRN; Protocol PRN Reason: Per Pain Protocol Last Admin: 10/09/20 16:30 Dose: 0.5 mg Documented by: Vancomycin HCl 1,000 mg/ (Sodium Chloride) 250 mls @ 250 mls/hr IV Q48H [facility] Last Admin: 10/11/20 15:53 Dose: 250 mls/hr Documented by: Insulin Glargine (Lantus) 5 unit SQ [facility] Last Admin: 10/11/20 20:29 Dose: 5 units Documented by: Insulin Human Lispro (Humalog) 0 unit SQ ACHS [facility]; Protocol Last Admin: 10/12/20 06:51 Dose: Not Given Documented by: Isosorbide Dinitrate (Isordil) 10 mg PO TID [facility] Last Admin: 10/11/20 20:34 Dose: 10 mg Documented by: Nitroglycerin (Nitrostat) 0.4 mg SL Q5M PRN PRN Reason: Chest Pain Omeprazole (Prilosec) 20 mg PO BIDAC [facility] Last Admin: 10/12/20 06:48 Dose: 20 mg Documented by: Ondansetron HCl (Zofran) 4 mg IV Q6HP PRN PRN Reason: Nausea And Vomiting Effient 10 Mg Tablet 1 dose PO DAILY [facility] Last Admin: 10/11/20 08:51 Dose: Not Given Documented by: Incruse Ellipta 62.5 (Mcg Inhaler) 1 dose INH DAILY [facility] Last Admin: 10/11/20 08:51 Dose: Not Given Documented by: Budesonide- Formoterol [ Symbicort] 160 Mcg-4 .5 Mcg/Actuation Inhaler 2 dose INH BID [facility] Last Admin: 10/11/20 20:32 Dose: Not Given Documented by: Senna (Senokot) 2 tab PO [facility] Last Admin: 12/18/20 20:30 Dose: 2 tab Documented by: Sertraline HCl (Zoloft) 25 mg PO DAILY [facility] Last Admin: 10/11/20 08:43 Dose: 25 mg Documented by: Sodium Chloride (Saline Flush) 10 ml IV Q8 [facility] Last Admin: 10/12/20 05:30 Dose: Not Given Documented by: Sodium Chloride (Saline Flush) 10 ml IV UD PRN PRN Reason: FLUSH Sodium Chloride (Saline Flush) 10 ml IV Q12 [facility] Last Admin: 10/11/20 20:34 Dose: 10 ml Documented by: Vancomycin HCl (Vancomycin Oral Catie) 125 mg PO QID [facility]; Protocol Last Admin: 10/11/20 20:33 Dose: 125 mg Documented by: Vancomycin HCl (Vancomycin Per Pharmacy) 1 order IV UD [facility]; Protocol A/P Assessment and plan (1) Diabetes mellitus: Status: Acute (2) CKD (chronic kidney disease): Status: Acute Narrative A/P Narrative: A: *Right ankle fracture with Probable surgical site infection: -Had redo ORIF 10/07, hardware removed, cultures neg *Presumed osteomyelitis: *Acute on chronic anemia: received 1 unit RBC 10/09, no evidence of active bleeding at the surgical side or GI bleeding -on ASA and effient and heparin SQ, following hemoglobin post op, iron alena dies not consistent with iron deficiency *CAD s/p CRISTAL to OM placed 05/2020: continued on aspirin and effient perioperatively. Continue atorvastatin and nitro prn. *C diff colitis: *DM type II. *HFrEF - stable, *CKD III - stable, *COPD - *Paroxysmal atrial fibrillation - stable, *HTN: *Depression: continue Sertraline. *Hx of bladder and lung mass - details unclear however concerning for malignancy , recommend outpatient workup unless acute issues arise. P: -Ortho on case -ID consulted, IV Vancomycin/Rocephin. plan for 6 weeks IV abx. weekly labs while on IV abx. PICC placed -continue oral vancomycin until off IV abx -basal and SSI -on home lasix -on Coreg (increased) & nitrate for HFrEF, holding home Chlorthalidone for now & would avoid it indefinitely with CKD. -Continue home Incruse Ellipta and Symbicort and albuterol nebs prn. -currently not on anticoagulation, probably because of dual antiplatelet therapy. Continue home amiodarone. -CM for placement, awaiting -DVT prophylaxis: heparin SQ DNR Time Spent With Patient Time: Total time spent is greater than 50% in coordination of care (as documented) at patient's floor/unit and/or counseling patient: QUALITY VTE Deep Vein Thrombosis/Pulmonary Embolism Present on Admission: No
[2020-10-12] MEDS ORDERED: amLODIPine 5 MG TABLET PO SCH (09:00)
[2020-10-12] MEDS ORDERED: LABETALOL 5 MG/ML ML IV PRN (09:49)
[2020-10-12] MEDS: VANCOMYCIN ORAL SOL 1,000 MG/10 ML BOTTLE PO SCH ×4 (10:03→20:44)
[2020-10-12] MEDS: cefTRIAXone 1 GM VIAL IV SCH (10:03)
[2020-10-12] MEDS: GABAPENTIN 400 MG CAPSULE PO SCH (10:03)
[2020-10-12] MEDS: HEPARIN 5,000 UNIT/ML VIAL SQ SCH ×2 (10:03→20:43)
[2020-10-12] MEDS: ASPIRIN 81 MG TAB.CHEW CHEWED SCH (10:04)
[2020-10-12] MEDS: FUROSEMIDE 20 MG TABLET PO SCH (10:04)
[2020-10-12] MEDS: AMIODARONE HCL 200 MG TABLET PO SCH ×2 (10:04→17:03)
[2020-10-12] MEDS: ATORVASTATIN 40 MG TABLET PO SCH (10:04)
[2020-10-12] MEDS: CARVEDILOL 6.25 MG TABLET PO SCH ×2 (10:05→17:03)
[2020-10-12] MEDS: SERTRALINE 50 MG TABLET PO SCH (10:05)
[2020-10-12] MEDS: EFFIENT 10 MG PO SCH (10:07)
[2020-10-12] MEDS: ISOSORBIDE DINITRATE 10 MG TABLET PO SCH ×2 (10:07→15:46)
[2020-10-12] MEDS: BUDESONIDE INH SCH ×2 (10:07→20:16)
[2020-10-12] MEDS: INCRUSE ELLIPTA 62.5 MCG INH SCH (10:07)
[2020-10-12] MEDS: FORMOTEROL INH SCH ×2 (10:07→20:16)
[2020-10-12] MEDS: DOCUSATE SODIUM 100 MG CAPSULE PO SCH ×2 (10:08→20:15)
[2020-10-12] MEDS: ACETAMINOPHEN 325 MG TABLET PO PRN (19:38)
[2020-10-12] MEDS: DULoxetine 30 MG CAPSULE PO SCH (20:15)
[2020-10-12] MEDS: SENNOSIDES 1 TABLET PO SCH (20:16)
[2020-10-12] MEDS: INSULIN GLARGINE, HUMAN 1 UNIT/0.01 ML SQ SCH (20:44)
[2020-10-13] MEDS: HYDROcodone/APAP 10/325MG TABLET PO PRN ×3 (02:25→20:26)
[2020-10-13] MEDS: hydrALAZINE 20 MG/ML VIAL IV PRN (03:58)
[2020-10-13 06:25] LABS: Basophils # (Auto) 0.07 K/mcL (0.00-0.20); Basophils % (Auto) 0.7 % (0.0-2.0); Eosinophils # (Auto) 0.26 K/mcL (0.00-0.70); Eosinophils % (Auto) 2.7 % (0.0-7.0); Hematocrit 31.6 % (36.0-48.0); Hemoglobin 10.4 g/dL (12.0-15.0); Lymphocytes # (Auto) 1.99 K/mcL (1.50-4.80); Lymphocytes % (Auto) 20.5 % (15.0-49.0); Mean Cell Volume 100.6 fL (80.0-100.0); Mean Corpuscular HGB Conc 32.9 g/dL (31.0-36.0); Mean Platelet Volume 9.4 fL (7.4-10.4); Monocytes # (Auto) 0.49 K/mcL (0.10-0.90); Neutrophils % (Auto) 71.1 % (38.0-78.0); Platelet Count 387 K/mcL (140-440); RBC 3.14 M/mcL (4.00-5.20); Red Cell Distribution Width 16.1 % (11.5-14.5); WBC 9.7 K/mcL (4.5-11.0)
[2020-10-13] MEDS: OMEPRAZOLE 20 MG CAPSULE PO SCH ×2 (06:27→17:20)
[2020-10-13] MEDS: 0.9 % SODIUM CHLORIDE 10 ML SYRINGE IV SCH ×5 (06:30→20:25)
[2020-10-13 07:06] LABS: ALT/SGPT 9 U/L (<40); AST/SGOT 19 U/L (<32); Albumin 3.4 gm/dL (3.2-5.2); Alkaline Phosphatase 75 U/L (39-117); Bilirubin,Direct < 0.2 mg/dL (<0.3); Bilirubin,Total < 0.2 mg/dL (0.1-1.0); Blood Urea Nitrogen 18 mg/dL (8-23); Calcium 9.4 mg/dL (8.6-10.4); Carbon Dioxide 25 mmol/L (22-30); Chloride 100 mmol/L (96-108); Globulin 3.3 gm/dL (2.2-3.7); Glomerular Filtration Rate 32; Glucose 153 mg/dL (70-105); Lactate Dehydrogenase 231 U/L (135-225); Phosphorous 4.1 mg/dL (2.5-4.5); Triglycerides 237 mg/dL (<150); Uric Acid 6.7 mg/dL (2.5-8.0)
[2020-10-13] MEDS: INSULIN LISPRO 1 UNIT/0.01 ML UNIT SQ SCH ×4 (08:11→20:24)
[2020-10-13] MEDS: AMIODARONE HCL 200 MG TABLET PO SCH ×2 (08:11→17:20)
[2020-10-13] MEDS: FUROSEMIDE 20 MG TABLET PO SCH (08:12)
[2020-10-13] MEDS: ATORVASTATIN 40 MG TABLET PO SCH (08:12)
[2020-10-13] MEDS: CARVEDILOL 6.25 MG TABLET PO SCH ×2 (08:12→17:20)
[2020-10-13] MEDS: SERTRALINE 50 MG TABLET PO SCH (08:12)
[2020-10-13] MEDS: ASPIRIN 81 MG TAB.CHEW CHEWED SCH (08:12)
[2020-10-13] MEDS: GABAPENTIN 400 MG CAPSULE PO SCH (08:12)
[2020-10-13] MEDS: BUDESONIDE INH SCH ×2 (08:15→20:25)
[2020-10-13] MEDS: DOCUSATE SODIUM 100 MG CAPSULE PO SCH ×2 (08:15→19:59)
[2020-10-13] MEDS: FORMOTEROL INH SCH ×2 (08:15→20:25)
[2020-10-13] MEDS: EFFIENT 10 MG PO SCH (08:15)
[2020-10-13] MEDS: INCRUSE ELLIPTA 62.5 MCG INH SCH (08:15)
[2020-10-13] MEDS: VANCOMYCIN ORAL SOL 1,000 MG/10 ML BOTTLE PO SCH ×4 (08:15→20:27)
--- NOTE | 2020-10-13 08:20 | Internal Med Progress Note ---
SUBJECTIVE Subjective Patient information: Note initiated : 10/13/20 at 8:17 am Service Date, if different from initiated Date: [] Patient: Rahda Martínez 75 y/o F admitted on 10/06/20 for Ankle Fracture. Chief Complaint: [] Interval history: Ms. 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 by direct transfer from [facility] for a new displaced right fibular shaft fracture (at the site of recently placed hardware) as well as draining foot and ankle wounds concerning for an infected surgical site and possible underlying osteomyelitis. The patient was admitted to the OSH on 10/03, managed with IV antibiotics and after discussing the findings with Dr. Antony who performed the initial surgery at [facility], she was transferred to [facility] due to a staff shortage at [facility]. The hospital stay at [facility] was complicated by C diff colitis which was diagnosed on 10/05 and treated with oral Vancomycin. Per the available documents the hospital stay was otherwise uncomplicated. She arrived in stable condition and underwent surgery 10/07 with redo ORIF and removal of hardware. 10/07-ORIF today with revision ORIF, I&D, and removal of hardware, syndesomosis repair, cultures taken and pending. 10/08-stable, pain controlled with prn norco, resumed home lasix. ID consulted- on Vancomycin IV and Cefepime. 10/09-hgb trending down, received 1 unit RBC. PICC placed. 10/10-discharge planning for SNF. 10/11 Other than a headache. No new complaints. No overnight events. Cefepime changed to Rocephin per Dr. Charles. 10/12 Doing well. No overnight events or new complaints. 10/13 No overnight event or new complaints. Blood pressure typically been running high and so we have been titrating her blood pressure medications but then it dropped last night. Has been well since little bit on the higher side. Stop Norvasc, we will continue the Coreg at the increased dose Review of Systems: denies fever/chills/nausea/vomiting/chest or abdominal pain/c ough/dyspnea/diarrhea. Otherwise see above. Constitutional Vitals: Vital Signs Temp Pulse Resp BP Pulse Ox 98.1 F 70 16 144/72 95 10/13/20 06:35 10/13/20 06:35 10/13/20 06:35 10/13/20 06:35 10/13/20 06:35 Period Temp Pulse Resp BP Sys/Krishna Pulse Ox Last 24 Hr 97.8 F-98.5 F 64-73 16-22 93-176/47-96 93-97 Intake and Output 10/12/20 10/13/20 10/13/20 21:59 05:59 13:59 Intake Total 580 100 Output Total 2 4 Balance 578 96 Weight 74.344 kg Intake & Output: Intake & Output 10/12/20 10/13/20 10/13/20 21:59 05:59 13:59 Intake Total 580 100 Output Total 2 4 Balance 578 96 Weight 74.344 kg Intake: Oral 580 100 Output: Void Amount 0 # of times incontinent of urine 2 4 Other: Meal Dinner snack Percent of Meal Consumed 75% 100% Stool Size Small Moderate Stool Color Brown Brown Stool Consistency Loose Loose # Voids 1 # Bowel Movements 0 # of times incontinent of 1 1 Bowels Exam: General: Alert, Awake, No acute Distress Eyes/N/T: EOMI, Head/Neck: neck supple, CV: RRR, No murmurs, Pulm: Clear b/l, no wheezing/rhonchi/rales Abd: soft, nontender, +BS x4 Ext: no clubbing/cyanosis/edema, right foot in dressings/splint Neuro: Alert, no focal deficits, moves all extremities, Skin: warm/dry OBJ DATA Labs CBC & Chem 7: 10/13/20 05:42 10/13/20 05:41 Labs: Abnormal Lab Results 10/13/20 10/13/20 10/11/20 05:42 05:41 19:18 RBC 3.14 L 2.63 L Hgb 10.4 L 8.7 L Hct 31.6 L 26.9 L MCV 100.6 H 102.3 H RDW 16.1 H 16.1 H RBC Morphology Abnormal A Polychromasia Anisocytosis 1+ A Macrocytosis 1+ A Creatinine 1.6 H Glucose 153 H GGT 73 H Lactate Dehydrogenase 231 H Triglycerides 237 H Vancomycin Trough 10/11/20 10/10/20 04:30 08:29 RBC Hgb Hct MCV RDW RBC Morphology Abnormal A Polychromasia 1+ A Anisocytosis Macrocytosis 1+ A Creatinine Glucose GGT Lactate Dehydrogenase Triglycerides Vancomycin Trough 20.1 H* Meds: Medications Acetaminophen (Tylenol) 650 mg PO Q6HP PRN; Protocol PRN Reason: Per Pain Protocol/Fever > 101 Last Admin: 10/12/20 19:38 Dose: 650 mg Documented by: Hydrocodone Bitart/Acetaminophen ([place] 10/325mg) 1 - 2 tab PO Q4HP PRN; Protocol PRN Reason: Per Pain Protocol Last Admin: 10/13/20 06:26 Dose: 2 tab Documented by: Albuterol Sulfate (Ventolin) 2.5 mg NEB Q2HP PRN PRN Reason: Shortness Of Breath [facility] Last Admin: 10/13/20 08:11 Dose: 200 mg Documented by: Aspirin (Aspirin) 81 mg CHEWED DAILY [facility] Last Admin: 10/13/20 08:12 Dose: 81 mg Documented by: Atorvastatin Calcium (Lipitor) 40 mg PO DAILY [facility] Last Admin: 10/13/20 08:12 Dose: 40 mg Documented by: Carvedilol (Coreg) 6.25 mg PO BIDCC [facility] Last Admin: 10/13/20 08:12 Dose: 6.25 mg Documented by: Ceftriaxone Sodium (Rocephin) 1 gm IV DAILY [facility]; Protocol Last Admin: 10/12/20 10:03 Dose: 1 gm Documented by: Dextrose (Dextrose 50%) 0 ml IV UD PRN PRN Reason: Hypoglycemia Diagnostic Test (Pha) (Accu-Chek) 1 each FS ACHS [facility] Last Admin: 10/13/20 07:38 Dose: 1 each Documented by: Docusate Sodium (Colace) 100 mg PO BID [facility] Last Admin: 10/13/20 08:15 Dose: Not Given Documented by: Duloxetine HCl (Cymbalta) 30 mg PO HS [facility] Last Admin: 10/12/20 20:15 Dose: 30 mg Documented by: Furosemide (Lasix) 20 mg PO DAILY [facility] Last Admin: 10/13/20 08:12 Dose: 20 mg Documented by: Gabapentin (Neurontin) 400 mg PO DAILY [facility] Last Admin: 10/13/20 08:12 Dose: 400 mg Documented by: Glucose (Insta-Glucose) 15 gm PO PRN PRN PRN Reason: Hypoglycemia Guaifenesin/Codeine Phosphate (Robitussin Ac) 5 ml PO Q4HP PRN PRN Reason: Cough Heparin Sodium (Porcine) (Heparin) 5,000 unit SQ Q12 [facility] Last Admin: 10/12/20 20:43 Dose: 5,000 unit Documented by: Heparin Sodium (Porcine) (Heparin 10 Units/Ml Flush) 2 ml IV Q12 [facility] Last Admin: 10/12/20 20:15 Dose: 2 ml Documented by: Hydralazine HCl (Apresoline) 0 mg IV Q2HP PRN PRN Reason: Hypertension Last Admin: 10/13/20 03:58 Dose: 20 mg Documented by: Hydromorphone HCl (Dilaudid) 0.5 mg IV Q4HP PRN; Protocol PRN Reason: Per Pain Protocol Last Admin: 10/09/20 16:30 Dose: 0.5 mg Documented by: Vancomycin HCl 1,000 mg/ (Sodium Chloride) 250 mls @ 250 mls/hr IV Q48H [facility] Last Infusion: 10/11/20 16:53 Dose: Infused Documented by: Insulin Glargine (Lantus) 5 unit SQ HS [facility] Last Admin: 10/12/20 20:44 Dose: 5 units Documented by: Insulin Human Lispro (Humalog) 0 unit SQ ACHS [facility]; Protocol Last Admin: 10/13/20 08:11 Dose: 1 units Documented by: Labetalol HCl (Trandate) 0 mg IV Q2HP PRN PRN Reason: Hypertension Nitroglycerin (Nitrostat) 0.4 mg SL Q5M PRN PRN Reason: Chest Pain Omeprazole (Prilosec) 20 mg PO BIDAC [facility] Last Admin: 10/13/20 06:27 Dose: 20 mg Documented by: Ondansetron HCl (Zofran) 4 mg IV Q6HP PRN PRN Reason: Nausea And Vomiting Effient 10 Mg Tablet 1 dose PO DAILY [facility] Last Admin: 10/13/20 08:15 Dose: Not Given Documented by: Incruse Ellipta 62.5 (Mcg Inhaler) 1 dose INH DAILY [facility] Last Admin: 10/13/20 08:15 Dose: Not Given Documented by: Budesonide- Formoterol [ Symbicort] 160 Mcg-4 .5 Mcg/Actuation Inhaler 2 dose INH BID [facility] Last Admin: 10/13/20 08:15 Dose: Not Given Documented by: Senna (Senokot) 2 tab PO HS [facility] Last Admin: 10/12/20 20:16 Dose: Not Given Documented by: Sertraline HCl (Zoloft) 25 mg PO DAILY [facility] Last Admin: 10/13/20 08:12 Dose: 25 mg Documented by: Sodium Chloride (Saline Flush) 10 ml IV Q8 [facility] Last Admin: 10/13/20 06:30 Dose: 10 ml Documented by: Sodium Chloride (Saline Flush) 10 ml IV UD PRN PRN Reason: FLUSH Sodium Chloride (Saline Flush) 10 ml IV Q12 [facility] Last Admin: 10/12/20 20:51 Dose: 10 ml Documented by: Vancomycin HCl (Vancomycin Oral Catie) 125 mg PO QID [facility]; Protocol Last Admin: 10/13/20 08:15 Dose: 125 mg Documented by: Vancomycin HCl (Vancomycin Per Pharmacy) 1 order IV UD [facility]; Protocol A/P Narrative A/P Narrative: A: *Right ankle fracture with Probable surgical site infection: -Had redo ORIF 10/07, hardware removed, cultures neg *Presumed osteomyelitis: *Acute on chronic anemia: received 1 unit RBC 10/09, no evidence of active bleeding at the surgical side or GI bleeding -on ASA and effient and heparin SQ, following hemoglobin post op, iron studies not consistent with iron deficiency *CAD s/p CRISTAL to OM placed 05/2020: continued on aspirin and effient perioperatively. Continue atorvastatin and nitro prn. *C diff colitis: *DM type II. *HFrEF - stable, *CKD III - stable, *COPD - *Paroxysmal atrial fibrillation - stable, *HTN: mostly HTN but labile, started norvasc and had increased coreg but then had bp drop,stopped norvasc *Depression: continue Sertraline. *Hx of bladder and lung mass - details unclear however concerning for malignancy, recommend outpatient workup unless acute issues arise. P: -Ortho on case -ID consulted, IV Vancomycin/Rocephin. plan for 6 weeks IV abx. weekly labs wh ile on IV abx. PICC placed -continue oral vancomycin until off IV abx -basal and SSI -on home lasix -on Coreg (increased) & nitrate for HFrEF, holding home Chlorthalidone for now & would avoid it indefinitely with CKD. -Continue home Incruse Ellipta and Symbicort and albuterol nebs prn. -currently not on anticoagulation, probably because of dual antiplatelet therapy. Continue home amiodarone. -CM for placement, awaiting -DVT prophylaxis: heparin SQ DNR Time Spent With Patient Time: Total time spent is greater than 50% in coordination of care (as documented) at patient's floor/unit and/or counseling patient: QUALITY VTE Deep Vein Thrombosis/Pulmonary Embolism Present on Admission: No
[2020-10-13] MEDS: VANCOMYCIN 1,000 MG in 0.9 % SODIUM CHLORIDE 250 ML IV SCH (09:16)
[2020-10-13] MEDS: cefTRIAXone 1 GM VIAL IV SCH (09:39)
[2020-10-13] MEDS: HEPARIN 5,000 UNIT/ML VIAL SQ SCH ×2 (09:39→20:24)
[2020-10-13] MEDS: ISOSORBIDE DINITRATE 10 MG TABLET PO SCH ×3 (09:39→20:26)
[2020-10-13] MEDS: VANCOMYCIN 1,500 MG in 0.9 % SODIUM CHLORIDE 500 ML IV SCH (09:40)
[2020-10-13] MEDS: SENNOSIDES 1 TABLET PO SCH (19:59)
[2020-10-13] MEDS: INSULIN GLARGINE, HUMAN 1 UNIT/0.01 ML SQ SCH (20:24)
[2020-10-13] MEDS: DULoxetine 30 MG CAPSULE PO SCH (20:27)
[2020-10-14] MEDS: 0.9 % SODIUM CHLORIDE 10 ML SYRINGE IV SCH ×5 (06:36→20:51)
[2020-10-14] MEDS: INSULIN LISPRO 1 UNIT/0.01 ML UNIT SQ SCH ×4 (07:05→21:16)
[2020-10-14] MEDS: OMEPRAZOLE 20 MG CAPSULE PO SCH ×2 (08:20→17:40)
[2020-10-14] MEDS: AMIODARONE HCL 200 MG TABLET PO SCH ×2 (08:20→17:40)
[2020-10-14] MEDS: CARVEDILOL 6.25 MG TABLET PO SCH ×2 (08:20→17:40)
[2020-10-14] MEDS: hydrALAZINE 20 MG/ML VIAL IV PRN (08:24)
[2020-10-14] MEDS ORDERED: amLODIPine 5 MG TABLET PO ONE (10:08)
--- NOTE | 2020-10-14 10:08 | Internal Med Progress Note ---
SUBJECTIVE Subjective Patient information: Note initiated : 10/14/20 at 10:06 am Service Date, if different from initiated Date: [] Patient: Radha Martínez 75 y/o F admitted on 10/06/20 for Ankle Fracture. Chief Complaint: [] Interval history: Ms. Martínez is a 75 year old female with an extensive past medical history including CAD status post CRISTAL to OM 05/2020 (on ASA and Effient), HFrEF (LVEF 20%), COPD, Diabetes mellitus type II, afib (currently off anticoagulation), CKD III, previous smoker (quite one month ago), bladder and lung mass of unknown etiology, recent ankle fracture s/p ORIF who came to [facility] by direct transfer from [facility] for a new displaced right fibular shaft fracture (at the site of recently placed hardware) as well as draining foot and ankle wounds concerning for an infected surgical site and possible underlying osteomyelitis. The patient was admitted to the OSH on 10/03, managed with IV antibiotics and after discussing the findings with Dr. Antony who performed the initial surgery at [facility], she was transferred to [facility] due to a staff shortage at [facility]. The hospital stay at [facility] was complicated by C diff colitis which was diagnosed on 10/05 and treated with oral Vancomycin. Per the available documents the hospital stay was otherwise uncomplicated. She arrived in stable condition and underwent surgery 10/07 with redo ORIF and removal of hardware. 10/07-ORIF today with revision ORIF, I&D, and removal of hardware, syndesomosis repair, cultures taken and pending. 10/08-stable, pain controlled with prn norco, resumed home lasix. ID consulted- on Vancomycin IV and Cefepime. 10/09-hgb trending down, received 1 unit RBC. PICC placed. 10/10-discharge planning for SNF. 10/11 Other than a headache. No new complaints. No overnight events. Cefepime changed to Rocephin per Dr. Charles. 10/12 Doing well. No overnight events or new complaints. 10/13 No overnight event or new complaints. Blood pressure typically been running high and so we have been titrating her blood pressure medications but then it dropped last night. Has been well since little bit on the higher side. Stop Norvasc, we will continue the Coreg at the increased dose 10/14 No change in status. No overnight events. Blood pressures labile. Awaiting placement. Review of Systems: denies fever/chills/nausea/vomiting/chest or abdominal pain/coug h/dyspnea/diarrhea. Otherwise see above. Constitutional Vitals: Vital Signs Temp Pulse Resp BP Pulse Ox 99.2 F H 67 20 181/87 92 10/14/20 07:50 10/14/20 07:50 10/14/20 07:50 10/14/20 07:50 10/14/20 07:50 Period Temp Pulse Resp BP Sys/Krishna Pulse Ox Last 24 Hr 97.5 F-99.3 F 57-67 18-22 116-181/64-87 92-96 Intake and Output 10/13/20 10/14/20 10/14/20 21:59 05:59 13:59 Intake Total 960 800 Output Total 2 3 Balance 958 797 Weight 80.331 kg Intake & Output: Intake & Output 10/13/20 10/14/20 10/14/20 21:59 05:59 13:59 Intake Total 960 800 Output Total 2 3 Balance 958 797 Weight 80.331 kg Intake: Oral 960 800 Output: # of times incontinent of urine 2 3 Other: Meal Lunch Percent of Meal Consumed 100% Feeding Ability Independent Urine Color Bright Yellow Stool Size Small Moderate Smear Stool Color Brown Brown Brown Stool Consistency Soft Liquid Soft Loose Loose # Bowel Movements 2 # of times incontinent of 1 1 1 Bowels Exam: General: Alert, Awake, No acute Distress Eyes/N/T: EOMI, Head/Neck: neck supple, CV: RRR, No murmurs, Pulm: Clear b/l, no wheezing/rhonchi/rales Abd: soft, nontender, +BS x4 Ext: no clubbing/cyanosis/edema, right foot in dressings/splint Neuro: Alert, no focal deficits, moves all extremities, Skin: warm/dry OBJ DATA Labs CBC & Chem 7: 10/13/20 05:42 10/13/20 05:41 Labs: Abnormal Lab Results 10/13/20 10/13/20 10/11/20 05:42 05:41 19:18 RBC 3.14 L 2.63 L Hgb 10.4 L 8.7 L Hct 31.6 L 26.9 L MCV 100.6 H 102.3 H RDW 16.1 H 16.1 H RBC Morphology Abnormal A Polychromasia Anisocytosis 1+ A Macrocytosis 1+ A Creatinine 1.6 H Glucose 153 H GGT 73 H Lactate Dehydrogenase 231 H Triglycerides 237 H 10/11/20 04:30 RBC Hgb Hct MCV RDW RBC Morphology Abnormal A Polychromasia 1+ A Anisocytosis Macrocytosis 1+ A Creatinine Glucose GGT Lactate Dehydrogenase Triglycerides Meds: Medications Acetaminophen (Tylenol) 650 mg PO Q6HP PRN; Protocol PRN Reason: Per Pain Protocol/Fever > 101 Last Admin: 10/12/20 19:38 Dose: 650 mg Documented by: Hydrocodone Bitart/Acetaminophen ([place] 10/325mg) 1 - 2 tab PO Q4HP PRN; Protocol PRN Reason: Per Pain Protocol Last Admin: 10/13/20 20:26 Dose: 1 tab Documented by: Albuterol Sulfate (Ventolin) 2.5 mg NEB Q2HP PRN PRN Reason: Shortness Of Breath [facility]iodarone [facility] ([facility]) [address] [facility] Last Admin: 10/14/20 08:20 Dose: 200 mg Documented by: Aspirin (Aspirin) 81 mg CHEWED DAILY [facility] Last Admin: 10/13/20 08:12 Dose: 81 mg Documented by: Atorvastatin Calcium (Lipitor) 40 mg PO DAILY [facility] Last Admin: 10/13/20 08:12 Dose: 40 mg Documented by: Carvedilol (Coreg) [facility] [facility] Last Admin: 10/14/20 08:20 Dose: 6.25 mg Documented by: Ceftriaxone Sodium (Rocephin) 1 gm IV DAILY [facility]; Protocol Last Admin: 10/13/20 09:39 Dose: 1 gm Documented by: Dextrose (Dextrose 50%) 0 ml IV UD PRN PRN Reason: Hypoglycemia Diagnostic Test (Pha) (Accu-Chek) 1 each FS ACHS [facility] Last Admin: 10/14/20 07:03 Dose: 1 each Documented by: Docusate Sodium (Colace) 100 mg PO BID [facility] Last Admin: 10/13/20 19:59 Dose: Not Given Documented by: Duloxetine HCl (Cymbalta) 30 mg PO [facility] Last Admin: 10/13/20 20:27 Dose: 30 mg Documented by: Furosemide (Lasix) 20 mg PO DAILY [facility] Last Admin: 10/13/20 08:12 Dose: 20 mg Documented by: Gabapentin (Neurontin) 400 mg PO DAILY [facility] Last Admin: 10/13/20 08:12 Dose: 400 mg Documented by: Glucose (Insta-Glucose) 15 gm PO PRN PRN PRN Reason: Hypoglycemia Guaifenesin/Codeine Phosphate (Robitussin Ac) 5 ml PO Q4HP PRN PRN Reason: Cough Heparin Sodium (Porcine) (Heparin) 5,000 unit SQ Q12 [facility] Last Admin: 10/13/20 20:24 Dose: 5,000 unit Documented by: Heparin Sodium (Porcine) (Heparin 10 Units/Ml Flush) 2 ml IV Q12 [facility] Last Admin: 10/13/20 20:25 Dose: 2 ml Documented by: Hydralazine HCl (Apresoline) 0 mg IV Q2HP PRN PRN Reason: Hypertension Last Admin: 10/14/20 08:24 Dose: 20 mg Documented by: Hydromorphone HCl (Dilaudid) 0.5 mg IV Q4HP PRN; Protocol PRN Reason: Per Pain Protocol Last Admin: 10/09/20 16:30 Dose: 0.5 mg Documented by: Vancomycin HCl 1,500 mg/ (Sodium Chloride) 500 mls @ 333.3 mls/hr IV Q48H [facility] Last Admin: 10/13/20 09:40 Dose: 333.3 mls/hr Documented by: Insulin Glargine (Lantus) 5 unit SQ HS [facility] Last Admin: 10/13/20 20:24 Dose: 5 units Documented by: Insulin Human Lispro (Humalog) 0 unit SQ ACHS [facility]; Protocol Last Admin: 10/14/20 07:05 Dose: Not Given Documented by: Isosorbide Dinitrate (Isordil) 10 mg PO TID [facility] Last Admin: 10/13/20 20:26 Dose: 10 mg Documented by: Labetalol HCl (Trandate) 0 mg IV Q2HP PRN PRN Reason: Hypertension Nitroglycerin (Nitrostat) 0.4 mg SL Q5M PRN PRN Reason: Chest Pain Omeprazole (Prilosec) 20 mg PO BIDAC [facility] Last Admin: 10/14/20 08:20 Dose: 20 mg Documented by: Ondansetron HCl (Zofran) 4 mg IV Q6HP PRN PRN Reason: Nausea And Vomiting Effient 10 Mg Tablet 1 dose PO DAILY [facility] Last Admin: 10/13/20 08:15 Dose: Not Given Documented by: Incruse Ellipta 62.5 (Mcg Inhaler) 1 dose INH DAILY [facility] Last Admin: 10/13/20 08:15 Dose: Not Given Documented by: Budesonide- Formoterol [ Symbicort] 160 Mcg-4 .5 Mcg/Actuation Inhaler 2 dose INH BID [facility] Last Admin: 10/13/20 20:25 Dose: Not Given Documented by: Senna (Senokot) 2 tab PO HS [facility] Last Admin: 10/13/20 19:59 Dose: Not Given Documented by: Sertraline HCl (Zoloft) 25 mg PO DAILY [facility] Last Admin: 10/13/20 08:12 Dose: 25 mg Documented by: Sodium Chloride (Saline Flush) 10 ml IV Q8 [facility] Last Admin: 10/14/20 06:36 Dose: Not Given Documented by: Sodium Chloride (Saline Flush) 10 ml IV UD PRN PRN Reason: FLUSH Sodium Chloride (Saline Flush) 10 ml IV Q12 [facility] Last Admin: 10/13/20 20:25 Dose: 10 ml Documented by: Vancomycin HCl (Vancomycin Oral Catie) 125 mg PO QID [facility]; Protocol Last Admin: 10/13/20 20:27 Dose: 125 mg Documented by: Vancomycin HCl (Vancomycin Per Pharmacy) 1 order IV UD [facility]; Protocol A/P Assessment and plan (1) Diabetes mellitus: Status: Acute (2) CKD (chronic kidney disease): Status: Acute Narrative A/P Narrative: A: *Right ankle fracture with Probable surgical site infection: -Had redo ORIF 10/07, hardware removed, cultures neg *Presumed osteomyelitis: *Acute on chronic anemia: received 1 unit RBC 10/09, no evidence of active bleeding at the surgical side or GI bleeding -on ASA and effient and heparin SQ, following hemoglobin post op, iron studies not consistent with iron deficiency *CAD s/p CRISTAL to OM placed 05/2020: continued on aspirin and effient perioperatively. Continue atorvastatin and nitro prn. *C diff colitis: *DM type II. *HFrEF - stable, *CKD III - stable, *COPD - *Paroxysmal atrial fibrillation - stable, *HTN: mostly HTN but labile, started norvasc and had increased coreg but then had bp drop,stopped norvasc *Depression: continue Sertraline. *Hx of bladder CA (no lung mass on last two chest xrays) - details unclear however concerning for malignancy, being worked up outpt by urology per recent [facility] notes P: -Ortho -ID consulted, IV Vancomycin/Rocephin. plan for 6 weeks IV abx. weekly labs while on IV abx. PICC placed -continue oral vancomycin until off IV abx -basal and SSI -on home lasix -on Coreg (increased) & nitrate for HFrEF, holding home Chlorthalidone for now & would avoid it indefinitely with CKD. -Continue home Incruse Ellipta and Symbicort and albuterol nebs prn. -currently not on anticoagulation, probably because of dual antiplatelet the rapy. Continue home amiodarone. -CM for placement, awaiting -DVT prophylaxis: heparin SQ DNR Time Spent With Patient Time: Total time spent is greater than 50% in coordination of care (as documented) at patient's floor/unit and/or counseling patient: QUALITY VTE Deep Vein Thrombosis/Pulmonary Embolism Present on Admission: No
[2020-10-14] MEDS: DOCUSATE SODIUM 100 MG CAPSULE PO SCH ×2 (10:57→21:05)
[2020-10-14] MEDS: FUROSEMIDE 20 MG TABLET PO SCH (11:08)
[2020-10-14] MEDS: GABAPENTIN 400 MG CAPSULE PO SCH (11:08)
[2020-10-14] MEDS: ATORVASTATIN 40 MG TABLET PO SCH (11:08)
[2020-10-14] MEDS: ASPIRIN 81 MG TAB.CHEW CHEWED SCH (11:10)
[2020-10-14] MEDS: SERTRALINE 50 MG TABLET PO SCH (11:10)
[2020-10-14] MEDS: EFFIENT 10 MG PO SCH (11:11)
[2020-10-14] MEDS: BUDESONIDE INH SCH ×2 (11:12→21:05)
[2020-10-14] MEDS: INCRUSE ELLIPTA 62.5 MCG INH SCH (11:12)
[2020-10-14] MEDS: FORMOTEROL INH SCH ×2 (11:12→21:05)
[2020-10-14] MEDS: cefTRIAXone 1 GM VIAL IV SCH (11:14)
[2020-10-14] MEDS: ISOSORBIDE DINITRATE 10 MG TABLET PO SCH ×3 (11:17→21:16)
[2020-10-14] MEDS: HEPARIN 5,000 UNIT/ML VIAL SQ SCH ×2 (11:20→20:50)
[2020-10-14] MEDS: VANCOMYCIN ORAL SOL 1,000 MG/10 ML BOTTLE PO SCH ×4 (11:21→21:02)
[2020-10-14] MEDS: HYDROcodone/APAP 10/325MG TABLET PO PRN (11:37)
[2020-10-14] MEDS: DULoxetine 30 MG CAPSULE PO SCH (20:51)
[2020-10-14] MEDS: SENNOSIDES 1 TABLET PO SCH (21:05)
[2020-10-14] MEDS: INSULIN GLARGINE, HUMAN 1 UNIT/0.01 ML SQ SCH (21:16)
[2020-10-15] MEDS: 0.9 % SODIUM CHLORIDE 10 ML SYRINGE IV SCH ×4 (05:15→20:52)
[2020-10-15] MEDS: ACETAMINOPHEN 325 MG TABLET PO PRN (06:46)
--- NOTE | 2020-10-15 07:44 | Internal Med Progress Note ---
SUBJECTIVE Subjective Patient information: Note initiated : 10/15/20 at 7:43 am Service Date, if different from initiated Date: [] Patient: Radha Martínez 75 y/o F admitted on 10/06/20 for Ankle Fracture. Chief Complaint: [] Interval history: Ms. Martínez is a 75 year old female with an extensive past medical history including CAD status post CRISTAL to OM 05/2020 (on ASA and Effient), HFrEF (LVEF 20%), COPD, Diabetes mellitus type II, afib (currently off anticoagulation), CKD III, previous smoker (quite one month ago), bladder and lung mass of unknown etiology, recent ankle fracture s/p ORIF who came to [facility] by direct transfer from [facility] for a new displaced right fibular shaft fracture (at the site of recently placed hardware) as well as draining foot and ankle wounds concerning for an infected surgical site and possible underlying osteomyelitis. The patient was admitted to the OSH on 10/03, managed with IV antibiotics and after discussing the findings with Dr. Antony who performed the initial surgery at [facility], she was transferred to [facility] due to a staff shortage at [facility]. The hospital stay at [facility] was complicated by C diff colitis which was diagnosed on 10/05 and treated with oral Vancomycin. Per the available documents the hospital stay was otherwise uncomplicated. She arrived in stable condition and underwent surgery 10/07 with redo ORIF and removal of hardware. 10/07-ORIF today with revision ORIF, I&D, and removal of hardware, syndesomosis repair, cultures taken and pending. 10/08-stable, pain controlled with prn norco, resumed home lasix. ID consulted- on Vancomycin IV and Cefepime. 10/09-hgb trending down, received 1 unit RBC. PICC placed. 10/10-discharge planning for SNF. 10/11 Other than a headache. No new complaints. No overnight events. Cefepime changed to Rocephin per Dr. Charles. 10/12 Doing well. No overnight events or new complaints. 10/13 No overnight event or new complaints. Blood pressure typically been running high and so we have been titrating her blood pressure medications but then it dropped last night. Has been well since little bit on the higher side. Stop Norvasc, we will continue the Coreg at the increased dose 10/14 No change in status. No overnight events. Blood pressures labile. Awaiting placement. 10/15 Has some nausea this morning and some abdominal bloating. But does have bowel movements. No other new complaints or overnight events. Review of Systems: denies fever/chills/nausea/vomiting/chest pain/cough/dyspnea/diarrhea. Otherwise see above. Constitutional Vitals: Vital Signs Temp Pulse Resp BP Pulse Ox 98.9 F 59 L 20 159/76 97 10/15/20 04:26 10/15/20 04:26 10/15/20 04:26 10/15/20 06:06 10/15/20 04:26 Period Temp Pulse Resp BP Sys/Krishna Pulse Ox Last 24 Hr 97.7 F-99.2 F 59-71 16- 113-181/62-87 92-97 Intake and Output 10/14/20 10/15/20 10/15/20 21:59 05:59 13:59 Intake Total 1280 325 Output Total 2 Balance 1278 325 Weight 79.152 kg Intake & Output: Intake & Output 10/14/20 10/15/20 10/15/20 21:59 05:59 13:59 Intake Total 1280 325 Output Total 2 Balance 1278 325 Weight 79.152 kg Intake: Nourishment/Supplement quantity 120 (ml) IV 500 Vancomycin 1,500 mg In Sodium 500 Chloride 0.9% 500 ml @ 333.3 mls/hr IV Q48H [facility] Rx#: [id number] Oral 660 325 Output: # of times incontinent of urine 2 Other: Meal Dinner Percent of Meal Consumed 100% Feeding Ability Independent Nourishment/Supplement name Arnulfo spenceke Urine Odor Normal Exam: General: Alert, Awake, No acute Distress Eyes/N/T: EOMI, Head/Neck: neck supple, CV: RRR, No murmurs, Pulm: Clear b/l, no wheezing/rhonchi/rales Abd: soft, nontender, +BS x4 Ext: no clubbing/cyanosis/edema, right foot in dressings/splint Neuro: Alert, no focal deficits, moves all extremities, Skin: warm/dry OBJ DATA Labs CBC & Chem 7: 10/13/20 05:42 10/13/20 05:41 Labs: Abnormal Lab Results 10/13/20 10/13/20 05:42 05:41 RBC 3.14 L Hgb 10.4 L Hct 31.6 L MCV 100.6 H RDW 16.1 H Creatinine 1.6 H Glucose 153 H GGT 73 H Lactate Dehydrogenase 231 H Triglycerides 237 H Meds: Medications Acetaminophen (Tylenol) 650 mg PO Q6HP PRN; Protocol PRN Reason: Per Pain Protocol/Fever > 101 Last Admin: 10/15/20 06:46 Dose: 650 mg Documented by: Hydrocodone Bitart/Acetaminophen ([place] 10/325mg) 1 - 2 tab PO Q4HP PRN; Protocol PRN Reason: Per Pain Protocol Last Admin: 10/14/20 11:37 Dose: 1 tab Documented by: Albuterol Sulfate (Ventolin) 2.5 mg NEB Q2HP PRN PRN Reason: Shortness Of Breath [facility] Last Admin: 10/14/20 17:40 Dose: 200 mg Documented by: Aspirin (Aspirin) 81 mg CHEWED DAILY [facility] Last Admin: 10/14/20 11:10 Dose: 81 mg Documented by: Atorvastatin Calcium (Lipitor) 40 mg PO DAILY [facility] Last Admin: 10/14/20 11:08 Dose: 40 mg Documented by: [facility] ([facility]g) [facility] Last Admin: 10/14/20 17:40 Dose: 6.25 mg Documented by: Ceftriaxone Sodium (Rocephin) 1 gm IV DAILY [facility]; Protocol Last Admin: 10/14/20 11:14 Dose: 1 gm Documented by: Dextrose (Dextrose 50%) 0 ml IV UD PRN PRN Reason: Hypoglycemia Diagnostic Test (Pha) (Accu-Chek) 1 each FS ACHS [facility] Last Admin: 10/14/20 21:01 Dose: 1 each Documented by: Docusate Sodium (Colace) 100 mg PO BID [facility] Last Admin: 10/14/20 21:05 Dose: Not Given Documented by: Duloxetine HCl (Cymbalta) 30 mg PO HS [facility] Last Admin: 10/14/20 20:51 Dose: 30 mg Documented by: Furosemide (Lasix) 20 mg PO DAILY [facility] Last Admin: 10/14/20 11:08 Dose: 20 mg Documented by: Gabapentin (Neurontin) 400 mg PO DAILY [facility] Last Admin: 10/14/20 11:08 Dose: 400 mg Documented by: Glucose (Insta-Glucose) 15 gm PO PRN PRN PRN Reason: Hypoglycemia Guaifenesin/Codeine Phosphate (Robitussin Ac) 5 ml PO Q4HP PRN PRN Reason: Cough Heparin Sodium (Porcine) (Heparin) 5,000 unit SQ Q12 [facility] Last Admin: 10/14/20 20:50 Dose: 5,000 unit Documented by: Heparin Sodium (Porcine) (Heparin 10 Units/Ml Flush) 2 ml IV Q12 [facility] Last Admin: 10/14/20 20:51 Dose: 2 ml Documented by: Hydralazine HCl (Apresoline) 0 mg IV Q2HP PRN PRN Reason: Hypertension Last Admin: 10/14/20 08:24 Dose: 20 mg Documented by: Hydromorphone HCl (Dilaudid) 0.5 mg IV Q4HP PRN; Protocol PRN Reason: Per Pain Protocol Last Admin: 10/09/20 16:30 Dose: 0.5 mg Documented by: Vancomycin HCl 1,500 mg/ (Sodium Chloride) 500 mls @ 333.3 mls/hr IV Q48H [facility] Last Infusion: 10/14/20 19:50 Dose: Infused Documented by: Insulin Glargine (Lantus) 5 unit SQ HS [facility] Last Admin: 10/14/20 21:16 Dose: 5 units Documented by: Insulin Human Lispro (Humalog) 0 unit SQ ACHS [facility]; Protocol Last Admin: 10/14/20 21:16 Dose: 1 units Documented by: Isosorbide Dinitrate (Isordil) 10 mg PO TID [facility] Last Admin: 10/14/20 21:16 Dose: 10 mg Documented by: Labetalol HCl (Trandate) 0 mg IV Q2HP PRN PRN Reason: Hypertension Last Admin: 10/15/20 04:56 Dose: 10 mg Documented by: Nitroglycerin (Nitrostat) 0.4 mg SL Q5M PRN PRN Reason: Chest Pain Omeprazole (Prilosec) 20 mg PO BIDAC [facility] Last Admin: 10/14/20 17:40 Dose: 20 mg Documented by: Ondansetron HCl (Zofran) 4 mg IV Q6HP PRN PRN Reason: Nausea And Vomiting Last Admin: 10/15/20 06:45 Dose: 4 mg Documented by: Effient 10 Mg Tablet 1 dose PO DAILY [facility] Last Admin: 10/14/20 11:11 Dose: Not Given Documented by: Incruse Ellipta 62.5 (Mcg Inhaler) 1 dose INH DAILY [facility] Last Admin: 10/14/20 11:12 Dose: Not Given Documented by: Budesonide- Formoterol [ Symbicort] 160 Mcg-4 .5 Mcg/Actuation Inhaler 2 dose INH BID [facility] Last Admin: 10/14/20 21:05 Dose: Not Given Documented by: Senna (Senokot) 2 tab PO HS [facility] Last Admin: 10/14/20 21:05 Dose: Not Given Documented by: Sertraline HCl (Zoloft) 25 mg PO DAILY [facility] Last Admin: 10/14/20 11:10 Dose: 25 mg Documented by: Sodium Chloride (Saline Flush) 10 ml IV Q8 [facility] Last Admin: 10/15/20 05:15 Dose: 10 ml Documented by: Sodium Chloride (Saline Flush) 10 ml IV UD PRN PRN Reason: FLUSH Sodium Chloride (Saline Flush) 10 ml IV Q12 [facility] Last Admin: 10/14/20 20:51 Dose: 10 ml Documented by: Vancomycin HCl (Vancomycin Oral Catie) 125 mg PO QID [facility]; Protocol Last Admin: 10/14/20 21:02 Dose: 125 mg Documented by: Vancomycin HCl (Vancomycin Per Pharmacy) 1 order IV UD [facility]; Protocol A/P Narrative A/P Narrative: A: *Right ankle fracture with Probable surgical site infection: -Had redo ORIF 10/07, hardware removed, cultures neg *Presumed osteomyelitis: *Acute on chronic anemia: received 1 unit RBC 10/09, no evidence of active bleeding at the surgical side or GI bleeding -on ASA and effient and heparin SQ, following hemoglobin post op, iron studies not consistent with iron deficiency *CAD s/p CRISTAL to OM placed 05/2020: continued on aspirin and effient perioperatively. Continue atorvastatin and nitro prn. *C diff colitis: *DM type II. *HFrEF - stable, *CKD III - stable, *COPD - *Paroxysmal atrial fibrillation - stable, *HTN: mostly HTN but labile, started norvasc and had increased coreg but then had bp drop,stopped norvasc *Depression: continue Sertraline. *Hx of bladder CA (no lung mass on last two chest xrays) - details unclear however concerning for malignancy, being worked up outpt by urology per recent [facility] notes P: -Ortho -ID consulted, IV Vancomycin/Rocephin. plan for 6 weeks IV abx. weekly labs while on IV abx. PICC placed -continue oral vancomycin until off IV abx -basal and SSI -on home lasix -on Coreg (increased), nitrate for HFrEF, holding home Chlorthalidone for now & would avoid it indefinitely with CKD. -started low dose norvasc -Continue home Incruse Ellipta and Symbicort and albuterol nebs prn. -currently not on anticoagulation, probably because of dual antiplatelet therapy. Continue home amiodarone. -CM for placement, awaiting -DVT prophylaxis: heparin SQ DNR Time Spent With Patient Time: Total time spent is greater than 50% in coordination of care (as documented) at patient's floor/unit and/or counseling patient: QUALITY VTE Deep Vein Thrombosis/Pulmonary Embolism Present on Admission: No
[2020-10-15] MEDS: INSULIN LISPRO 1 UNIT/0.01 ML UNIT SQ SCH ×4 (07:47→20:52)
[2020-10-15] MEDS: OMEPRAZOLE 20 MG CAPSULE PO SCH ×2 (07:47→17:18)
[2020-10-15] MEDS: CARVEDILOL 6.25 MG TABLET PO SCH ×2 (08:31→17:18)
[2020-10-15] MEDS: AMIODARONE HCL 200 MG TABLET PO SCH ×2 (08:31→17:18)
[2020-10-15] MEDS: VANCOMYCIN 1,500 MG in 0.9 % SODIUM CHLORIDE 500 ML IV SCH (09:56)
[2020-10-15] MEDS: FUROSEMIDE 20 MG TABLET PO SCH (09:58)
[2020-10-15] MEDS: DOCUSATE SODIUM 100 MG CAPSULE PO SCH ×2 (09:58→19:37)
[2020-10-15] MEDS: ATORVASTATIN 40 MG TABLET PO SCH (09:58)
[2020-10-15] MEDS: amLODIPine 5 MG TABLET PO SCH (09:59)
[2020-10-15] MEDS: ISOSORBIDE DINITRATE 10 MG TABLET PO SCH ×3 (10:00→20:50)
[2020-10-15] MEDS: cefTRIAXone 1 GM VIAL IV SCH (10:19)
[2020-10-15] MEDS: ASPIRIN 81 MG TAB.CHEW CHEWED SCH (10:22)
[2020-10-15] MEDS: GABAPENTIN 400 MG CAPSULE PO SCH (10:22)
[2020-10-15] MEDS: VANCOMYCIN ORAL SOL 1,000 MG/10 ML BOTTLE PO SCH ×4 (10:25→20:50)
--- NOTE | 2020-10-15 10:27 | XRay Report ---
CLINICAL INFORMATION: bloating, nausea COMPARISON: 06/14/2020 FINDINGS: The stool gas pattern is unremarkable. There is no free air, soft tissue mass, organomegaly or pathologic calcification. IMPRESSION: Normal abdomen Interpreted and Authenticated by: Larry Shaikh 10/15/20
[2020-10-15] MEDS: EFFIENT 10 MG PO SCH (11:21)
[2020-10-15] MEDS: HYDROcodone/APAP 10/325MG TABLET PO PRN ×2 (11:40→20:53)
[2020-10-15] MEDS: HEPARIN 5,000 UNIT/ML VIAL SQ SCH ×2 (11:40→20:52)
[2020-10-15] MEDS: SERTRALINE 50 MG TABLET PO SCH (11:41)
[2020-10-15] MEDS: INCRUSE ELLIPTA 62.5 MCG INH SCH (11:42)
[2020-10-15] MEDS: BUDESONIDE INH SCH ×2 (14:38→21:56)
[2020-10-15] MEDS: FORMOTEROL INH SCH ×2 (14:38→21:56)
--- NOTE | 2020-10-15 14:49 | Cat Scan Report ---
CLINICAL INFORMATION: COMPARISON: None. TECHNIQUE: 2.5 mm helical slices were obtained in the skull base to vertex. Following reconstruction, axial reformatted images were reviewed at bone and parenchymal windows. The exam was performed using radiation dose optimization techniques including, but not limited to, automated exposure control, adjustment of the mA and/or kV according to patient size and use of iterative reconstruction technique. FINDINGS: The ventricles, sulci, fissures, and cisterns are enlarged compatible with moderate atrophy. There is asymmetric atrophy of the temporal lobes. Extensive chronic ischemic changes seen throughout the deep cerebral white matter. There is no intracerebral hemorrhage, mass effect or edema or other acute posttraumatic change. Bone windows show no fracture or other osseous abnormality IMPRESSION: Moderate atrophy with asymmetric atrophy of the temporal lobes suggestive of Alzheimer's disease. Extensive chronic ischemic changes in the deep cerebral white matter. No intracerebral hemorrhage or posttraumatic change Interpreted and Authenticated by: Larry Shaikh 10/15/20
--- NOTE | 2020-10-15 14:52 | Cat Scan Report ---
CLINICAL INFORMATION: Trauma COMPARISON: None. TECHNIQUE: 0.625 mm helical slices were obtained from the skull base through the superior T2 end plate, and following reconstruction, 2.5 mm sagittal, coronal and axial reformations were then processed. The exam was reviewed at bone and soft tissue windows. The exam was performed using radiation dose optimization techniques including, but not limited to, automated exposure control, adjustment of the mA and/or kV according to patient size and use of iterative reconstruction technique. FINDINGS: Sagittal reformatted images show 3 mm of C3 and 2 mm C4 anterior subluxation due to degenerative facet disease. The remaining cervical spine is anatomically aligned. There is no fracture or other osseous abnormality. The cervical cord is normal in contour and caliber without hemorrhage or other abnormality. Calcific plaque present in both carotid bifurcations. No other soft tissue abnormality. At C2-3, mild broad disc protrusion minimally impinges the anterior thecal sac At C3-4, mild broad protrusion left-sided asymmetry and facet arthropathy result in moderate central canal and left lateral recess IV foraminal narrowing impinging the exiting left C4 nerve root At C4-5, mild broad disc protrusion left-sided asymmetry results in mild left lateral recess narrowing possible impingement of the exiting left C5 nerve root At C5-6, mild broad disc protrusion results in mild thecal sac impingement and minimal left lateral recess narrowing At C6-7 mild broad disc protrusion left-sided asymmetry appreciated The C7-T1 disc level is normal. IMPRESSION: No fracture or posttraumatic change Multilevel degeneration - as described Interpreted and Authenticated by: Larry Shaikh 10/15/20
[2020-10-15] MEDS: SENNOSIDES 1 TABLET PO SCH (19:37)
[2020-10-15] MEDS: INSULIN GLARGINE, HUMAN 1 UNIT/0.01 ML SQ SCH (20:51)
[2020-10-15] MEDS: DULoxetine 30 MG CAPSULE PO SCH (20:53)
[2020-10-16] MEDS: HYDROcodone/APAP 10/325MG TABLET PO PRN ×2 (04:42→09:57)
[2020-10-16] MEDS: hydrALAZINE 20 MG/ML VIAL IV PRN (04:43)
[2020-10-16] MEDS: ACETAMINOPHEN 325 MG TABLET PO PRN (06:42)
[2020-10-16] MEDS: OMEPRAZOLE 20 MG CAPSULE PO SCH ×2 (06:43→16:36)
[2020-10-16] MEDS: INSULIN LISPRO 1 UNIT/0.01 ML UNIT SQ SCH ×3 (06:53→16:43)
[2020-10-16] MEDS: AMIODARONE HCL 200 MG TABLET PO SCH ×2 (07:47→16:36)
[2020-10-16] MEDS: CARVEDILOL 6.25 MG TABLET PO SCH ×2 (07:47→16:37)
[2020-10-16] MEDS: ATORVASTATIN 40 MG TABLET PO SCH (08:50)
[2020-10-16] MEDS: ASPIRIN 81 MG TAB.CHEW CHEWED SCH (08:50)
[2020-10-16] MEDS: SERTRALINE 50 MG TABLET PO SCH (08:50)
[2020-10-16] MEDS: GABAPENTIN 400 MG CAPSULE PO SCH (08:51)
[2020-10-16] MEDS: amLODIPine 5 MG TABLET PO SCH (08:51)
[2020-10-16] MEDS: FUROSEMIDE 20 MG TABLET PO SCH (08:51)
[2020-10-16] MEDS: DOCUSATE SODIUM 100 MG CAPSULE PO SCH (08:51)
[2020-10-16] MEDS: cefTRIAXone 1 GM VIAL IV SCH (08:52)
[2020-10-16] MEDS: HEPARIN 5,000 UNIT/ML VIAL SQ SCH (08:52)
[2020-10-16] MEDS: ISOSORBIDE DINITRATE 10 MG TABLET PO SCH ×2 (08:52→15:00)
[2020-10-16] MEDS: 0.9 % SODIUM CHLORIDE 10 ML SYRINGE IV SCH (08:54)
[2020-10-16] MEDS: VANCOMYCIN ORAL SOL 1,000 MG/10 ML BOTTLE PO SCH ×3 (08:55→16:37)
[2020-10-16 10:15] LABS: Basophils # (Auto) 0.06 K/mcL (0.00-0.20); Basophils % (Auto) 0.6 % (0.0-2.0); Eosinophils # (Auto) 0.18 K/mcL (0.00-0.70); Eosinophils % (Auto) 1.9 % (0.0-7.0); Hematocrit 27.1 % (36.0-48.0); Hemoglobin 8.7 g/dL (12.0-15.0); Lymphocytes % (Auto) 18.2 % (15.0-49.0); Mean Cell Volume 104.6 fL (80.0-100.0); Mean Corpuscular HGB Conc 32.1 g/dL (31.0-36.0); Mean Platelet Volume 9.5 fL (7.4-10.4); Monocytes # (Auto) 0.55 K/mcL (0.10-0.90); Monocytes % (Auto) 5.9 % (1.0-12.0); Neutrophils % (Auto) 73.4 % (38.0-78.0); Platelet Count 275 K/mcL (140-440); RBC 2.59 M/mcL (4.00-5.20); Red Cell Distribution Width 15.8 % (11.5-14.5); WBC 9.3 K/mcL (4.5-11.0)
[2020-10-16 10:34] LABS: ALT/SGPT 11 U/L (<40); AST/SGOT 20 U/L (<32); Albumin 2.7 gm/dL (3.2-5.2); Albumin/Globulin Ratio 0.8 (1.0-2.3); Alkaline Phosphatase 66 U/L (39-117); Bilirubin,Total < 0.2 mg/dL (0.1-1.0); Blood Urea Nitrogen 15 mg/dL (8-23); Calcium 8.3 mg/dL (8.6-10.4); Carbon Dioxide 22 mmol/L (22-30); Chloride 100 mmol/L (96-108); Globulin 3.2 gm/dL (2.2-3.7); Glomerular Filtration Rate 41; Glucose 224 mg/dL (70-105)
[2020-10-16] MEDS: EFFIENT 10 MG PO SCH (11:26)
[2020-10-16] MEDS: BUDESONIDE INH SCH (11:26)
[2020-10-16] MEDS: FORMOTEROL INH SCH (11:26)
[2020-10-16] MEDS: INCRUSE ELLIPTA 62.5 MCG INH SCH (11:26)
--- NOTE | 2020-10-16 16:57 | Discharge Summary ---
Discharge Provider Provider Patient information: Note initiated : 10/16/20 at 4:56 pm Service Date, if different from initiated Date: [] Patient: Radha Martínez 75 y/o F admitted on 10/06/20 for Ankle Fracture. Chief Complaint: [] Date of admission: 10/06/20 17:49 Consults: 10/06/20 20:19 Consult to Physician [CONS] Routine Comment: Consulting Provider: Duane Antony Reason For Exam: Physician to Consult 10/08/20 17:37 Consult to Physician [CONS] Routine Comment: Consulting Provider: Gio Charles Reason For Exam: Physician to Consult Discharge Meds Discharge Medications Home Medications Incruse Ellipta 1 inh INHALATION DAILY 10/07/20 [History Confirmed 10/07/20 Last Taken Unknown] Trulicity 1.5 mg SUBCUT WEEKLY 10/07/20 [History Confirmed 10/07/20 Last Taken Unknown] amiodarone 200 mg PO BID 10/07/20 [History Confirmed 10/07/20 Last Taken Unknown] aspirin 81 mg PO DAILY 10/07/20 [History Confirmed 10/07/20 Last Taken Unknown] atorvastatin 40 mg PO HS 10/07/20 [History Confirmed 10/07/20 Last Taken Unknown] budesonide-formoterol [Symbicort] 2 puff INHALATION BID 10/07/20 [History Confirmed 10/07/20 Last Taken Unknown] carvedilol 3.125 mg PO BID 10/07/20 [History Confirmed 10/07/20 Last Taken Unknown] ergocalciferol (vitamin D2) [Vitamin D2] 1,250 mcg PO WEEKLY 10/07/20 [History Confirmed 10/07/20 Last Taken Unknown] furosemide 20 mg PO DAILY 10/07/20 [History Confirmed 10/07/20 Last Taken Unknown] gabapentin 400 mg PO DAILY 10/07/20 [History Confirmed 10/07/20 Last Taken Unknown] hydrocodone-acetaminophen 1 tab PO TID 10/07/20 [History Confirmed 10/07/20 Last Taken Unknown] isosorbide dinitrate 10 mg PO TID 10/07/20 [History Confirmed 10/07/20 Last Taken Unknown] prasugrel 10 mg PO DAILY 10/07/20 [History Confirmed 10/07/20 Last Taken Unknown] sertraline 25 mg PO DAILY 10/07/20 [History Confirmed 10/07/20 Last Taken Unknown] ceftriaxone 1 g IV QDAY #35 each 10/11/20 [Rx Last Taken Unknown] vancomycin 1 g IV DAILY #35 each 10/11/20 [Rx Last Taken Unknown] vancomycin 125 mg PO QID #40 ea 10/11/20 [Rx Last Taken Unknown] carvedilol 6.25 mg PO BIDCC #30 tab 10/13/20 [Rx Last Taken Unknown] COURSE Time Spent with Patient Time attestation: Total time spent providing and/or coordinating discharge services: EXAM Constitutional Vitals: Temp Pulse Resp BP Pulse Ox 98.2 F 58 L 20 123/64 93 10/16/20 12:00 10/16/20 12:00 10/16/20 12:00 10/16/20 12:00 10/16/20 12:00 Discharge Data Data Completed and Pending Labs on day of discharge: Labs from last 24 hours 10/16/20 10/16/20 09:38 09:37 WBC 9.3 RBC 2.59 L Hgb 8.7 L Hct 27.1 L MCV 104.6 H MCH 33.6 MCHC 32.1 RDW 15.8 H Plt Count 275 MPV 9.5 Neut % (Auto) 73.4 Lymph % (Auto) 18.2 [place] % (Auto) 5.9 Eos % (Auto) 1.9 Baso % (Auto) 0.6 Lymph # (Auto) 1.70 [place] # (Auto) 0.55 Eos # (Auto) 0.18 Baso # (Auto) 0.06 Absolute Neutrophils 6.83 Sodium 132 L Potassium 4.3 Chloride 100 Carbon Dioxide 22 Anion Gap 10.0 BUN 15 Creatinine 1.3 H GFR Calculation 41 Glucose 224 H Calcium 8.3 L Total Bilirubin < 0.2 AST 20 ALT 11 Alkaline Phosphatase 66 Total Protein 5.9 Albumin 2.7 L Globulin 3.2 Albumin/Globulin Ratio 0.8 L Discharge Plan Patient/Caregiver Discharge Instructions Activity: increase activity as tolerated and other Diet: Consistent Carbohydrate Activity Restrictions/Additional Instructions: pharmacy to dose vancomycin. weekly cbc/cmp/esr/crp/vanc trough per Dr. Atkinson - send results to his office. picc line care until IV abx finish then d/c. Ceftriaxone and Vancomycin for 6 week course to finish 11/18/2020. Follow-up with PCP in 3 to 7 days. Prescriptions: New vancomycin 1,000 mg Recon Soln 125 mg PO QID Qty: 40 RF: 0 vancomycin 1,000 mg recon soln 1 g IV DAILY Qty: 35 RF: 0 ceftriaxone 1 gram recon soln 1 g IV QDAY Qty: 35 RF: 0 carvedilol 6.25 mg Tablet 6.25 mg PO BIDCC Qty: 30 RF: 0 Continued amiodarone 200 mg tablet 200 mg PO BID RF: 0 aspirin 81 mg tablet,chewable 81 mg PO DAILY RF: 0 atorvastatin 40 mg tablet 40 mg PO HS RF: 0 carvedilol 3.125 mg tablet 3.125 mg PO BID RF: 0 furosemide 20 mg tablet 20 mg PO DAILY RF: 0 gabapentin 400 mg capsule 400 mg PO DAILY RF: 0 hydrocodone-acetaminophen 5-325 mg tablet 1 tab PO TID RF: 0 Incruse Ellipta 62.5 mcg/actuation blister with device 1 inh INHALATION DAILY RF: 0 isosorbide dinitrate 10 mg tablet 10 mg PO TID RF: 0 prasugrel 10 mg tablet 10 mg PO DAILY RF: 0 sertraline 25 mg tablet 25 mg PO DAILY RF: 0 budesonide-formoterol [Symbicort] 160-4.5 mcg/actuation HFA aerosol inhaler 2 puff INHALATION BID RF: 0 Trulicity 1.5 mg/0.5 mL pen injector 1.5 mg SUBCUT WEEKLY RF: 0 ergocalciferol (vitamin D2) [Vitamin D2] 1,250 mcg (50,000 unit) capsule 1,250 mcg PO WEEKLY RF: 0 Discontinued chlorthalidone 25 mg tablet 25 mg PO DAILY RF: 0 Follow Up Plan Follow up with: Duane Antony MD [Physician] - Gio Charles MD [Physician] - Patient Disposition: Xfer SNF Prognosis: Undetermined Rehab Potential: Fair I certify that the patient requires SNF services: Yes Overall status at discharge: patient is progressing back to baseline QUALITY VTE Deep Vein Thrombosis/Pulmonary Embolism Present on Admission: No
--- NOTE | 2020-10-17 10:45 | Discharge Summary ---
Discharge Provider Provider Patient information: Note initiated : 10/16/20 at 5:29 pm Service Date, if different from initiated Date: [] Patient: Radha Martínez 75 y/o F admitted on 10/16/20 for Rehab, right ankle fracture. Chief Complaint: [] Date of admission: 10/16/20 16:57 Discharge date: 10/16/20 Consults: 10/16/20 17:16 Consult to Physician [CONS] Routine Comment: Consulting Provider: Duane Antony Reason For Exam: Physician to Consult Consult to Physician [CONS] Routine Comment: Consulting Provider: Gio Charles Reason For Exam: Physician to Consult Discharge Meds Discharge Medications Home Medications Incruse Ellipta 1 inh INHALATION DAILY 10/07/20 [History Confirmed 10/07/20 Last Taken Unknown] Trulicity 1.5 mg SUBCUT WEEKLY 10/07/20 [History Confirmed 10/07/20 Last Taken Unknown] amiodarone 200 mg PO BID 10/07/20 [History Confirmed 10/17/20 Last Taken 10/16/20 17:00] aspirin 81 mg PO DAILY 10/07/20 [History Confirmed 10/17/20 Last Taken 10/16/20 08:50] atorvastatin 40 mg PO HS 10/07/20 [History Confirmed 10/17/20 Last Taken 10/16/20 08:50] budesonide-formoterol [Symbicort] 2 puff INHALATION BID 10/07/20 [History Confirmed 10/07/20 Last Taken Unknown] carvedilol 3.125 mg PO BID 10/07/20 [History Confirmed 10/07/20 Last Taken Unknown] ergocalciferol (vitamin D2) [Vitamin D2] 1,250 mcg PO WEEKLY 10/07/20 [History Confirmed 10/07/20 Last Taken Unknown] furosemide 20 mg PO DAILY 10/07/20 [History Confirmed 10/17/20 Last Taken 10/16/20 08:50] gabapentin 400 mg PO DAILY 10/07/20 [History Confirmed 10/17/20 Last Taken 10/16/20 08:50] hydrocodone-acetaminophen 1 tab PO TID 10/07/20 [History Confirmed 10/17/20 Last Taken 10/16/20 09:55] isosorbide dinitrate 10 mg PO TID 10/07/20 [History Confirmed 10/17/20 Last Taken 10/16/20 21:30] prasugrel 10 mg PO DAILY 10/07/20 [History Confirmed 10/07/20 Last Taken Unknown] sertraline 25 mg PO DAILY 10/07/20 [History Confirmed 10/17/20 Last Taken 10/16/20 21:05] ceftriaxone 1 g IV QDAY #35 each 10/11/20 [Rx Last Taken Unknown] vancomycin 1 g IV DAILY #35 each 10/11/20 [Rx Last Taken Unknown] vancomycin 125 mg PO QID #40 ea 10/11/20 [Rx Last Taken Unknown] carvedilol 6.25 mg PO BIDCC #30 tab 10/13/20 [Rx Last Taken Unknown] COURSE Hospital Course Hospital course: Ms. Martínez is a 75 year old female with an extensive past medical history including CAD status post CRISTAL to OM 05/2020 (on ASA and Effient), HFrEF (LVEF 20%), COPD, Diabetes mellitus type II, afib (currently off anticoagulation), CKD III, previous smoker (quite one month ago), bladder and lung mass of unknown etiology, recent ankle fracture s/p ORIF who came to [facility] by direct transfer from [facility] for a new displaced right fibular shaft fracture (at the site of recently placed hardware) as well as draining foot and ankle wounds concerning for an infected surgical site and possible underlying osteomyelitis. The patient was admitted to the OSH on 10/03, managed with IV antibiotics and after discussing the findings with Dr. Antony who performed the initial surgery at [facility], she was transferred to [facility] due to a staff shortage at [facility]. The hospital stay at [facility] was complicated by C diff colitis which was diagnosed on 10/05 and treated with oral Vancomycin. Per the available documents the hospital stay was otherwise uncomplicated. She arrived in stable condition and underwent surgery 10/07 with redo ORIF and removal of hardware. *Right ankle fracture with Probable surgical site infection: -Had redo ORIF 10/07, hardware removed, cultures neg *Presumed osteomyelitis: -ID consulted, IV Vancomycin/Rocephin. plan for 6 weeks IV abx. weekly labs while on IV abx. PICC placed *Acute on chronic anemia: received 1 unit RBC 10/09, no evidence of active bleeding at the surgical side or GI bleeding -on ASA and effient and heparin SQ, following hemoglobin post op, iron studies not consistent with iron deficiency *CAD s/p CRISTAL to OM placed 05/2020: continued on aspirin and effient perioperatively. Continue atorvastatin and nitro prn. *C diff colitis: -continue oral vancomycin until off IV abx *DM type II. -basal and SSI *HFrEF - stable, -on home lasix -on Coreg (increased), nitrate for HFrEF, holding home Chlorthalidone for now & would avoid it indefinitely with CKD. -started low dose norvasc *CKD III - stable, *COPD - *Paroxysmal atrial fibrillation - stable, -currently not on anticoagulation, probably because of dual antiplatelet therapy. Continue home amiodarone. *HTN: mostly HTN but labile, started norvasc and had increased coreg but then had bp drop,stopped norvasc *Depression: continue Sertraline. *Hx of bladder CA (no lung mass on last two chest xrays) - details unclear however concerning for malignancy, being worked up outpt by urology per recent [facility] notes -Continue home Incruse Ellipta and Symbicort and albuterol nebs prn. -DVT prophylaxis: heparin SQ - DNR Interval history: 10/07-ORIF today with revision ORIF, I&D, and removal of hardware, syndesomosis repair, cultures taken and pending. 10/08-stable, pain controlled with prn norco, resumed home lasix. ID consulted- on Vancomycin IV and Cefepime. 10/09-hgb trending down, received 1 unit RBC. PICC placed. 10/10-discharge planning for SNF. 10/11 Other than a headache. No new complaints. No overnight events. Cefepime changed to Rocephin per Dr. Charles. 10/12 Doing well. No overnight events or new complaints. 10/13 No overnight event or new complaints. Blood pressure typically been running high and so we have been titrating her blood pressure medications but then it dropped last night. Has been well since little bit on the higher side. Stop Norvasc, we will continue the Coreg at the increased dose 10/14 No change in status. No overnight events. Blood pressures labile. Awaiting placement. 10/15 Has some nausea this morning and some abdominal bloating. But does have bowel movements. No other new complaints or overnight events. 10/16 Pt was initially schedued to be discharged to SNF today. But repeat Covid 19 test, showing positive. Thus she was refused by the facility. She was discharged to Swing bed today. Discharge diagnosis: ankle fracture Time Spent with Patient Time attestation: Total time spent providing and/or coordinating discharge services: EXAM Additional findings Additional findings: General: Alert, Awake, No acute Distress Eyes/N/T: EOMI, Head/Neck: neck supple, CV: RRR, No murmurs, Pulm: Clear b/l, no wheezing/rhonchi/rales Abd: soft, nontender, +BS x4 Ext: no clubbing/cyanosis/edema, right foot in dressings/splint Neuro: Alert, no focal deficits, moves all extremities, Skin: warm/dry Discharge Plan Patient/Caregiver Discharge Instructions Activity: increase activity as tolerated and other Diet: Consistent Carbohydrate Activity Restrictions/Additional Instructions: pharmacy to dose vancomycin. weekly cbc/cmp/esr/crp/vanc trough per Dr. Atkinson - send results to his office. picc line care until IV abx finish then d/c. Ceftriaxone and Vancomycin for 6 week course to finish 11/18/2020. Follow-up with PCP in 3 to 7 days. Prescriptions: New vancomycin 1,000 mg Recon Soln 125 mg PO QID Qty: 40 RF: 0 vancomycin 1,000 mg recon soln 1 g IV DAILY Qty: 35 RF: 0 ceftriaxone 1 gram recon soln 1 g IV QDAY Qty: 35 RF: 0 carvedilol 6.25 mg Tablet 6.25 mg PO BIDCC Qty: 30 RF: 0 Continued amiodarone 200 mg tablet 200 mg PO BID RF: 0 aspirin 81 mg tablet,chewable 81 mg PO DAILY RF: 0 atorvastatin 40 mg tablet 40 mg PO HS RF: 0 carvedilol 3.125 mg tablet 3.125 mg PO BID RF: 0 furosemide 20 mg tablet 20 mg PO DAILY RF: 0 gabapentin 400 mg capsule 400 mg PO DAILY RF: 0 hydrocodone-acetaminophen 5-325 mg tablet 1 tab PO TID RF: 0 Incruse Ellipta 62.5 mcg/actuation blister with device 1 inh INHALATION DAILY RF: 0 isosorbide dinitrate 10 mg tablet 10 mg PO TID RF: 0 prasugrel 10 mg tablet 10 mg PO DAILY RF: 0 sertraline 25 mg tablet 25 mg PO DAILY RF: 0 budesonide-formoterol [Symbicort] 160-4.5 mcg/actuation HFA aerosol inhaler 2 puff INHALATION BID RF: 0 Trulicity 1.5 mg/0.5 mL pen injector 1.5 mg SUBCUT WEEKLY RF: 0 ergocalciferol (vitamin D2) [Vitamin D2] 1,250 mcg (50,000 unit) capsule 1,250 mcg PO WEEKLY RF: 0 Discontinued chlorthalidone 25 mg tablet 25 mg PO DAILY RF: 0 Follow Up Plan Follow up with: Duane Antony MD [Physician] - Gio Charles MD [Physician] - Patient Disposition: [facility] Swing [facility] Prognosis: Undetermined Rehab Potential: Fair I certify that the patient requires SNF services: Yes Overall status at discharge: patient is progressing back to baseline Discharge Date/Time: 10/16/20 16:57 Discharge Location: [facility] Comment: To shira
--- NOTE | 2020-11-27 07:53 | Consultation ---
DATE OF CONSULTATION: 11/26/2020 CHIEF COMPLAINT: Left ankle fracture dislocation, which is above and involving a previous ankle ORIF. HISTORY OF PRESENT ILLNESS: The patient underwent an ankle open reduction and internal fixation. This was a bimalleolar ankle fracture. She had a large posterior malleolar fracture, which was fixated with lag screws and a fibular fracture, which was stabilized with a lateral plate and lag screws. This was about 3 weeks prior to her admission. She was discharged. The patient ultimately was discharged to home, was to be nonweightbearing in a boot; however, because of social situations patient reports that she was not unable to maintain her weightbearing restrictions. She has been full weightbearing. The patient presented to the hospital in [place], [place] and had fractured above her plate laterally. She had a subluxed into the large coronal/posterior malleolar split and had dislocated posteriorly and laterally. The medial aspect of the ankle was protruding and compromising her skin, which had caused a small erosion on this medial side. The distal tibia/medial malleolus fracture and her medial malleolar screws were not apparent in the wound, but were very close to protruding through the skin. This medial wound was about 1 cm in length. PAST MEDICAL HISTORY: Her past medical history is complicated by one being a chronic smoker, history of diabetes, history of atrial fibrillation, neuropathy and chronic kidney disease. PAST SURGICAL HISTORY: She had the recent open reduction and internal fixation. PHYSICAL EXAMINATION: LUNGS: Clear. HEART. Heart is irregular. ABDOMEN: Benign. LEFT LOWER EXTREMITY: Again, there is significant deformity of the ankle. She has displaced the distal portion laterally. The medial wound is about 1 cm in length and there is no evidence of hardware, but this is a full thickness wound that is clearly over where the medial malleolar fracture is because of the lateral dislocation/subluxation. This causes the medial fracture to be prominent. Her lateral wound is well-healed. There is not excessive erythema and no obvious evidence of infection other than this open wound. There is some generalized rubor and swelling, which is consistent with her walking on this fracture/essentially Charcot type of problem. Her radiographs demonstrate a fracture above her fibular plate, demonstrates that she is dislocated posteriorly and laterally. She has a displaced this coronal split of the tibia and the talus is now dislocated into this cleft. IMPRESSION: Very complicated ankle fracture dislocation. This generally has developed because of her limited ability to be nonambulatory and her altered sensation secondary to her diabetes, which limits her ability for protective sensation. PLAN: Consideration is for open reduction internal fixation revision versus possible amputation. This has been discussed at length with the patient. We will proceed with a revision open reduction internal fixation as well as irrigation and debridement. Risks, complications and limitations have been discussed at length with the patient. GDD:vesna Job ID: [id number] Doc ID: [id number] Duane Antony MD
== END 2020-10-16 16:57 | disposition other institution (70) | DRG 493 ==
LOC: MEDSUR 17:49
PROVIDERS: ADMIT Internal Medicine; ATTEND Internal Medicine